=== PATIENT | female | born 1950 | race African-American/Black ===

== ENCOUNTER 2016-07-16 18:44 | Observation (INO) | payer OTHER ==
--- NOTE | 2016-07-16 18:52 | PDOC ---
History of Present Illness - General History Source: Patient Exam Limitations: No Limitations - History of Present Illness Initial Comments: 07/16/16 19:15 Patient is a 66 year old female with significant past medical history of hypertension, IDDM and schizophrenia who presents to the ED via EMS from [facility] for falling asleep at dinner. As per EMS they had difficulty waking the patient up so she was brought in to the ED. Patient in ED has 101 fever orally. Patient is a poor historian. Patient denies any fever, chills, nausea, vomiting or diarrhea. Social history: smoker (1 pack a day ) <Ute Arizmendi - Last Filed: 07/16/16 21:45> <Chantal Bridges - Last Filed: 07/17/16 16:23> - General Chief Complaint: Weakness Stated Complaint: WEAKNESS Time Seen by Provider: 07/16/16 18:52 Past History <Ute Arizmendi - Last Filed: 07/16/16 21:45> - Past Medical History Diabetes: Yes HTN: Yes Hypercholesterolemia: Yes Seizures: Yes - Surgical History Cardiac Surgery: Yes (CARD CATH) - Immunization History Immunization Up to Date: Yes - Psycho/Social/Smoking Cessation Hx Anxiety: No Suicidal Ideation: No Smoking Status: Yes Smoking History: Current every day smoker Number of Cigarettes Smoked Daily: 5 'Breaking Loose' booklet given: 01/28/14 Hx Alcohol Use: No Drug/Substance Use Hx: No <Chantal Bridges - Last Filed: 07/17/16 16:23> - Past Medical History Allergies/Adverse Reactions: Allergies Allergy/AdvReac Type Severity Reaction Status Date / Time No Known Allergies Allergy Verified 07/16/16 19:51 Home Medications: Ambulatory Orders Amlodipine Besylate [Norvasc -] 5 mg PO DAILY 01/28/14 Labetalol HCl [Normodyne -] 400 mg PO Q12H 01/28/14 Levetiracetam [Levetiracetam ER] 500 mg PO BID 01/28/14 Losartan Potassium 50 mg PO DAILY 01/28/14 Acetaminophen [Mapap] 650 mg PO BID 07/16/16 Hydralazine HCl [Apresoline -] 25 mg PO TID 07/16/16 Insulin Lispro [Humalog] 4 unit SQ TID 07/16/16 Mirtazapine [Remeron -] 15 mg PO HS 07/16/16 Pantoprazole Sodium 40 mg PO DAILY 07/16/16 Rivaroxaban [Xarelto -] 20 mg PO DAILY 07/17/16 Review of Systems - Review of Systems Able to Perform ROS?: Yes Comments:: 07/16/16 19:16 CONSTITUTIONAL: Absent: fever, no chills, no fatigue EYES: Absent: visual changes ENT: Absent: ear pain, no sore throat CARDIOVASCULAR: Absent: chest pain, no palpitations RESPIRATORY: Absent: cough, no SOB GI: Absent: abdominal pain, no nausea, no vomiting, no constipation, no diarrhea GENITOURINARY: Absent: dysuria, no frequency, no hematuria MUSCULOSKELETAL: Absent: back pain, no arthralgia, no myalgia SKIN: Absent: rash NEURO: Absent: headache <Ute Arizmendi - Last Filed: 07/16/16 21:45> *Physical Exam - Vital Signs Last Vital Signs Temp Pulse Resp BP Pulse Ox 101 F H 20 126/74 100 07/16/16 18:47 07/16/16 18:47 07/16/16 18:47 07/16/16 18:47 - Physical Exam Comments: 07/16/16 19:16 GENERAL: Well-appearing, well-nourished. No apparent distress. HEENT: Normocephalic, atraumatic. PERRL, EOM intact. CARDIOVASCULAR: Normal S1, S2. Regular rate and rhythm. PULMONARY: Clear to auscultation bilaterally. ABDOMEN: Soft, non-distended, non-tender. EXTREMITIES: Normal ROM in all four extremities. No gross deformities. SKIN: Warm, dry. No rash NEUROLOGICAL: No focal neurological deficits. <Ute Arizmendi - Last Filed: 07/16/16 21:45> Heart Score/ECG Review #1 07/16/16 21:[address] Bridges. Impression: Normal sinus rhythm Left ventricular hypertrophy with repolarization abnormality Vent rate 76 bpm QRS duration 90 ms <Ute Arizmendi - Last Filed: 07/16/16 21:45> ED Treatment Course - LABORATORY CBC & Chemistry Diagram: 07/16/16 19:10 07/16/16 19:10 - RADIOLOGY Radiology Studies Ordered: 07/16/16 21:45 EXAM: CT head without contrast FINDINGS: Surgical skin breana and soft tissue scalp swelling is noted over the left parietal region near the vertex. There is no skull fracture seen. There is no acute intracranial hemorrhage. There is mild hyperostosis frontalis interna. There is moderate diffuse cortical atrophy present. There are regions of chronic infarction noted in the bilateral basal ganglia. There is no obvious acute infarction. No mass lesion is seen. Arterial calcifications are noted. <Ute Arizmendi - Last Filed: 07/16/16 21:45> - LABORATORY CBC & Chemistry Diagram: 07/17/16 06:30 07/17/16 06:25 <Chantal Bridges - Last Filed: 07/17/16 16:23> Medical Decision Making - Medical Decision Making 07/16/16 19:04 66 yo female BIBA from [facility] for weakness -apparently sleeping during dinner -found to have oral temp 101 ROS: patients denies all symptoms PMH HTN,IDDM,Schizophrenia 07/17/16 16:21 CAT scan of the head did not show any acute intracranial pathology There is no leukocytosis on her CBC Date did show urinary tract infection She was given IV Levaquin Tox screen was positive for ecstasy first cardiac enzyme was negative Review chemistry reveals some renal insufficiency/dehydration Glucose initially is only about 70 and she was given some orange juice 66-year-old female who is slightly somnolent found to be on neck strain have your a 101 temp and a UA was admitted for OBS , IV antibiotics <Chantal Bridges - Last Filed: 07/17/16 16:23> *DC/Admit/Observation/Transfer - Attestations Scribe Attestion: 07/16/16 19:16 Documentation prepared by CHRISTINA Garcia, acting as director of medical staff services for Chantal Bridges MD. <Ute Arizmendi - Last Filed: 07/16/16 21:45> - Discharge Dispostion Admit: Yes <Chantal Bridges - Last Filed: 07/17/16 16:23> Diagnosis at time of Disposition: Ecstasy use disorder, mild, abuse Fever Qualifiers: Fever type: other Qualified Code(s): R50.81 - Fever presenting with conditions classified elsewhere Altered mental status Qualifiers: Altered mental status type: somnolence Qualified Code(s): R40.0 - Somnolence UTI (urinary tract infection) Qualifiers: Urinary tract infection type: acute cystitis Hematuria presence: without hematuria Qualified Code(s): N30.00 - Acute cystitis without hematuria - Referrals
[2016-07-16] MEDS ORDERED: ACETAMINOPHEN 325 MG TABLET (FP) PO ONE (19:02)
[2016-07-16] MEDS ORDERED: ACETAMINOPHEN 325 MG TABLET (FP) ONE (19:25)
[2016-07-16 19:29] LABS: MCH 24.9 pg (25.7-33.7); MCHC 32.4 g/dl (32.0-36.0); MEAN CELL VOLUME 77.1 fl (80-96); MEAN PLT VOLUME 8.9 fl (7.5-11.1); PLATELET COUNT 199 K/MM3 (134-434); RDW 18.3 % (11.6-15.6); WHITE BLOOD COUNT 9.7 K/mm3 (4.0-10.0)
[2016-07-16 20:06] LABS: ALBUMIN 3.4 g/dl (3.4-5.0); BILIRUBIN,TOTAL 0.8 mg/dL (0.2-1.0); CALCIUM 8.9 mg/dL (8.5-10.1); CREATININE 1.9 mg/dL (0.55-1.02); TOT PROT 7.6 g/dl (6.4-8.2)
[2016-07-16 20:08] LABS: TROPONIN I 0.04 ng/ml (0.00-0.05)
[2016-07-16 20:30] LABS: PLATELET ESTIMATE ADEQUATE (NORMAL)
[2016-07-16 21:46] LABS: URINE APPEARANCE CLEAR; URINE BILIRUBIN NEGATIVE (NEGATIVE); URINE COLOR YELLOW; URINE GLUCOSE (UA) NEGATIVE (NEGATIVE); URINE KETONE TRACE (NEGATIVE); URINE NITRITE POSITIVE (NEGATIVE); URINE UROBILINOGEN 2.0 E.U/dl E.U./dl (0.2-1.0)
[2016-07-16 21:50] LABS: URINE BLOOD 1+ (NEGATIVE); URINE LEUK ESTERASE 1+ (NEGATIVE); URINE PROTEIN 1+ (NEGATIVE)
[2016-07-16 22:01] LABS: URINE BACTERIA RARE /hpf (NONE SEEN); URINE MUCUS RARE; URINE RBC 14 /hpf (0-3); URINE WBC 48 /hpf (3-5)
[2016-07-16] MEDS ORDERED: LEVOFLOXACIN 500 MG IVPB 100 ML IVPB ONE ×2 (22:06→22:28)
[2016-07-16 22:07] LABS: URINE MARIJUANA THC NEGATIVE ng/ml (CUTOFF=50)
--- NOTE | 2016-07-17 01:30 | PN ---
<Bertram Diop - Last Filed: 07/17/16 01:30> Teaching Attending Note Name of Resident: Kimberlyn Weiss ATTENDING PHYSICIAN STATEMENT I saw and evaluated the patient. I reviewed the resident's note and discussed the case with the resident. I agree with the resident's findings and plan as documented. SUBJECTIVE: OBJECTIVE: ASSESSMENT AND PLAN: <Lashawn Johnson - Last Filed: 07/17/16 02:31> Teaching Attending Note ATTENDING PHYSICIAN STATEMENT I saw and evaluated the patient. I reviewed the resident's note and discussed the case with the resident. I agree with the resident's findings and plan as documented. SUBJECTIVE: Patient is a 66 yo schizophrenic woman with a significant PMHx of HTN, seizures , CAD and IDDM who presents to the ED from [facility] with syncopal episode this evening. Patient is a poor historian. apprentice embalmer report patient was found slumped over at dinner and was difficult to wake up. She notes she had a cough recently. Pt states she feels fine upon evaluation. OBJECTIVE: Last Vital Signs Temp Pulse Resp BP Pulse Ox 101 F H 73 20 130/82 95 07/16/16 18:47 07/16/16 23:07 07/16/16 23:07 07/16/16 23:07 07/16/16 23:07 GENERAL: Awake, alert, oriented, in no acute distress. Speaking full sentences. HEENT: Atraumatic. PERRLA, EOMI. Moist mucosa. No JVD LUNGS: No distress, speaks full sentences, bilateral course expiratory wheezing HEART: Regular rate and rhythm, normal S1 and S2, 2/6 systolic ejection murmur, rubs or gallops, peripheral pulses normal and equal bilaterally. ABDOMEN: Soft, nontender, normoactive bowel sounds. No guarding, no rebound. No masses EXTREMITIES: Normal inspection, Normal range of motion, no edema. No clubbing or cyanosis. NEUROLOGICAL: Cranial nerves II through XII grossly intact. Normal speech, normal gait, no focal sensorimotor deficits SKIN: Warm, Dry, normal turgor, no rashes or lesions noted. ECG NSR @ 76 bpm Left ventricular hypertrophy with repolarization abnormality Abnormal ECG ASSESSMENT AND PLAN: Who presents with syncope and acute on chronic renal failure, positive MDMA and UTI. 1.) Syncope -Echo -Carotid US -Trend tropins/ ECG -Most likely from drug use / UTI 2.) Positive MDMA - IVF 3.) UTI -Levaquin 4.) IDDM -RAISS -Finger sticks -Diabetic diet 5.) Healthcare acquired pneumonia -Urine antigens -Sputum culture -Flu swab -Continue levaquin 6.) Questionable COPD -SOB -Continue with solsumedrol -Out patient PFT -Duonabs -Eventually needs CT for long smoking history 7.) Seizure disorder -Continue with Keppra -Check levels in AM 8.) DEZ -check urine lytes -hydrate -consider renal US -hold ARB DVT ppx Low risk ambulate Of note: Pt on Xarelto. Hold due to renal failure. Unknown reason, need Hx from [facility]. Documentation prepared by Lashawn Johnson, acting as medical transcription for Bertram Diop M.D.
--- NOTE | 2016-07-17 02:05 | HP ---
CHIEF COMPLAINT: Near syncop PCP: Gissell Galvin HISTORY OF PRESENT ILLNESS: Unable to obtain due to patients medical condition and is a poor historian. Information retrieved from ED provider, labs, images, and previous documentation. Patient is a 66 year old female from [facility] with a PMHx of IDDM , HTN, CAD, seizures, and schizophrenia who presents to the ED for a syncopal episode noticed by the [facility] staff. Patient was having dinner and slumped over, as per nursing staff. Patient is unable to provide history and when asked why she was brought here she states " the [facility] didn't think I look right." Patient does state that she has a nonproductive cough for the last couple of days. ER course was notable for: (1) Chest x-ray (2) Levaquin started (3) Blood and urine cultures Recent Travel: Denies PAST MEDICAL HISTORY: IDDM, HTN, CAD, seizures, and schizophrenia PAST SURGICAL HISTORY: Cardiac catheterization Social History: Smoking: Smoking since she was 20 years old. Now smokes 1 pack per three days Alcohol: Denies Drugs: Denies Family History: Denies Allergies: No Known Allergies Allergy (Verified 07/16/16 19:51) HOME MEDICATIONS: Medication Instructions Recorded Amlodipine Besylate [Norvasc -] 5 mg PO DAILY 01/28/14 Labetalol HCl [Normodyne -] 400 mg PO Q12H 01/28/14 Levetiracetam [Levetiracetam ER] 500 mg PO BID 01/28/14 Losartan Potassium 50 mg PO DAILY 01/28/14 Acetaminophen [Mapap] 650 mg PO BID 07/16/16 Hydralazine HCl [Apresoline -] 25 mg PO TID 07/16/16 Insulin Lispro [Humalog] 0 unit SQ TID 07/16/16 Mirtazapine [Remeron -] 15 mg PO HS 07/16/16 Pantoprazole Sodium 40 mg PO DAILY 07/16/16 Rivaroxaban [Xarelto] 1 each PO DAILY 07/16/16 REVIEW OF SYSTEMS CONSTITUTIONAL: Absent: fever, chills, diaphoresis, generalized weakness, malaise, loss of appetite, weight change HEENT: Absent: rhinorrhea, nasal congestion, throat pain, throat swelling, difficulty swallowing, mouth swelling, ear pain, eye pain, visual changes CARDIOVASCULAR: Absent: chest pain, syncope, palpitations, irregular heart rate, lightheadedness , peripheral edema RESPIRATORY: cough Absent: shortness of breath, dyspnea with exertion, orthopnea, wheezing, stridor , hemoptysis GASTROINTESTINAL: Absent: abdominal pain, abdominal distension, nausea, vomiting, diarrhea, constipation, melena, hematochezia GENITOURINARY: Absent: dysuria, frequency, urgency, hesitancy, hematuria, flank pain, genital pain MUSCULOSKELETAL: Absent: myalgia, arthralgia, joint swelling, back pain, neck pain SKIN: Absent: rash, itching, pallor HEMATOLOGIC/IMMUNOLOGIC: Absent: easy bleeding, easy bruising, lymphadenopathy, frequent infections ENDOCRINE: Absent: unexplained weight gain, unexplained weight loss, heat intolerance, cold intolerance NEUROLOGIC: Absent: headache, focal weakness or paresthesias, dizziness, unsteady gait, seizure, mental status changes, bladder or bowel incontinence PSYCHIATRIC: Absent: anxiety, depression, suicidal or homicidal ideation, hallucinations. PHYSICAL EXAMINATION Vital Signs - 24 hr 07/16/16 07/16/16 18:47 23:07 Temperature 101 F H Pulse Rate [ 73 Apical] Respiratory 20 20 Rate Blood Pressure 126/74 Blood Pressure 130/82 [Right Arm] O2 Sat by Pulse 100 95 Oximetry (%) GENERAL: Awake, alert, and fully oriented, in no acute distress. HEAD: Normal with no signs of trauma. EYES: Pupils equal, round and reactive to light, extraocular movements intact, sclera anicteric, conjunctiva clear. No lid lag. EARS, NOSE, THROAT: Ears normal, nares patent, oropharynx clear without exudates. Moist mucous membranes. NECK: Normal range of motion, supple without lymphadenopathy, JVD, or masses. LUNGS: Bilateral expiratory wheezing. No crackles. No accessory muscle use. HEART: Regular rate and rhythm, 2/6 systolic ejection murmur. Normal S1 and S2 without rub or gallop. ABDOMEN: Soft, nontender, not distended, normoactive bowel sounds, no guarding, no rebound, no masses. No hepatomegaly or splenomegaly. MUSCULOSKELETAL: No CVA tenderness. UPPER EXTREMITIES: No peripheral edema. LOWER EXTREMITIES: No peripheral edema. NEUROLOGICAL: Cranial nerves II-XII intact. Normal speech. PSYCHIATRIC: Cooperative. Good eye contact. Appropriate mood and affect. SKIN: Warm, dry, normal turgor, no rashes or lesions noted. Laboratory Results - last 24 hr 07/16/16 07/16/16 07/16/16 19:10 19:10 19:10 WBC 9.7 D RBC 4.35 Hgb 10.9 D Hct 33.6 MCV 77.1 L MCHC 32.4 RDW 18.3 H Plt Count 199 D MPV 8.9 D Neutrophils % 76.0 D Lymphocytes % 16.0 D Monocytes % 8.0 Differential Comment Manual diff done Platelet Estimate Adequate Platelet Comment Few giant plts Morphology Comment Slide scanned Sodium 141 Potassium 3.9 Chloride 107 Carbon Dioxide 24 Anion Gap 10 BUN 25 H Creatinine 1.9 H D Creat Clearance w eGFR 26.61 POC Glucometer Random Glucose 73 L D Lactic Acid 0.774 Calcium 8.9 Total Bilirubin 0.8 D AST 16 ALT 16 Alkaline Phosphatase 86 Creatine Kinase 221 H D CK-MB (CK-2) 1.745 Troponin I 0.04 Total Protein 7.6 Albumin 3.4 Urine Color Urine Appearance Urine pH Ur Specific [place] Urine Protein Urine Glucose (UA) Urine Ketones Urine Blood Urine Nitrite Urine Bilirubin Urine Urobilinogen Ur Leukocyte Esterase Urine RBC Urine WBC Urine Bacteria Urine Mucus Opiates Screen Methadone Screen Barbiturate Screen Phencyclidine Screen Ur Amphetamines Screen MDMA (Ecstasy) Screen Benzodiazepines Screen Cocaine Screen U Marijuana (THC) Screen 07/16/16 07/16/16 07/16/16 21:35 21:35 22:20 WBC RBC Hgb Hct MCV MCHC RDW Plt Count MPV Neutrophils % Lymphocytes % Monocytes % Differential Comment Platelet Estimate Platelet Comment Morphology Comment Sodium Potassium Chloride Carbon Dioxide Anion Gap BUN Creatinine Creat Clearance w eGFR POC Glucometer Random Glucose Lactic Acid 0.727 Calcium Total Bilirubin AST ALT Alkaline Phosphatase Creatine Kinase CK-MB (CK-2) Troponin I Total Protein Albumin Urine Color Yellow Urine Appearance Clear Urine pH 6.0 Ur Specific [place] 1.018 Urine Protein 1+ H Urine Glucose (UA) Negative Urine Ketones Trace H Urine Blood 1+ H Urine Nitrite Positive Urine Bilirubin Negative Urine Urobilinogen 2.0 e.u/dl H Ur Leukocyte Esterase 1+ H Urine RBC 14 Urine WBC 48 Urine Bacteria Rare Urine Mucus Rare Opiates Screen Negative Methadone Screen Negative Barbiturate Screen Negative Phencyclidine Screen Negative Ur Amphetamines Screen Negative MDMA (Ecstasy) Screen Positive Benzodiazepines Screen Negative Cocaine Screen Negative U Marijuana (THC) Screen Negative 07/17/16 01:11 WBC RBC Hgb Hct MCV MCHC RDW Plt Count MPV Neutrophils % Lymphocytes % Monocytes % Differential Comment Platelet Estimate Platelet Comment Morphology Comment Sodium Potassium Chloride Carbon Dioxide Anion Gap BUN Creatinine Creat Clearance w eGFR POC Glucometer [phone] Random Glucose Lactic Acid Calcium Total Bilirubin AST ALT Alkaline Phosphatase Creatine Kinase CK-MB (CK-2) Troponin I Total Protein Albumin Urine Color Urine Appearance Urine pH Ur Specific [place] Urine Protein Urine Glucose (UA) Urine Ketones Urine Blood Urine Nitrite Urine Bilirubin Urine Urobilinogen Ur Leukocyte Esterase Urine RBC Urine WBC Urine Bacteria Urine Mucus Opiates Screen Methadone Screen Barbiturate Screen Phencyclidine Screen Ur Amphetamines Screen MDMA (Ecstasy) Screen Benzodiazepines Screen Cocaine Screen U Marijuana (THC) Screen EKG: NSR @ 76 bpm, Left ventricular hypertrophy with repolarization abnormality Head CT: No acute pathology Chest X-ray: Right lobe infiltrate. Cardiomegaly ASSESSMENT/PLAN: Patient is a 66 year old female with a PMHx of IDDM, HTN, seizures, and schizophrenia who presented with near syncope episode from the [facility]. Patient found to have UTI, DEZ, and pneumonia. Patient admitted to telemetry for further monitoring and management. Near syncopal episode -CT negative for acute pathology -First troponin 0.4. Continue to trend -ECHO ordered -Carotid Doppler ordered Positive MDMA -IV Normal Saline @50 mls/hr -Treat symptomatically and continue to monitor Urinary Tract Infection -U/A positive for nitrite and 1+ Leukocyte esterase -Levaquin 500mg IV given in ED -Continue Levaquin 250mg IV renally dosed -Urine cultures sent Healthcare acquired Pneumonia -Chest x-ray reveals infiltrate -Continue Levaquin 250mg IV daily -Flu swab -Urine antigen -Sputum culture COPD Exacerbation -No prior history but questionable due to history of smoking -Wheezing on examination -Solu-medrol 125mg IV -DuoNeb PRN -Blood cultures sent Acute Kidney Injury -Creatinine 1.9 with baseline of 1.0-1.1 -Light hydration with IV Normal Saline @50 mls/hr -Urine electrolytes -Kidney Ultrasound -Repeat BMP Seizure Disorder -Continue home medication Keppra 500mg BID -Check levels in the morning HTN -Continue home medication Hydralazine 25mg TID -Continue Home medication Labetalol HCl 400mg Q12H -Continue home medication Norvasc 5mg daily IDDM -Insulin sliding scale -BGM Schizophrenia -Continue Remeron 15mg po HS F/E/N -IV Normal Saline @50 mls/hr -Electrolytes wnl -Sodium controlled diet Prophylaxis -SCD's for prophylaxis -Protonix 40mg PO Disposition -Full code -Admitted to telemetry Patient's ambulatory medications show that she is on Xarelto but for unknown reason. [facility] contacted and were unsure why she is on Xarelto. They said that there will be someone available at [phone] to provide more information. Contact information: [facility] Number: [phone] Patients room number is #219 Visit type - Emergency Visit Emergency Visit: Yes ED Registration Date: 07/16/16 Care time: The patient presented to the Emergency Department on the above date and was hospitalized for further evaluation of their emergent condition. - New Patient This patient is new to me today: Yes Date on this admission: 07/16/16 - Critical Care Critical Care patient: No
[2016-07-17] MEDS ORDERED: methylPREDNISolone NA SUCC 125 MG/2 ML VIAL IVPB ONE (02:21)
[2016-07-17] MEDS ORDERED: ALBUTEROL SO4 2.5/IPRATROPIUM 0.5 INH SOL 3 ML VIAL.NEB. NEB ONE ×3 (02:21→15:06)
[2016-07-17] MEDS ORDERED: ALBUTEROL SO4 2.5/IPRATROPIUM 0.5 INH SOL 3 ML VIAL.NEB. NEB PRN (02:24)
[2016-07-17] MEDS ORDERED: methylPREDNISolone NA SUCC 125 MG/2 ML VIAL ONE (03:02)
[2016-07-17] MEDS: SODIUM CHLORIDE 1,000 ML IV SCH ×2 (03:19→17:46)
[2016-07-17] MEDS ORDERED: hydrALAZINE HCL 25 MG TABLET (FP) ONE (06:31)
[2016-07-17] MEDS: hydrALAZINE HCL 25 MG TABLET (FP) PO SCH ×3 (06:41→23:04)
[2016-07-17] MEDS: INSULIN SLIDING SCALE (NOVOLOG) 1 VIAL SQ SCH ×4 (07:06→23:05)
[2016-07-17 07:15] LABS: BASOPHIL 0.1 % (0-2.0); MCH 25.2 pg (25.7-33.7); MCHC 32.4 g/dl (32.0-36.0); MEAN CELL VOLUME 77.6 fl (80-96); MEAN PLT VOLUME 9.2 fl (7.5-11.1); NEUTROPHILS 89.9 % (42.8-82.8); PLATELET COUNT 189 K/MM3 (134-434); RDW 18.1 % (11.6-15.6); WHITE BLOOD COUNT 8.8 K/mm3 (4.0-10.0)
[2016-07-17 08:13] LABS: ALBUMIN 3.2 g/dl (3.4-5.0); BILIRUBIN,TOTAL 1.1 mg/dL (0.2-1.0); CALCIUM 9.6 mg/dL (8.5-10.1); CREATININE 1.6 mg/dL (0.55-1.02); TOT PROT 7.2 g/dl (6.4-8.2)
[2016-07-17] MEDS ORDERED: LEVOFLOXACIN 250 MG IVPB 50 ML IVPB ONE ×2 (10:00→12:26)
[2016-07-17] MEDS ORDERED: PATIENT'S OWN MEDICATION (NON-FORMULARY) (Rivaroxaban [Xarelto] 1 EACH) PO SCH (10:00)
--- NOTE | 2016-07-17 11:06 | EKG ---
Test Reason : Blood Pressure : / mmHG Vent. Rate : 076 BPM Atrial Rate : 076 BPM P-R Int : 160 ms QRS Dur : 090 ms QT Int : 412 ms P-R-T Axes : 060 -20 130 degrees QTc Int : 463 ms NORMAL SINUS RHYTHM LEFT VENTRICULAR HYPERTROPHY WITH REPOLARIZATION ABNORMALITY ABNORMAL ECG WHEN COMPARED WITH ECG OF 28-JAN-2014 18:36, NO SIGNIFICANT CHANGE WAS FOUND Confirmed by SOHA AMOS MD ([id number]) on 07/17/2016 11:05:56 AM Referred By: Confirmed By:SOHA AMOS MD
[2016-07-17] MEDS: levETIRAcetam XR 500 MG TAB PO SCH ×2 (12:37→23:04)
[2016-07-17] MEDS: LABETALOL HCL 200 MG TABLET (FP) PO SCH ×2 (12:38→23:05)
[2016-07-17] MEDS: PANTOPRAZOLE 40 MG TABLET (FP) PO SCH (12:38)
[2016-07-17] MEDS: amLODIPine BESYLATE 5 MG TABLET (FP) PO SCH (12:38)
[2016-07-17 14:37] VITALS: BMI 27.1
[2016-07-17] MEDS: ALBUTEROL SO4 2.5/IPRATROPIUM 0.5 INH SOL 3 ML VIAL.NEB. NEB SCH (15:06)
--- NOTE | 2016-07-17 18:10 | HOSP ---
Physical Examination Vital Signs: Vital Signs Temperature 98.2 F 07/17/16 09:00 Pulse Rate 90 07/17/16 14:30 Respiratory Rate 18 07/17/16 14:30 Blood Pressure 129/69 07/17/16 14:30 O2 Sat by Pulse Oximetry (%) 97 07/17/16 09:20 Labs: CBC, BMP 07/17/16 06:30 07/17/16 06:25 Hospitalist Encounter Assessment: Subjective: Pt seen and examined in ED. She doesn't remember what happened. She was told she feels asleep at dinner. She currently feels fine, she is eating, denies dysuria, CP, sob, dizziness, change in vision Objective: Last Vital Signs Temp Pulse Resp BP Pulse Ox 98.2 F 90 18 129/69 97 07/17/16 09:00 07/17/16 14:30 07/17/16 14:30 07/17/16 14:30 07/17/16 09:20 PE Neuro: alert, awake, cn 2-12intact HEENT: without teeth Pulm: basilar crackles, no sob CV: s1 s2 rrr no mrg Abd: s nt nd +bs Ext: no edema, warm CBCD WBC 8.8 K/mm3 (4.0-10.0) 07/17/16 06:30 RBC 4.37 M/mm3 (3.60-5.2) 07/17/16 06:30 Hgb 11.0 GM/dL (10.7-15.3) 07/17/16 06:30 Hct 33.9 % (32.4-45.2) 07/17/16 06:30 MCV 77.6 fl (80-96) L 07/17/16 06:30 MCHC 32.4 g/dl (32.0-36.0) 07/17/16 06:30 RDW 18.1 % (11.6-15.6) H 07/17/16 06:30 Plt Count 189 K/MM3 (134-434) 07/17/16 06:30 MPV 9.2 fl (7.5-11.1) 07/17/16 06:30 CMP Sodium 139 mmol/L (136-145) 07/17/16 06:25 Potassium 3.9 mmol/L (3.5-5.1) 07/17/16 06:25 Chloride 105 mmol/L (98-107) 07/17/16 06:25 Carbon Dioxide 24 mmol/L (21-32) 07/17/16 06:25 Anion Gap 10 (8-16) 07/17/16 06:25 BUN 24 mg/dL (7-18) H 07/17/16 06:25 Creatinine 1.6 mg/dL (0.55-1.02) H 07/17/16 06:25 Creat Clearance w eGFR 32.45 (>60) 07/17/16 06:25 Calcium 9.6 mg/dL (8.5-10.1) 07/17/16 06:25 Total Bilirubin 1.1 mg/dL (0.2-1.0) H D 07/17/16 06:25 AST 18 U/L (15-37) 07/17/16 06:25 ALT 13 U/L (12-78) 07/17/16 06:25 Alkaline Phosphatase 81 U/L (45-117) 07/17/16 06:25 Total Protein 7.2 g/dl (6.4-8.2) 07/17/16 06:25 Albumin 3.2 g/dl (3.4-5.0) L 07/17/16 06:25 Current Medications Generic Name Dose Route Start Last Admin Trade Name Michaelq PRN Reason Stop Dose Admin Albuterol/Ipratropium 1 amp 07/17/16 18:00 07/17/16 15:06 Duoneb - NEB 1 amp QIDR LEV Administration Amlodipine Besylate 5 mg 07/17/16 10:00 07/17/16 12:38 Norvasc - PO 5 mg DAILY LEV Administration Hydralazine HCl 25 mg 07/17/16 06:00 07/17/16 15:07 Apresoline - PO 25 mg TID LEV Administration Sodium Chloride 1,000 mls @ 50 mls/hr 07/17/16 02:45 07/17/16 17:46 Normal Saline - IV 07/18/16 02:37 50 mls/hr ASDIR LEV Administration Levofloxacin 50 mls @ 50 mls/hr 07/18/16 10:00 Levaquin 250 Mg Premixed Ivpb - IVPB DAILY LEV Insulin Aspart 1 vial 07/17/16 07:00 07/17/16 17:45 Novolog Vial Sliding Scale - SQ 6 units ACHS LEV Administration Protocol Insulin Aspart 4 units 07/18/16 07:00 Novolog Vial SQ TIDAC LEV Labetalol HCl 400 mg 07/17/16 10:00 07/17/16 12:38 Normodyne - PO 400 mg BID LEV Administration Levetiracetam 500 mg 07/17/16 10:00 07/17/16 12:37 Keppra Xr - PO 500 mg BID LEV Administration Mirtazapine 15 mg 07/17/16 22:00 Remeron - PO HS LEV Pantoprazole Sodium 40 mg 07/17/16 10:00 07/17/16 12:38 Protonix - PO 40 mg DAILY LEV Administration Rivaroxaban 20 mg 07/18/16 10:00 Xarelto - PO DAILY [facility] Assessment: 66 year old female with a PMHx of IDDM, HTN, seizures, and schizophrenia admitted with near syncope episode at adult home. Plan: 1. Near syncopal episode - Mental status appears at baseline, possibly infectious etiology - CTH negative for acute pathology - CD no sign of hemodynamically significant stenosis - ECHO without significant change, nml LVSF, size, trace MR, TR, ?impaired LV relaxation 2. +MDMA on UA - Unclear how pt with mdma, possible wrong urine sample? - Will discuss with pt, half life is 7hrs, no repeat necessary 3. UTI - Urine cx pending - Continue levaquin 250m daily - Dose all meds for cr cl 43.7 4. Community acquired PNA - BC pending, no further fevers - L base infiltrate - On levaquin (day 2) 5. DEZ - D/w PCP Dr. Galvin [phone], cr is around baseline - Continue gentle fluids - Kidney US w/o hydro , atrophic left kidney - Monitor BMP 6. Hx of DVT - Continue xaralto 20mg daily 7. COPD Exacerbation - Resolved, no wheezing - Duonebs PRN 8. Seizure Disorde - No seizure in many years, per PCP - Continue home medication Keppra 500mg BID 9. HTN, controlled - Continue Hydralazine 25mg TID - Continue Labetalol HCl 400mg BID - ContinueNorvasc 5mg daily 10. DM II - Novolog 4units TID - ISS, BGM ACHS 11. Schizophrenia -Continue Remeron 15mg po HS 12. Nutrition - Pt still awaiting dentures - Chopped diet - Magic cup/ensure
[2016-07-17] MEDS ORDERED: LEVOFLOXACIN 500 MG IVPB 100 ML IVPB ONE (22:00)
[2016-07-17] MEDS ORDERED: INSULIN (NOVOLOG) ASPART 100 UNITS/ML 10ML VIAL ONE (22:17)
[2016-07-17] MEDS ORDERED: MIRTAZAPINE 15 MG TABLET (FP) ONE (22:27)
[2016-07-17] MEDS ORDERED: levETIRAcetam 500 MG TABLET (FP) PO ONE (22:27)
[2016-07-17] MEDS: MIRTAZAPINE 15 MG TABLET (FP) PO SCH (23:05)
[2016-07-18] MEDS: INSULIN SLIDING SCALE (NOVOLOG) 1 VIAL SQ SCH ×4 (05:59→22:15)
[2016-07-18] MEDS: INSULIN (NOVOLOG) ASPART 100 UNITS/ML 10ML VIAL SQ SCH ×3 (05:59→16:52)
[2016-07-18] MEDS: hydrALAZINE HCL 25 MG TABLET (FP) PO SCH ×3 (06:02→22:15)
[2016-07-18] MEDS: RIVAROXABAN 20 MG TABLET PO SCH (09:12)
[2016-07-18] MEDS: LABETALOL HCL 200 MG TABLET (FP) PO SCH ×2 (09:12→22:15)
[2016-07-18] MEDS: PANTOPRAZOLE 40 MG TABLET (FP) PO SCH (09:13)
[2016-07-18] MEDS: LEVOFLOXACIN 250 MG IVPB 50 ML IVPB SCH (09:13)
[2016-07-18] MEDS: amLODIPine BESYLATE 5 MG TABLET (FP) PO SCH (09:13)
[2016-07-18] MEDS: levETIRAcetam XR 500 MG TAB PO SCH ×2 (09:23→22:16)
[2016-07-18 10:10] LABS: ALBUMIN 2.9 g/dl (3.4-5.0); CALCIUM 8.4 mg/dL (8.5-10.1); CREATININE 1.8 mg/dL (0.55-1.02)
[2016-07-18 10:12] LABS: BILIRUBIN,TOTAL 0.4 mg/dL (0.2-1.0); TOT PROT 6.7 g/dl (6.4-8.2)
[2016-07-18] MEDS: ALBUTEROL SO4 2.5/IPRATROPIUM 0.5 INH SOL 3 ML VIAL.NEB. NEB SCH ×2 (12:18→14:33)
--- NOTE | 2016-07-18 12:22 | PN ---
Physical Exam: SUBJECTIVE: Patient seen and examined. She feels well, she denies sob/coughing/ loss of consciousness. PT states she normally goes to [place], she remembers the ambulance ride OBJECTIVE: Vital Signs Period Temp Pulse Resp BP Sys/Miller Pulse Ox Last 24 Hr 97.7 F-98.1 F 72-90 18-20 129-162/66-90 95 PE Neuro: alert, awake, cn 2-12intact HEENT: without teeth Pulm: diffuse fine wheeze, otherwise clear CV: s1 s2 rrr no mrg Abd: s nt nd +bs Ext: no edema, warm CMP Sodium 142 mmol/L (136-145) 07/18/16 05:40 Potassium 3.8 mmol/L (3.5-5.1) 07/18/16 05:40 Chloride 111 mmol/L (98-107) H 07/18/16 05:40 Carbon Dioxide 20 mmol/L (21-32) L 07/18/16 05:40 Anion Gap 11 (8-16) 07/18/16 05:40 BUN 41 mg/dL (7-18) H D 07/18/16 05:40 Creatinine 1.8 mg/dL (0.55-1.02) H 07/18/16 05:40 Creat Clearance w eGFR 28.33 (>60) 07/18/16 05:40 Calcium 8.4 mg/dL (8.5-10.1) L 07/18/16 05:40 Total Bilirubin 0.4 mg/dL (0.2-1.0) D 07/18/16 05:40 AST 19 U/L (15-37) 07/18/16 05:40 ALT 16 U/L (12-78) D 07/18/16 05:40 Alkaline Phosphatase 72 U/L (45-117) 07/18/16 05:40 Total Protein 6.7 g/dl (6.4-8.2) 07/18/16 05:40 Albumin 2.9 g/dl (3.4-5.0) L 07/18/16 05:40 Active Medications Generic Name Dose Route Start Last Admin Trade Name Freq PRN Reason Stop Dose Admin Albuterol/Ipratropium 1 amp 07/17/16 18:00 07/18/16 12:18 Duoneb - NEB Not Given QIDR LEV Amlodipine Besylate 5 mg 07/17/16 10:00 07/18/16 09:13 Norvasc - PO 5 mg DAILY LEV Administration Hydralazine HCl 25 mg 07/17/16 06:00 07/18/16 06:02 Apresoline - PO 25 mg TID LEV Administration Levofloxacin 50 mls @ 50 mls/hr 07/18/16 10:00 07/18/16 09:13 Levaquin 250 Mg Premixed Ivpb - IVPB 50 mls/hr DAILY LEV Administration Insulin Aspart 1 vial 07/17/16 07:00 07/18/16 11:54 Novolog Vial Sliding Scale - SQ 2 units ACHS LEV Administration Protocol Insulin Aspart 4 units 07/18/16 07:00 07/18/16 11:55 Novolog Vial SQ 4 units TIDAC [facility] Administration Labetalol HCl 400 mg 07/17/16 10:00 07/18/16 09:12 Normodyne - PO 400 mg BID LEV Administration Levetiracetam 500 mg 07/17/16 10:00 07/18/16 09:23 Keppra Xr - PO 500 mg BID LEV Administration Mirtazapine 15 mg 07/17/16 22:00 07/17/16 23:05 Remeron - PO 15 mg HS LEV Administration Pantoprazole Sodium 40 mg 07/17/16 10:00 07/18/16 09:13 Protonix - PO 40 mg DAILY LEV Administration Rivaroxaban 20 mg 07/18/16 10:00 07/18/16 09:12 Xarelto - PO 20 mg DAILY LEV Administration Microbiology 07/16/16 21:35 Urine Culture - Preliminary Urine - Urine - Catheterized Lactose Fermenting Neg Bacilli Lactose Fermenting Neg Bacilli#2 07/16/16 21:40 Blood Culture - Preliminary Blood - Peripheral Venous NO GROWTH OBTAINED AFTER 24 HOURS, INCUBATION TO CONTINUE FOR 4 DAYS. 07/16/16 19:10 Blood Culture - Preliminary Blood - Peripheral Venous NO GROWTH OBTAINED AFTER 24 HOURS, INCUBATION TO CONTINUE FOR 4 DAYS. 07/16/16 21:50 Respiratory Virus Panel - Preliminary Nasopharyngeal Swab Imaging: - CTH negative for acute pathology - CD no sign of hemodynamically significant stenosis - ECHO 07/17: without significant change, nml LVSF, size, trace MR, TR, ? impaired LV relaxation Assessment: 66 year old female with a PMHx of IDDM, HTN, seizures, and schizophrenia admitted with near syncope episode at adult [facility]. Plan: 1. Near syncopal episode - Resolved - Mental status appears at baseline, possibly infectious etiology 2. +MDMA on UA - She doesn't know what MDMA or ecstasy is - Remeron/Keppra not indicated to have positives 3. UTI - Urine cx pre alejo LFNB - Continue levaquin 250m daily (day3) - Dose all meds for cr cl 40 4. Community acquired PNA - BC NGTD - On levaquin (day 3) 5. DEZ - Cr baseline ~1.6 - Continue gentle fluids - Kidney US w/o hydro, atrophic left kidney - Will obtain urine studies 6. Hx of DVT - Continue xaralto 20mg daily 7. COPD Exacerbation - Duonebs lev qid 8. Seizure Disorde - No seizure in many years, per PCP - Continue home medication Keppra 500mg BID 9. HTN, controlled - Continue Hydralazine 25mg TID - Continue Labetalol HCl 400mg BID - Continue Norvasc 5mg daily 10. DM II - Novolog 4units TID - ISS, BGM ACHS 11. Schizophrenia -Continue Remeron 15mg po HS 12. Nutrition - Pt still awaiting dentures - Chopped diet - Magic cup/ensure Dispo: - PCP Dr. Galvin [phone] Visit type - Emergency Visit Emergency Visit: Yes ED Registration Date: 07/17/16 Care time: The patient presented to the Emergency Department on the above date and was hospitalized for further evaluation of their emergent condition. - New Patient This patient is new to me today: Yes Date on this admission: 07/18/16 - Critical Care Critical Care patient: No
[2016-07-18] MEDS: SODIUM CHLORIDE 1,000 ML IV SCH (13:27)
[2016-07-18] MEDS ORDERED: PT OWN MED DRAWER 7, Y5N ONE (21:30)
[2016-07-18] MEDS: MIRTAZAPINE 15 MG TABLET (FP) PO SCH (22:16)
[2016-07-19] MEDS: ALBUTEROL SO4 2.5/IPRATROPIUM 0.5 INH SOL 3 ML VIAL.NEB. NEB SCH ×3 (00:30→11:10)
[2016-07-19] MEDS: INSULIN (NOVOLOG) ASPART 100 UNITS/ML 10ML VIAL SQ SCH ×2 (06:16→11:55)
[2016-07-19] MEDS: hydrALAZINE HCL 25 MG TABLET (FP) PO SCH ×2 (06:17→13:19)
[2016-07-19] MEDS: INSULIN SLIDING SCALE (NOVOLOG) 1 VIAL SQ SCH ×2 (06:17→11:55)
[2016-07-19 09:27] LABS: CALCIUM 7.9 mg/dL (8.5-10.1); CREATININE 1.7 mg/dL (0.55-1.02)
[2016-07-19] MEDS: LEVOFLOXACIN 250 MG IVPB 50 ML IVPB SCH (09:50)
[2016-07-19] MEDS: RIVAROXABAN 20 MG TABLET PO SCH (09:50)
[2016-07-19] MEDS: LABETALOL HCL 200 MG TABLET (FP) PO SCH (09:50)
[2016-07-19] MEDS: amLODIPine BESYLATE 5 MG TABLET (FP) PO SCH (09:51)
[2016-07-19] MEDS: PANTOPRAZOLE 40 MG TABLET (FP) PO SCH (09:51)
[2016-07-19] MEDS: levETIRAcetam XR 500 MG TAB PO SCH (09:52)
[2016-07-19 10:44] VITALS: BP 134/62; TEMP 98
--- NOTE | 2016-07-19 13:07 | DS ---
Physical Exam: SUBJECTIVE: Patient seen and examined. She offers no complaints, she feels about the same. Denies SOB, difficulty swallowing. OBJECTIVE: Vital Signs Period Temp Pulse Resp BP Sys/Miller Pulse Ox Last 24 Hr 97.8 F-98.8 F 64-72 16-20 122-135/62-93 96-97 PE Neuro: alert, awake, cn 2-12intact HEENT: without teeth Pulm: CTAB CV: s1 s2 rrr no mrg Abd: s nt nd +bs Ext: no edema, warm Laboratory Results - last 24 hr 07/18/16 07/18/16 07/18/16 14:00 14:00 14:00 Sodium Potassium Chloride Carbon Dioxide Anion Gap BUN Creatinine POC Glucometer Random Glucose Calcium U Random Total Protein Cancelled 20 H Ur Random Sodium 64 Ur Random Potassium 28.1 Ur Random Chloride 33 Urine Creatinine Cancelled Cancelled 112.0 Protein/Creatinin Ratio Cancelled 0.48275 07/18/16 07/18/16 07/19/16 15:42 22:15 05:38 Sodium 145 Potassium 4.0 Chloride 115 H Carbon Dioxide 20 L Anion Gap 10 BUN 39 H Creatinine 1.7 H POC Glucometer 194 208 Random Glucose 76 D Calcium 7.9 L U Random Total Protein Ur Random Sodium Ur Random Potassium Ur Random Chloride Urine Creatinine Protein/Creatinin Ratio 07/19/16 07/19/16 05:58 11:54 Sodium Potassium Chloride Carbon Dioxide Anion Gap BUN Creatinine POC Glucometer 87 133 Random Glucose Calcium U Random Total Protein Ur Random Sodium Ur Random Potassium Ur Random Chloride Urine Creatinine Protein/Creatinin Ratio HOSPITAL COURSE: Date of Admission:07/17/16 Date of Discharge: 07/19/16 Minutes to complete discharge: 35 Discharge Summary Reason For Visit: AMS UTI FEVER Current Active Problems Altered mental status (Acute) Ecstasy use disorder, mild, abuse (Acute) Fever (Acute) UTI (urinary tract infection) (Acute) Hospital Course: Initial Hospital Course: Briefly, this 66 year old female from [facility] with a PMHx of IDDM, HTN, CAD, seizures, and schizophrenia presented to the ED for a syncopal episode noticed by the halfway staff. Patient was having dinner and slumped over, as per nursing staff. On arrival to the ED per the ED noted, pt was unable to provide a hx as to why she came, however upon questioning the following day pt states she remembers the ambulance ride, however not falling asleep. When she woke up they told her what happened and that she should go to the hospital, although she did not want to, she says she normally goes [facility]. She reported a non productive cough the last few days prior to being seen. Imaging: - CTH negative for acute pathology - CD no sign of hemodynamically significant stenosis - ECHO 07/17: without significant change, nml LVSF, size, trace MR, TR, ? impaired LV relaxation Subsequent Hospital Course/Progress Note/Discharge Summary by a/p: Assessment: 66 year old female with a PMHx of IDDM, HTN, seizures, and schizophrenia admitted with near syncope episode at adult home [facility]. Plan: 1. Near syncopal episode - Resolved - Imaging negative as above, echo w no change - Mental status appears at baseline, likely infectious etiology 2. UTI - urine cx with e coli and klebsiella pna - To complete levaquin 250mg daily x7days - Dose meds cr cl 43 3. Community acquired PNA - BC NGTD - Levaquin as above 4. DEZ, likely on CKD - Cr baseline ~1.6 - FeNA .75, indicating pre renal - Kidney US w/o hydro, atrophic left kidney - Proteinuria, will refer to water leak repairer, d/w pcp may benefit MARY ANN with DM and CKD 5. HTN, controlled - Continue Hydralazine 25mg TID - Continue Labetalol HCl 400mg BID - Continue Norvasc 5mg daily 6. Hx of DVT - Continue xaralto 20mg daily 7. COPD Exacerbation - Resolved 8. Seizure Disorde - No seizure in many years, per PCP - Continue home medication Keppra 500mg BID 9. DM II - Novolog 4units TID 10. +MDMA on UA - She doesn't know what MDMA or ecstasy is - Remeron/Keppra not indicated to have false positives 11. Schizophrenia -Continue Remeron 15mg po HS 12. Nutrition - Pt still awaiting dentures - Chopped diet - Magic cup/ensure Dispo: - Return to [place], complete abx as above - PCP Dr. Galvin [phone] Condition: Stable - Instructions Diet, Activity, Other Instructions: Please return to the ED for any new, persistent, or worsening symptoms. Follow up with your general doctor in 1 week Take home medications as directed Complete antibiotics levaquin 250mg daily starting tomorrow for 3 more days Referrals: Gissell Galvin MD [Primary Care Provider] - Karan Hernandez MD [Staff Physician] - Disposition: HOME - Home Medications Comprehensive Discharge Medication List: Ambulatory Orders Amlodipine Besylate [Norvasc -] 5 mg PO DAILY 01/28/14 Labetalol HCl [Normodyne -] 400 mg PO Q12H 01/28/14 Levetiracetam [Levetiracetam ER] 500 mg PO BID 01/28/14 Losartan Potassium 50 mg PO DAILY 01/28/14 Acetaminophen [Mapap] 650 mg PO BID 07/16/16 Hydralazine HCl [Apresoline -] 25 mg PO TID 07/16/16 Insulin Lispro [Humalog] 4 unit SQ TID 07/16/16 Mirtazapine [Remeron -] 15 mg PO HS 07/16/16 Pantoprazole Sodium 40 mg PO DAILY 07/16/16 Rivaroxaban [Xarelto -] 20 mg PO DAILY 07/17/16 Levofloxacin [Levaquin -] 250 mg PO DAILY #3 tablet 07/19/16 This patient is new to me today: No Emergency Visit: Yes ED Registration Date: 07/17/16 Care time: The patient presented to the Emergency Department on the above date and was hospitalized for further evaluation of their emergent condition. Critical Care patient: No - Discharge Referral Referred to [facility] Med P.C.: No
[2016-07-19] MEDS: SODIUM CHLORIDE 1,000 ML IV SCH (13:19)
[2016-07-19 13:45] VITALS: PULSE 65
== END 2016-07-19 14:39 | disposition home or self-care (01) ==
LOC: JER 18:44 → UNDOADMOB 07-17 02:09 → JERBED 07-17 02:09 → J4W 07-18 00:26
PROVIDERS: ADMIT Internal Medicine; ATTEND Nurse Practitioner Acute Care
DX: N39.0 Urinary tract infection, site not specified (principal); I10 Essential (primary) hypertension; E11.9 Type 2 diabetes mellitus without complications; F20.89 Other schizophrenia; J18.9 Pneumonia, unspecified organism; G40.802 Other epilepsy, not intractable, without status epilepticus; N17.9 Acute kidney failure, unspecified; I25.10 Atherosclerotic heart disease of native coronary artery without angina pectoris; F17.200 Nicotine dependence, unspecified, uncomplicated; J44.1 Chronic obstructive pulmonary disease with (acute) exacerbation; I12.9 Hypertensive chronic kidney disease with stage 1 through stage 4 chronic kidney disease, or unspecified chronic kidney disease; N18.9 Chronic kidney disease, unspecified
CPT/HCPCS: 36415; 70450-TC; 71010-TC; 76775-TC; 80048; 80053; 80307; 81003; 81015; 82436; 82550; 82553; 82570; 83605; 84133; 84156; 84300; 84484; 85025; 87040; 87086; 87186; 87254; 87804; 93005; 93010; 93306-TC; 93880-TC; 94640; 97116-GP; 97161-GP; 99285-25; G0378

== ENCOUNTER 2016-09-17 18:25 | Emergency (ER) | payer OTHER ==
--- NOTE | 2016-09-17 18:39 | PDOC ---
History of Present Illness - General History Source: Patient, Old Records Exam Limitations: No Limitations - History of Present Illness Initial Comments: 09/17/16 18:54 The patient is a 66 year old female with past medical history IDDM and schizophrenia brought BIBA from [facility] for further evaluations of right nares epistaxis for one hour. On examination, the patient was not actively bleeding but did have some dry blood in and around her right nares. The patient notes that she take Xarelto. <Renny Cat - Last Filed: 09/17/16 20:54> <Chantal Bridges - Last Filed: 09/18/16 01:17> - General Chief Complaint: Nasal Bleeding Stated Complaint: NOSE BLEED Time Seen by Provider: 09/17/16 18:37 Past History <Renny Cat - Last Filed: 09/17/16 20:54> - Past Medical History Cardiac Disorders: (cardiac cath) Diabetes: Yes HTN: Yes Hypercholesterolemia: Yes Seizures: Yes - Surgical History Cardiac Surgery: Yes (CARD CATH) - Immunization History Immunization Up to Date: Yes - Psycho/Social/Smoking Cessation Hx Anxiety: No Suicidal Ideation: No Smoking Status: Yes Smoking History: Current every day smoker Number of Cigarettes Smoked Daily: 5 'Breaking Loose' booklet given: 01/28/14 Hx Alcohol Use: No Drug/Substance Use Hx: No <Chantal Bridges - Last Filed: 09/18/16 01:17> - Past Medical History Allergies/Adverse Reactions: Allergies Allergy/AdvReac Type Severity Reaction Status Date / Time No Known Allergies Allergy Verified 09/17/16 18:40 Home Medications: Ambulatory Orders Amlodipine Besylate [Norvasc -] 5 mg PO DAILY 01/28/14 Labetalol HCl [Normodyne -] 400 mg PO Q12H 01/28/14 Levetiracetam [Levetiracetam ER] 500 mg PO BID 01/28/14 Losartan Potassium 50 mg PO DAILY 01/28/14 Acetaminophen [Mapap] 650 mg PO BID 07/16/16 Hydralazine HCl [Apresoline -] 25 mg PO TID 07/16/16 Insulin Lispro [Humalog] 4 unit SQ TID 07/16/16 Mirtazapine [Remeron -] 15 mg PO HS 07/16/16 Pantoprazole Sodium 40 mg PO DAILY 07/16/16 Rivaroxaban [Xarelto -] 20 mg PO DAILY 07/17/16 Review of Systems - Review of Systems Able to Perform ROS?: Yes Comments:: 09/17/16 18:54 CONSTITUTIONAL: Absent: fever, chills, diaphoresis, generalized weakness, malaise, loss of appetite HEENT: Present: Right nares epistaxis Absent: throat pain, throat swelling, difficulty swallowing, mouth swelling, ear pain, eye pain, visual Changes CARDIOVASCULAR: Absent: chest pain, syncope, palpitations, irregular heart rate, lightheadedness , peripheral edema RESPIRATORY: Absent: cough, shortness of breath, dyspnea with exertion, orthopnea, wheezing, stridor, hemoptysis GASTROINTESTINAL: Absent: abdominal pain, abdominal distension, nausea, vomiting, diarrhea, constipation, melena, hematochezia GENITOURINARY: Absent: dysuria, frequency, urgency, hesitancy, hematuria, flank pain, genital pain MUSCULOSKELETAL: Absent: myalgia, arthralgia, joint swelling SKIN: Absent: rash, itching, pallor HEMATOLOGIC/IMMUNOLOGIC: Absent: easy bleeding, easy bruising, lymphadenopathy, frequent infections ENDOCRINE: Absent: unexplained weight gain, unexplained weight loss, heat intolerance, cold intolerance NEUROLOGIC: Absent: headache, focal weakness or paresthesias, dizziness, unsteady gait, seizure, mental status changes, bladder or bowel incontinence PSYCHIATRIC: Absent: anxiety, depression, suicidal or homicidal ideation, hallucinations. <Renny Cat - Last Filed: 09/17/16 20:54> *Physical Exam - Vital Signs Last Vital Signs Temp Pulse Resp BP Pulse Ox 99.2 F 67 18 160/90 99 09/17/16 18:35 09/17/16 18:35 09/17/16 18:35 09/17/16 18:35 09/17/16 18:35 - Physical Exam Comments: 09/17/16 18:54 GENERAL: Well developed, well nourished. Awake and alert. No acute distress. HEENT: (+) Dried blood under right nares. Normocephalic, atraumatic. PERRLA, EOMI. No conjunctival pallor. Sclera are non-icteric. Moist mucous membranes. Oropharynx is clear. NECK: Supple. Full ROM. No JVD. Carotid pulses 2+ and symmetric, without bruits. No thyromegaly. No lymphadenopathy. CARDIOVASCULAR: Regular rate and rhythm. No murmurs, rubs, or gallops. Distal pulses are 2+ and symmetric. PULMONARY: (+) Left lower lung scattered wheezing. No evidence of respiratory distress. Lungs clear to auscultation bilaterally. No rales or rhonchi. ABDOMINAL: Soft. Non-tender. Non-distended. No rebound or guarding. No organomegaly. Normoactive bowel sounds. MUSCULOSKELETAL Normal range of motion at all joints. No bony deformities or tenderness. No CVA tenderness. EXTREMITIES: No cyanosis. No clubbing. No edema. No calf tenderness. SKIN: Warm and dry. Normal capillary refill. No rashes. No jaundice. NEUROLOGICAL: Alert, awake, appropriate. Cranial nerves 2-12 intact. No deficits to light touch and temperature in face, upper extremities and lower extremities. No motor deficits in the in face, upper extremities and lower extremities. Normoreflexic in the upper and lower extremities. Normal speech. Toes are down-going bilaterally. PSYCHIATRIC: Cooperative. Good eye contact. Appropriate mood and affect. <Renny Cat - Last Filed: 09/17/16 20:54> ED Treatment Course - LABORATORY CBC & Chemistry Diagram: 09/17/16 18:50 09/17/16 18:50 - RADIOLOGY Radiograph Interpretation: 09/17/16 20:54 1. CXR IMPRESSION: No official read. No acute findings <Renny Cat - Last Filed: 09/17/16 20:54> - LABORATORY CBC & Chemistry Diagram: 09/17/16 18:50 09/17/16 18:50 <Chantal Bridges - Last Filed: 09/18/16 01:17> Medical Decision Making - Medical Decision Making 09/17/16 20:30 66 yo female YEIMI from [facility] residency for epistaxis. She has dried blood in her right nares. There is no active bleeding at this time -EMS states that she has a h/o nose bleeds -I asked her if she pinched her nose to stop the bleeding and she said she did not Bleeding stopped spontaneously pmh- diabetes,schizophrenia -she is on eliquis labs reviewed, no signidicant anemia -glucose was only in the fifties and she was given dinner 09/18/16 01:17 <Chantal Bridges - Last Filed: 09/18/16 01:17> *DC/Admit/Observation/Transfer - Attestations Scribe Attestion: 09/17/16 18:55 Documentation prepared by Renny Cat, acting as director of medical services for Chantal Bridges MD. <Renny Cat - Last Filed: 09/17/16 20:54> <Chantal Bridges - Last Filed: 09/18/16 01:17> Diagnosis at time of Disposition: Hemorrhage of nose - Discharge Dispostion Disposition: HOME Condition at time of disposition: Stable - Patient Instructions Printed Discharge Instructions: DI for Nosebleed Additional Instructions: Please read your hand out on how to prevent nose bleeds
[2016-09-17 19:00] VITALS: BMI 25.7
[2016-09-17 19:02] LABS: MCH 24.9 pg (25.7-33.7); MCHC 32.1 g/dl (32.0-36.0); MEAN CELL VOLUME 77.7 fl (80-96); MEAN PLT VOLUME 8.8 fl (7.5-11.1); NEUTROPHILS 58.3 % (42.8-82.8); RDW 18.7 % (11.6-15.6); WHITE BLOOD COUNT 5.6 K/mm3 (4.0-10.0)
[2016-09-17 19:22] LABS: PLATELET COMMENT2 NO CLUMPING NOTED; PLATELET COUNT 173 K/MM3 (134-434); PLATELET ESTIMATE DECREASED (NORMAL)
[2016-09-17 19:27] LABS: ALBUMIN 3.7 g/dl (3.4-5.0); BILIRUBIN,TOTAL 0.3 mg/dL (0.2-1.0); CALCIUM 8.9 mg/dL (8.5-10.1); CREATININE 1.6 mg/dL (0.55-1.02); TOT PROT 7.7 g/dl (6.4-8.2)
[2016-09-18 06:27] VITALS: TEMP 97.9
[2016-09-18] MEDS ORDERED: levETIRAcetam 500 MG TABLET (FP) PO ONE ×2 (10:51→10:52)
[2016-09-18 12:38] VITALS: BP 159/88; PULSE 78
== END 2016-09-18 12:44 | disposition home or self-care (01) ==
LOC: JER 18:25
DX: R04.0 Epistaxis (principal); I10 Essential (primary) hypertension; E11.9 Type 2 diabetes mellitus without complications; Z79.4 Long term (current) use of insulin; G40.909 Epilepsy, unspecified, not intractable, without status epilepticus; E78.00 Pure hypercholesterolemia, unspecified; F20.9 Schizophrenia, unspecified; F17.210 Nicotine dependence, cigarettes, uncomplicated; Z79.01 Long term (current) use of anticoagulants
CPT/HCPCS: 36415; 71010-TC; 80053; 85025; 87804; 99284-25

== ENCOUNTER 2016-11-13 14:55 | Emergency (ER) | payer OTHER ==
[2016-11-13 15:36] VITALS: BP 160/96; PULSE 74; TEMP 98.5; BMI 25.7
--- NOTE | 2016-11-13 16:49 | PDOC ---
History of Present Illness - General Stated Complaint: FALL Time Seen by Provider: 11/13/16 16:27 History Source: Patient Exam Limitations: No Limitations - History of Present Illness Initial Comments: 11/13/16 16:44 Patient sent from [facility], for evaluation of left knee pain. States when turning in her room, spun to fast causing her to collide with the dresser. States she fell back into her bed, but did not incur any significant injury. States has some mild tenderness to her knee but is ambulatory denies any other injury, numbness or tingling, no back injury no head injury. Occurred: reports: just prior to arrival Severity: reports: mild Pain Location: reports: lower extremity (left knee) Modifying Factors: improves with: cold therapy Past History - Travel Traveled outside of the country in the last 30 days: No Close contact w/someone who was outside of country & ill: No - Past Medical History Allergies/Adverse Reactions: Allergies Allergy/AdvReac Type Severity Reaction Status Date / Time No Known Allergies Allergy Verified 09/17/16 18:40 Home Medications: Ambulatory Orders Amlodipine Besylate [Norvasc -] 5 mg PO DAILY 01/28/14 Labetalol HCl [Normodyne -] 400 mg PO Q12H 01/28/14 Levetiracetam [Levetiracetam ER] 500 mg PO BID 01/28/14 Losartan Potassium 50 mg PO DAILY 01/28/14 Acetaminophen [Mapap] 650 mg PO BID 07/16/16 Hydralazine HCl [Apresoline -] 25 mg PO TID 07/16/16 Insulin Lispro [Humalog] 4 unit SQ TID 07/16/16 Mirtazapine [Remeron -] 15 mg PO HS 07/16/16 Pantoprazole Sodium 40 mg PO DAILY 07/16/16 Rivaroxaban [Xarelto -] 20 mg PO DAILY 07/17/16 Cardiac Disorders: (cardiac cath) Diabetes: Yes HTN: Yes Hypercholesterolemia: Yes Seizures: Yes - Surgical History Cardiac Surgery: Yes (CARD CATH) - Immunization History Immunization Up to Date: Yes - Psycho/Social/Smoking Cessation Hx Anxiety: No Suicidal Ideation: Yes Smoking Status: Yes Smoking History: Current some day smoker Have you smoked in the past 12 months: Yes Number of Cigarettes Smoked Daily: 3 Information on smoking cessation initiated: Yes 'Breaking Loose' booklet given: 01/28/14 Hx Alcohol Use: No Drug/Substance Use Hx: No Trauma Specific PMHX - Complaint Specific PMHX Back Injury: No Neck Injury: No Review of Systems - Review of Systems Able to Perform ROS?: Yes Is the patient limited Slovenian proficient: Yes HEENTM: No: Symptoms Reported Musculoskeletal: Yes: Symptoms Reported, See HPI, Joint Pain Integumentary: Yes: Symptoms Reported, Bruising Neurological: Yes: Symptoms reported, See HPI All Other Systems: Reviewed and Negative *Physical Exam - Vital Signs Last Vital Signs Temp Pulse Resp BP Pulse Ox 98.5 F 74 20 160/96 98 11/13/16 15:26 11/13/16 15:26 11/13/16 15:26 11/13/16 15:11/13/16 15:26 - Physical Exam General Appearance: Yes: Nourished, Appropriately Dressed, Apparent Distress HEENT: positive: PAWEL, Normal ENT Inspection, TMs Normal, Pharynx Normal Neck: positive: Tender, Supple Respiratory/Chest: positive: Lungs Clear, Normal Breath Sounds Cardiovascular: positive: Regular Rate Gastrointestinal/Abdominal: positive: Tender, Soft Extremity: positive: Normal Capillary Refill, Normal Inspection, Normal Range of Motion (but tender ) Integumentary: positive: Normal Color, Ecchymosis, Bruising (faint to patella- mobile, no crepitus or step-offs, has some deformities with chronic changes to bilateral knees, no medial or lateral tenderness, negative posterior fossa tenderness. Is ambulatory without tenderness with weightbearing.) Neurologic: positive: tip printer II-XII NML intact, Fully Oriented, Alert, Normal Mood/ Affect, Normal Response, Motor Strength 5/5 Progress Note - Progress Note Progress Note: Contusion to patella, no significant injury. Will return to assisted *DC/Admit/Observation/Transfer Diagnosis at time of Disposition: Contusion Qualifiers: Encounter type: initial encounter Contusion area: knee Laterality: left Qualified Code(s): S80.02XA - Contusion of left knee, initial encounter - Discharge Dispostion Disposition: HOME Condition at time of disposition: Stable Admit: No - Patient Instructions Printed Discharge Instructions: DI for Contusion Additional Instructions: Rest, ice to area on and off for 15 minutes 4-6 times a day Avoid heavy lifting or exercise until pain and swelling is resolved or until further directed Keep area highly elevated to reduce swelling Use splints/Juan Ramon wrap as directed Followup with orthopedist in one to 2 days if not improving, if significantly improved may wait one week for followup with orthopedist May use ibuprofen 2-200 mg tablets every 6 hours as needed for pain
== END 2016-11-13 17:10 | disposition home or self-care (01) ==
LOC: JERFT 14:55
DX: S80.02XA Contusion of left knee, initial encounter (principal); W01.190A Fall on same level from slipping, tripping and stumbling with subsequent striking against furniture, initial encounter; Y93.89 Activity, other specified; Y92.122 Bedroom in nursing home as the place of occurrence of the external cause; I10 Essential (primary) hypertension; E11.9 Type 2 diabetes mellitus without complications; Z79.4 Long term (current) use of insulin; E78.00 Pure hypercholesterolemia, unspecified; G40.909 Epilepsy, unspecified, not intractable, without status epilepticus; Z98.61 Coronary angioplasty status
CPT/HCPCS: 99281-25

== ENCOUNTER 2017-10-31 15:12 | Inpatient (IN) | payer OTHER ==
--- NOTE | 2017-10-31 16:12 | PDOC ---
History of Present Illness <Krissy Garcia - Last Filed: 10/31/17 18:45> - General History Source: Patient Exam Limitations: No Limitations - History of Present Illness Initial Comments: 10/31/17 16:24 The patient is a 67 year old female from [facility] with past medical history of hypertension, diabetes and schizophrenia who presents to the emergency room with complaints of shortness of breath for the past hour. She reports associated cough and denies any chest pain or lower extremity swelling. She denies use of at home O2, and denies using any breathing treatments. Denies any associated fever, chills, nausea, vomiting, diarrhea, or urinary symptoms. Overall she is a poor historian. The patient was admitted at [facility] last week for a fall. Allergies: NKDA Social: Cigarette smoker PCP: Reports none <Guillermina Gregg - Last Filed: 10/31/17 20:36> <Ct Ang - Last Filed: 10/31/17 20:54> - General Chief Complaint: Shortness of Breath Stated Complaint: DIFFICULTY BREATHING Time Seen by Provider: 10/31/17 15:52 Past History <Krissy Garcai - Last Filed: 10/31/17 18:45> <Guillermina Gregg - Last Filed: 10/31/17 20:36> - Past Medical History Cardiac Disorders: (cardiac cath) COPD: No Diabetes: Yes HTN: Yes Hypercholesterolemia: Yes Seizures: Yes Lung CA: Yes (SCHIZOPHRENIA) - Surgical History Cardiac Surgery: Yes (CARD CATH) - Immunization History Immunization Up to Date: Yes - Suicide/Smoking/Psychosocial Hx Smoking Status: Yes Smoking History: Current some day smoker Have you smoked in the past 12 months: Yes Number of Cigarettes Smoked Daily: 5 Information on smoking cessation initiated: Yes 'Breaking Loose' booklet given: 01/28/14 Hx Alcohol Use: No Drug/Substance Use Hx: No <Ct Ang - Last Filed: 10/31/17 20:54> - Past Medical History Allergies/Adverse Reactions: Allergies Allergy/AdvReac Type Severity Reaction Status Date / Time No Known Allergies Allergy Verified 10/31/17 15:42 Home Medications: Ambulatory Orders Amlodipine Besylate [Norvasc -] 5 mg PO DAILY 01/28/14 Labetalol HCl [Normodyne -] 400 mg PO Q12H 01/28/14 Levetiracetam [Levetiracetam ER] 500 mg PO BID 01/28/14 Losartan Potassium 50 mg PO DAILY 01/28/14 Acetaminophen [Mapap] 650 mg PO BID 07/16/16 Insulin Lispro [Humalog] 4 unit SQ TID 07/16/16 Mirtazapine [Remeron -] 15 mg PO HS 07/16/16 Pantoprazole Sodium 40 mg PO DAILY 07/16/16 hydrALAZINE HCL [Apresoline -] 25 mg PO TID 07/16/16 Rivaroxaban [Xarelto -] 20 mg PO DAILY 07/17/16 Review of Systems - Review of Systems Able to Perform ROS?: Yes Comments:: 10/31/17 16:24 GENERAL/CONSTITUTIONAL: No fever or chills. No weakness. HEAD, EYES, EARS, NOSE AND THROAT: No change in vision. No ear pain or discharge. No sore throat. CARDIOVASCULAR: (+) Shortness of breath. No chest pain. RESPIRATORY:(+) Cough. No wheezing, or hemoptysis. GASTROINTESTINAL: No nausea, vomiting, diarrhea or constipation. GENITOURINARY: No dysuria, frequency, or change in urination. MUSCULOSKELETAL: No joint or muscle swelling or pain. No neck or back pain. SKIN: No rash NEUROLOGIC: No headache, vertigo, loss of consciousness, or change in strength/ sensation. ENDOCRINE: No increased thirst. No abnormal weight change. HEMATOLOGIC/LYMPHATIC: No anemia, easy bleeding, or history of blood clots. ALLERGIC/IMMUNOLOGIC: No hives or skin allergy. All Other Systems: Reviewed and Negative <Guillermina Gregg - Last Filed: 10/31/17 20:36> *Physical Exam - Vital Signs Last Vital Signs Temp Pulse Resp BP Pulse Ox 97.3 F L 86 28 H 172/84 92 L 10/31/17 15:35 10/31/17 16:00 10/31/17 15:35 10/31/17 15:35 10/31/17 16:00 <Krissy Garcia - Last Filed: 10/31/17 18:45> - Vital Signs Last Vital Signs Temp Pulse Resp BP Pulse Ox 97.3 F L 87 28 H 172/84 88 L 10/31/17 15:35 10/31/17 15:35 10/31/17 15:35 10/31/17 15:35 10/31/17 15:35 - Physical Exam Comments: 10/31/17 16:25 GENERAL: Smells of cigarette smoke. On O2. Awake, alert, and fully oriented, in no acute distress HEAD: No signs of trauma EYES: PERRLA, EOMI, sclera anicteric, conjunctiva clear ENT: Auricles normal inspection, hearing grossly normal, nares patent, oropharynx clear without exudates. Moist mucosa NECK: Normal ROM, supple, no lymphadenopathy, JVD, or masses LUNGS: Rhonchorus breath sounds bilaterally, deminished at the bases. Tachypneic , conversational dyspnea. No wheezes, and no crackles HEART: Regular rate and rhythm, normal S1 and S2, no murmurs, rubs or gallops ABDOMEN: Soft, nontender, normoactive bowel sounds. No guarding, no rebound. No masses EXTREMITIES: Normal range of motion, no edema. No clubbing or cyanosis. No cords, erythema, or tenderness NEUROLOGICAL: Cranial nerves II through XII grossly intact. Normal speech, normal gait SKIN: Warm, Dry, normal turgor, no rashes or lesions noted. <Guillermina Gregg - Last Filed: 10/31/17 20:36> - Vital Signs Last Vital Signs Temp Pulse Resp BP Pulse Ox 97.3 F L 87 28 H 172/84 88 L 10/31/17 15:35 10/31/17 15:35 10/31/17 15:35 10/31/17 15:35 10/31/17 15:35 <Ct Ang - Last Filed: 10/31/17 20:54> ED Treatment Course - LABORATORY CBC & Chemistry Diagram: 10/31/17 16:56 10/31/17 16:56 - ADDITIONAL ORDERS Additional order review: Laboratory Results 10/31/17 10/31/17 10/31/17 18:01 16:56 16:56 PT with INR 22.70 H INR 2.01 H D PTT (Actin FS) 40.9 H D Anticoagulation Therapy No Result Required. Puncture Site No Result Required. ABG pH 7.34 L ABG pCO2 at Pt Temp 45.2 H ABG pO2 at Pt Temp 49.7 L* ABG HCO3 23.8 ABG O2 Sat (Measured) 81.3 L ABG O2 Content 13.9 L ABG Base Excess -1.5 Sammy Test Positive Carboxyhemoglobin 2.3 H Methemoglobin 1.6 H O2 Delivery Device No Result Required. Oxygen Flow Rate No Result Required. Vent Mode No Result Required. Vent Rate No Result Required. Mechanical Rate No Result Required. Pressure Support Vent No Result Required. Sodium 140 Potassium 3.2 L Chloride 109 H Carbon Dioxide 23 Anion Gap 8 BUN 24 H Creatinine 1.5 H Creat Clearance w eGFR 34.85 Random Glucose 162 H Calcium 8.5 Magnesium 1.9 Total Bilirubin 0.4 D AST 23 ALT 17 Alkaline Phosphatase 134 H Creatine Kinase 394 H Troponin I 5.27 H* Total Protein 7.9 Albumin 3.6 10/31/17 16:56 RBC 4.63 MCV 80.4 MCHC 32.8 RDW 17.1 H MPV 9.3 Neutrophils % 76.2 D Lymphocytes % 17.5 D Monocytes % 3.8 Eosinophils % 1.8 Basophils % 0.7 - Medications Given in the ED: ED Medications Discontinued Medications Generic Name Dose Route Start Last Admin Trade Name Freq PRN Reason Stop Dose Admin Albuterol/Ipratropium 1 amp 10/31/17 16:30 10/31/17 17:14 Duoneb - NEB 10/31/17 16:31 1 amp ONCE ONE Administration Aspirin 324 mg 10/31/17 18:19 10/31/17 18:32 Asa - PO 10/31/17 18:20 324 mg ONCE ONE Administration Furosemide 40 mg 10/31/17 18:18 10/31/17 18:32 Lasix Injection - IVPUSH 10/31/17 18:19 40 mg ONCE ONE Administration Methylprednisolone Sodium Succinate 125 mg 10/31/17 16:30 10/31/17 17:14 Solu-Medrol - IVPB 10/31/17 16:31 125 mg ONCE ONE Administration Nitroglycerin 0.4 mg 10/31/17 18:18 10/31/17 18:32 Nitrostat - SL 10/31/17 18:19 0.4 mg ONCE ONE Administration Potassium Chloride 40 meq 10/31/17 18:21 10/31/17 18:32 K-Dur - PO 10/31/17 18:22 40 meq ONCE ONE Administration <Krissy Garcia - Last Filed: 10/31/17 18:45> - LABORATORY CBC & Chemistry Diagram: 10/31/17 16:56 10/31/17 16:56 - RADIOLOGY Radiograph Interpretation: 10/31/17 18:42 Chest x-ray as reviewed by Dr. Mitchell reports right pneumothorax that appears to be localized to the right upper chest with compressive atelectasis of the right mid and lower lung. It measures approximately 6 cm in craniocaudal length. There is also subsegmental atelectasis in the left upper lung base. 10/31/17 20:17 Chest X-ray as reviewed by Dr. Mitchell reports interval insertion of a right pigtail catheter/chest tube with its tip projecting over the right lung base, medially. There is interval worsening consolidation/atelectasis in the right lung base. Previously visualized right upper chest pneumothorax has significantly decreased in size with now only a questionable residual apical pneumothorax present <Guillermina Gregg - Last Filed: 10/31/17 20:36> - LABORATORY CBC & Chemistry Diagram: 10/31/17 16:56 10/31/17 16:56 <Ct Ang - Last Filed: 10/31/17 20:54> Medical Decision Making - Medical Decision Making 10/31/17 18:[address] Robledo of CT surgery at [phone]. Requesting STAT callback. Awaiting callback. <Krissy Garcia - Last Filed: 10/31/17 18:45> - Critical Care Time Total Critical Care Time (minutes): 60 Critical Care Statement: The care of this patient involved high complexity decision making to prevent further life threatening deterioration of the patient 's condition and/or to evaluate & treat vital organ system(s) failure or risk of failure. - Medical Decision Making 10/31/17 18:22 Microblog sent to [facility]. 10/31/17 20:14 Phone call placed to ICU. 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 10/31/17 20:[address] Martinez, case discussed. Phone call placed to biodiesel process control technician cardiology. Awaiting call back . <Guillermina Gregg - Last Filed: 10/31/17 20:36> - Critical Care Time Total Critical Care Time (minutes): 60 Critical Care Statement: The care of this patient involved high complexity decision making to prevent further life threatening deterioration of the patient 's condition and/or to evaluate & treat vital organ system(s) failure or risk of failure. - Medical Decision Making 10/31/17 18:22 a/p: 67yo female with hx of DM, HTN, schizophrenia with acute onset sob x 1 hour -rhonchi on exam -per records no hx of CHF -pt wheezing upon arrival -hypoxic to 83% RA -will obtain labs, ekg, cxr, nebs -will send trop, bnp -no edema in the legs -will monitor and reassess 10/31/17 18:24 trop elevated to 5.27 will give asa pleural effusion on cxr - will give lasix, nitro -will place on bipap for resp distress call placed to cardiology - dr. vargas -microblog sent to [employer] - case discussed with Dr. Santos from [facility] 10/31/17 18:39 case discussed with cardiology who will see the patient in consult 10/31/17 18:48 called by radiology - large ptx on cxr call placed to CT surgery chest tube kit at the bedside 10/31/17 20:[address] surgery - recommends pigtail catheter will place 8F 10/31/17 20:[address] Martinez who accepts pt to icu case discussed with Dr. Hilliard who accepts pt to service pt feeling better with breathing after placing chest tube xray reviewed with radiology Dr. Robledo from CT surgery updated on results will repeat labs pt will be admitted to the ICU <Ct Ang - Last Filed: 10/31/17 20:54> *DC/Admit/Observation/Transfer - Attestations Scribe Attestion: 10/31/17 18:46 Documentation prepared by Krissy Garcia, acting as medical library assistant for Ct Ang DO. <Krissy Garcia - Last Filed: 10/31/17 18:45> - Attestations Scribe Attestion: 10/31/17 16:29 Documentation prepared by Guillermina Gregg, acting as medical library assistant for Ct Ang DO. <Guillermina Gregg - Last Filed: 10/31/17 20:36> - Discharge Dispostion Decision to Admit order: Yes - Attestations Physician Attestion: 10/31/17 18:50 I, Dr. Ct Ang, DO, attest that this document has been prepared under my direction and personally reviewed by me in its entirety. I further attest, that it accurately reflects all work, treatment, procedures and medical decision -making performed by me. <Ct Ang - Last Filed: 10/31/17 20:54> Diagnosis at time of Disposition: Pneumothorax, Hypoxemia, NSTEMI (non-ST elevated myocardial infarction) - Discharge Dispostion Condition at time of disposition: Critical
[2017-10-31] MEDS ORDERED: methylPREDNISolone NA SUCC 125 MG/2 ML VIAL IVPB ONE (16:30)
[2017-10-31] MEDS ORDERED: ALBUTEROL SO4 2.5/IPRATROPIUM 0.5 INH SOL 3 ML VIAL.NEB. NEB ONE ×2 (16:30→17:03)
[2017-10-31] MEDS ORDERED: methylPREDNISolone NA SUCC 125 MG/2 ML VIAL ONE (17:03)
[2017-10-31 17:05] LABS: BASO % 0.7 % (0-2.0); EOS % 1.8 % (0-4.5); HEMATOCRIT 37.3 % (32.4-45.2); HEMOGLOBIN 12.2 GM/dL (10.7-15.3); LYMPH % 17.5 % (8-40); MCH 26.3 pg (25.7-33.7); MCHC 32.8 g/dl (32.0-36.0); MEAN CELL VOLUME 80.4 fl (80-96); MEAN PLT VOLUME 9.3 fl (7.5-11.1); MONO % 3.8 % (3.8-10.2); NEUT % 76.2 % (42.8-82.8); PLATELET COUNT 207 K/MM3 (134-434); RBC 4.63 M/mm3 (3.60-5.2); RDW 17.1 % (11.6-15.6); WHITE BLOOD COUNT 6.3 K/mm3 (4.0-10.0)
[2017-10-31 17:26] LABS: INR 2.01 (0.82-1.09); PROTHROMBIN TIME (PATIENT) 22.7 SEC (9.7-13.0)
[2017-10-31 17:29] LABS: ACTIVATED PTT 40.9 SECONDS (26.9-34.4)
[2017-10-31 17:47] LABS: ALBUMIN 3.6 g/dl (3.4-5.0); ANION GAP 8 (8-16); BILIRUBIN,TOTAL 0.4 mg/dL (0.2-1.0); BLOOD UREA NITROGEN 24 mg/dL (7-18); CALCIUM 8.5 mg/dL (8.5-10.1); CHLORIDE 109 mmol/L (98-107); CO2 23 mmol/L (21-32); CREATININE 1.5 mg/dL (0.55-1.02); GLUCOSE,RANDOM 162 mg/dL (74-106); MAGNESIUM 1.9 mg/dL (1.8-2.4); POTASSIUM 3.2 mmol/L (3.5-5.1); SGOT/AST 23 U/L (15-37); SGPT/ALT 17 U/L (12-78); SODIUM 140 mmol/L (136-145); TOT PROT 7.9 g/dl (6.4-8.2)
[2017-10-31 18:01] LABS: ALK PHOS 134 U/L (45-117)
[2017-10-31] MEDS ORDERED: NITROGLYCERIN SUBLINGUAL 1/150 0.4 MG TAB SL ONE (18:18)
[2017-10-31] MEDS ORDERED: FUROSEMIDE 40 MG/4 ML INJECTABLE VIAL IVPUSH ONE (18:18)
[2017-10-31] MEDS ORDERED: ASPIRIN 81 MG CHEWABLE TABLETS PO ONE (18:19)
[2017-10-31] MEDS ORDERED: NITROGLYCERIN SUBLINGUAL 1/150 0.4 MG TAB ONE (18:20)
[2017-10-31] MEDS ORDERED: FUROSEMIDE 40 MG/4 ML INJECTABLE VIAL ONE (18:20)
[2017-10-31] MEDS ORDERED: POTASSIUM CHLORIDE TABS 20 MEQ TABLET.ER (FP) PO ONE ×2 (18:21→18:23)
[2017-10-31] MEDS ORDERED: ASPIRIN 81 MG CHEWABLE TABLETS ONE (18:23)
[2017-10-31 18:38] LABS: ARTERIAL BLD GAS O2 SATURATION 81.3 % (90-98.9); ARTERIAL BLOOD GAS BASE EXCESS -1.5 meq/l (-2-2); ARTERIAL BLOOD GAS PCO2 45.2 mmHg (35-45); ARTERIAL BLOOD GAS pH 7.34 (7.35-7.45)
[2017-10-31 18:39] LABS: ALLENS TEST POSITIVE; CARBOXYHEMOGLOBIN 2.3 gm% (0.5-2.0)
[2017-10-31 18:40] LABS: ARTERIAL BLOOD GAS PO2 49.7 mmHg (80-100)
[2017-10-31] MEDS ORDERED: LIDOCAINE HCL 1%, 10 MG/ML (20ML VIAL) ONE (19:08)
[2017-10-31] MEDS ORDERED: morphine SULFATE 4 MG/ML VIAL ONE (19:37)
--- NOTE | 2017-10-31 20:11 | PDOC ---
*Physical Exam - Vital Signs Last Vital Signs Temp Pulse Resp BP Pulse Ox 97.3 F L 98 H 28 H 196/98 91 L 10/31/17 15:35 10/31/17 19:00 10/31/17 19:00 10/31/17 19:00 10/31/17 19:00 ED Treatment Course - LABORATORY CBC & Chemistry Diagram: 10/31/17 16:56 10/31/17 16:56 - ADDITIONAL ORDERS Additional order review: Laboratory Results 10/31/17 10/31/17 10/31/17 18:01 16:56 16:56 PT with INR 22.70 H INR 2.01 H D PTT (Actin FS) 40.9 H D Anticoagulation Therapy No Result Required. Puncture Site No Result Required. ABG pH 7.34 L ABG pCO2 at Pt Temp 45.2 H ABG pO2 at Pt Temp 49.7 L* ABG HCO3 23.8 ABG O2 Sat (Measured) 81.3 L ABG O2 Content 13.9 L ABG Base Excess -1.5 Sammy Test Positive Carboxyhemoglobin 2.3 H Methemoglobin 1.6 H O2 Delivery Device No Result Required. Oxygen Flow Rate No Result Required. Vent Mode No Result Required. Vent Rate No Result Required. Mechanical Rate No Result Required. Pressure Support Vent No Result Required. Sodium Potassium Chloride Carbon Dioxide Anion Gap BUN Creatinine Creat Clearance w eGFR Random Glucose Lactic Acid 0.8 Calcium Magnesium Total Bilirubin AST ALT Alkaline Phosphatase Creatine Kinase Troponin I Total Protein Albumin 10/31/17 16:56 PT with INR INR PTT (Actin FS) Anticoagulation Therapy Puncture Site ABG pH ABG pCO2 at Pt Temp ABG pO2 at Pt Temp ABG HCO3 ABG O2 Sat (Measured) ABG O2 Content ABG Base Excess Sammy Test Carboxyhemoglobin Methemoglobin O2 Delivery Device Oxygen Flow Rate Vent Mode Vent Rate Mechanical Rate Pressure Support Vent Sodium 140 Potassium 3.2 L Chloride 109 H Carbon Dioxide 23 Anion Gap 8 BUN 24 H Creatinine 1.5 H Creat Clearance w eGFR 34.85 Random Glucose 162 H Lactic Acid Calcium 8.5 Magnesium 1.9 Total Bilirubin 0.4 D AST 23 ALT 17 Alkaline Phosphatase 134 H Creatine Kinase 394 H Troponin I 5.27 H* Total Protein 7.9 Albumin 3.6 10/31/17 16:56 RBC 4.63 MCV 80.4 MCHC 32.8 RDW 17.1 H MPV 9.3 Neutrophils % 76.2 D Lymphocytes % 17.5 D Monocytes % 3.8 Eosinophils % 1.8 Basophils % 0.7 - Medications Given in the ED: ED Medications Discontinued Medications Generic Name Dose Route Start Last Admin Trade Name Britney PRN Reason Stop Dose Admin Albuterol/Ipratropium 1 amp 10/31/17 16:30 10/31/17 17:14 Duoneb - NEB 10/31/17 16:31 1 amp ONCE ONE Administration Aspirin 324 mg 10/31/17 18:19 10/31/17 18:32 Asa - PO 10/31/17 18:20 324 mg ONCE ONE Administration Furosemide 40 mg 10/31/17 18:18 10/31/17 18:32 Lasix Injection - IVPUSH 10/31/17 18:19 40 mg ONCE ONE Administration Methylprednisolone Sodium Succinate 125 mg 10/31/17 16:30 10/31/17 17:14 Solu-Medrol - IVPB 10/31/17 16:31 125 mg ONCE ONE Administration Nitroglycerin 0.4 mg 10/31/17 18:18 10/31/17 18:32 Nitrostat - SL 10/31/17 18:19 0.4 mg ONCE ONE Administration Potassium Chloride 40 meq 10/31/17 18:21 10/31/17 18:32 K-Dur - PO 10/31/17 18:22 40 meq ONCE ONE Administration Medical Decision Making - Medical Decision Making 10/31/17 20:08 I performed a pigtail chest tube on the patient using sterile technique. Tube connected to pleura-vac. Bleeding was noted when incision was made but controlled with pressure and sutures. Pt tolerated procedure but required extra pain medication after finishing. CXR shows tube in R base. Attending discussed with radiology and IR will correct in morning. *DC/Admit/Observation/Transfer Diagnosis at time of Disposition: Pneumothorax, Hypoxemia, NSTEMI (non-ST elevated myocardial infarction) - Discharge Dispostion Condition at time of disposition: Critical - Referrals - Patient Instructions - Post Discharge Activity Procedures - Chest Tube Right Mid Axillary Line 4th ICS Indication: Pneumothorax Anesthesia: 2% Lidocaine Sterile Draping: Yes Sterile Technique: Yes [place] [employer] [place]: Yes Suction: Yes Curved Clamp: Yes Tube Sutured to Skin: Yes Complications: No Post Procedure CXR: Yes (Tube in R base - IR will fix.)
[2017-10-31 20:48] LABS: BASO % 0.4 % (0-2.0); EOS % 0.1 % (0-4.5); HEMATOCRIT 39.7 % (32.4-45.2); LYMPH % 7.3 % (8-40); MCH 26.6 pg (25.7-33.7); MCHC 32.7 g/dl (32.0-36.0); MEAN CELL VOLUME 81.4 fl (80-96); MEAN PLT VOLUME 9.1 fl (7.5-11.1); MONO % 0.7 % (3.8-10.2); NEUT % 91.5 % (42.8-82.8); PLATELET COUNT 214 K/MM3 (134-434); RBC 4.88 M/mm3 (3.60-5.2); RDW 17.2 % (11.6-15.6); WHITE BLOOD COUNT 6.3 K/mm3 (4.0-10.0)
--- NOTE | 2017-10-31 20:50 | HP ---
CHIEF COMPLAINT: SOB PCP: Dr. Galvin HISTORY OF PRESENT ILLNESS: 67 yr old woman with HTN, IDDM, Schizophrenia, everyday smoker BIBEMS from [facility] (correction resident) for shortness of breath since this morning. Says she was walking from her bed to the bathroom when she started to have trouble breathing, her roommate called for help and 911 was called. Denies chest pain, dizziness, lightheadedness, vomiting, abdominal pain, headache, syncope. She fell on 10/19/2017 on her right side and was seen in [facility]. Patient is a poor historian. additional medical history obtained from chart review. ER course was notable for: (1) chest tube placement (2) (3) Recent Travel: none PAST MEDICAL HISTORY: IDDM, HTN, CAD, seizures, and schizophrenia PAST SURGICAL HISTORY: Cardiac catheterization Social History: Smoking: Smoking since she was 20 years old. Now smokes 1 pack per five days Alcohol: denies Drugs: denies Family History: [place] Allergies No Known Allergies Allergy (Verified 10/31/17 15:42) HOME MEDICATIONS: Home Medications Medication Instructions Recorded Amlodipine Besylate [Norvasc -] 5 mg PO DAILY 01/28/14 Labetalol HCl [Normodyne -] 400 mg PO Q12H 01/28/14 Levetiracetam [Levetiracetam ER] 500 mg PO BID 01/28/14 Losartan Potassium 50 mg PO DAILY 01/28/14 Acetaminophen [Mapap] 650 mg PO BID 07/16/16 Insulin Lispro [Humalog] 4 unit SQ TID 07/16/16 Mirtazapine [Remeron -] 15 mg PO HS 07/16/16 Pantoprazole Sodium 40 mg PO DAILY 07/16/16 hydrALAZINE HCL [Apresoline -] 25 mg PO TID 07/16/16 Rivaroxaban [Xarelto -] 20 mg PO DAILY 07/17/16 REVIEW OF SYSTEMS CONSTITUTIONAL: Absent: fever, chills, diaphoresis, generalized weakness, malaise, loss of appetite, weight change HEENT: Absent: rhinorrhea, nasal congestion, throat pain, throat swelling, difficulty swallowing, mouth swelling, CARDIOVASCULAR: Absent: chest pain, syncope, palpitations, irregular heart rate, lightheadedness , peripheral edema RESPIRATORY: Present: coug - chronic, shortness of breath, Absent: dyspnea with exertion, orthopnea, wheezing, stridor, hemoptysis GASTROINTESTINAL: Absent: abdominal pain, abdominal distension, nausea, vomiting, diarrhea, constipation GENITOURINARY: Absent: dysuria, frequency, urgency, hesitancy, hematuria, MUSCULOSKELETAL: Absent: myalgia, arthralgia, joint swelling, back pain, neck pain SKIN: Absent: rash, itching, pallor PHYSICAL EXAMINATION Vital Signs - 24 hr 10/31/17 10/31/17 10/31/17 15:35 16:00 17:45 Temperature 97.3 F L Pulse Rate 87 86 Pulse Rate [ 86 Apical] Respiratory 28 H 32 H Rate Blood Pressure 172/84 Blood Pressure 176/109 [Right Arm] O2 Sat by Pulse 88 L 92 L 100 Oximetry (%) 10/31/17 10/31/17 10/31/17 18:00 18:30 19:00 Temperature Pulse Rate Pulse Rate [ 95 H 97 H 98 H Apical] Respiratory 32 H 30 H 28 H Rate Blood Pressure Blood Pressure 182/152 224/98 196/98 [Right Arm] O2 Sat by Pulse 93 L 97 91 L Oximetry (%) GENERAL: Awake, alert, and oriented to person, place, date, situation, in no acute distress. HEAD: Normal with no signs of trauma. EYES: Pupils equal, round and reactive to light, extraocular movements intact, sclera anicteric, conjunctiva clear. No lid lag. EARS, NOSE, THROAT: oropharynx clear without exudates. dry mucous membranes. NECK: Normal range of motion, supple without lymphadenopathy, JVD, or masses. LUNGS: anterior auscultation, Breath sounds equal, clear to auscultation bilaterally. decr on right apex. quiet at bases. HEART: Regular rate and rhythm, normal S1 and S2 CHEST: right lateral chest with pigtail in place with CDI dressing set to wall suction ABDOMEN: Soft, nontender, not distended, normoactive bowel sounds, no guarding, no rebound, no masses UPPER EXTREMITIES: 2+ radial pulses, warm, well-perfused. No cyanosis. No clubbing. No peripheral edema. LOWER EXTREMITIES: 2+ dp pulses, warm, well-perfused. No calf tenderness. No peripheral edema. NEUROLOGICAL: Cranial nerves II-XII intact. Normal speech. Laboratory Results - last 24 hr 10/31/17 10/31/17 10/31/17 16:56 16:56 16:56 WBC 6.3 RBC 4.63 Hgb 12.2 Hct 37.3 MCV 80.4 MCH 26.3 MCHC 32.8 RDW 17.1 H Plt Count 207 MPV 9.3 Neutrophils % 76.2 D Lymphocytes % 17.5 D Monocytes % 3.8 Eosinophils % 1.8 Basophils % 0.7 PT with INR INR PTT (Actin FS) Anticoagulation Therapy Puncture Site ABG pH ABG pCO2 at Pt Temp ABG pO2 at Pt Temp ABG HCO3 ABG O2 Sat (Measured) ABG O2 Content ABG Base Excess Sammy Test Carboxyhemoglobin Methemoglobin O2 Delivery Device Oxygen Flow Rate Vent Mode Vent Rate Mechanical Rate Pressure Support Vent Sodium 140 Potassium 3.2 L Chloride 109 H Carbon Dioxide 23 Anion Gap 8 BUN 24 H Creatinine 1.5 H Creat Clearance w eGFR 34.85 Random Glucose 162 H Lactic Acid 0.8 Calcium 8.5 Magnesium 1.9 Total Bilirubin 0.4 D AST 23 ALT 17 Alkaline Phosphatase 134 H Creatine Kinase 394 H Creatine Kinase Index 2.2 CK-MB (CK-2) 8.694 H Troponin I 5.27 H* B-Natriuretic Peptide Total Protein 7.9 Albumin 3.6 10/31/17 10/31/17 10/31/17 16:56 16:56 18:01 WBC RBC Hgb Hct MCV MCH MCHC RDW Plt Count MPV Neutrophils % Lymphocytes % Monocytes % Eosinophils % Basophils % PT with INR 22.70 H INR 2.01 H D PTT (Actin FS) 40.9 H D Anticoagulation Therapy No Result Required. Puncture Site No Result Required. ABG pH 7.34 L ABG pCO2 at Pt Temp 45.2 H ABG pO2 at Pt Temp 49.7 L* ABG HCO3 23.8 ABG O2 Sat (Measured) 81.3 L ABG O2 Content 13.9 L ABG Base Excess -1.5 Sammy Test Positive Carboxyhemoglobin 2.3 H Methemoglobin 1.6 H O2 Delivery Device No Result Required. Oxygen Flow Rate No Result Required. Vent Mode No Result Required. Vent Rate No Result Required. Mechanical Rate No Result Required. Pressure Support Vent No Result Required. Sodium Potassium Chloride Carbon Dioxide Anion Gap BUN Creatinine Creat Clearance w eGFR Random Glucose Lactic Acid Calcium Magnesium Total Bilirubin AST ALT Alkaline Phosphatase Creatine Kinase Creatine Kinase Index CK-MB (CK-2) Troponin I B-Natriuretic Peptide 429.77 H Total Protein Albumin ASSESSMENT/PLAN: 67 yr old woman with pmhx of HTN, current every day smoker presents with spontanous right sided penumothorax likely due to mechanical fall few days ago s /p pigtail insertion admitted to ICU for further managmenet. #Pneumthorax - pigtail inserted set to wall suction, CT surgery consulted by ED, will see pt in the AM - serial cxy - pulm consult - supplemental oxygen to maintain o2>88% - keep her flat, NPO while flat to avoid aspiration -if worsening clinical status, will consider intubation # Elevated troponin likely falsely elevated due to pneumothorax/hypoxia, less likely to be ACS. No ischemic ekg changes, pt denies chest pain -Dr. Meehan consulted, she was given loading dose of ASA in ED -trend troponin, echo to eval heart fxn -if worsening clinical status, consider intubation - as per chart review, in 2017 pt had a hx of DVT's and was being treated with xarelto, but it is unclear why she was continued on it or how long she needs to be on the xarelto #continue home meds losartan, labetalol, norvasc, hydralazine for HTN as tolerated #continue remeron for schizophrenia #IDDM - bgm ACHS, NISS, get A1c in the AM #smoking cessation, pt declined nicotine patch, counseling offered #DVT ppx -can start xarelto or heparin if no further decr in h/h and no indication of active bleeding from chest tube #GOC: pt has three children, two sons and a daughter. son christo is who she told me would like to make decisions for her if she is unable to do so herself, he is in [place]. Her daughter is in [place], the 2nd son is in [place] but appears that she has not seen him in a long time. denies being . Visit type - Emergency Visit Emergency Visit: Yes ED Registration Date: 10/31/17 Care time: The patient presented to the Emergency Department on the above date and was hospitalized for further evaluation of their emergent condition. - New Patient This patient is new to me today: Yes Date on this admission: 10/31/17 - Critical Care Critical Care patient: Yes Total Critical Care Time (in minutes): 38 Critical Care Statement: The care of this patient involved high complexity decision making to prevent further life threatening deterioration of the patient 's condition and/or to evaluate & treat vital organ system(s) failure or risk of failure. Hospitalist Screening - Colonoscopy Questionnaire Colonoscopy Questionnaire: Colonoscopy Questionnaire - Patient: 50 - 75 years old and never had a screening colonoscopy: Unknown History of colon or rectal polyps, or CA: Unknown History of IBD, Crohn's disease or UC: Unknown History of abdominal radiation therapy as a child: Unknown - Relative: 1 with colon or rectal CA, or polyps at age 60 or younger: Unknown Colon or rectal CA diagnosed at age 45 or younger: Unknown Multiple relatives with colon or rectal CA: Unknown - Outcome: Screening Result: Negative Screen
[2017-10-31] MEDS ORDERED: morphine CARPU-JECT 4 MG/1 ML DISP.SYRIN IVPUSH ONE (20:54)
[2017-10-31] MEDS ORDERED: CHLORHEXIDINE GLUCONATE 4% CLEANSER FOR DECOLONIZATION TP SCH (22:00)
--- NOTE | 2017-10-31 22:41 | CONSULT ---
Consult Consult Specialty:: Pulm/CCM Reason for Consultation:: Pneumothorax - History of Present Illness Chief Complaint: Hypoxia/SOB History of Present Illness: 67yow with PMHx HTN, IDDM, Schizophrenia, DVT on Xarelto, smoker who was BIBEMS from [facility] for SOB since morning. She reports a fall in her room on 10/19 where she was taken to [facility] and told she had a fractured Right rib. She was given morphine for pain and transported back to [place]. She was in her usual state of health until this am when she had SOB. In the ED T 97.3, HR 87, RR 28, BP 172/84, O2 sat 88% on room air. labs notable for PaO2 49, Trop 5.4. CXR s/f Rt pneumothorax. Rt pigtail to pleuravac placed. Pleural fluid blood tinged, no air leak. She denied chest pain, dizziness, lightheadedness. O2 weaned to venti-mask. She was transferred to ICU for further management. In ICU rec'd lethargic and slow to respond but oriented x3. Comfortable on venti mask 28% RR 15, HR 71, BP 129/75. Pigtail to pleurevac intact and draining small amt of serosang fluid. No air leak. - History Source History Provided By: Patient, Medical Record - Past Medical History Cardio/Vascular: Yes: HTN Heme/Onc: Yes: Other (DVT) Psych: Yes: Schizophrenia Endocrine: Yes: Diabetes Mellitus - Alcohol/Substance Use Hx Alcohol Use: No - Smoking History Smoking history: Current some day smoker Have you smoked in the past 12 months: Yes Aproximately how many cigarettes per day: 5 Home Medications - Allergies Allergies/Adverse Reactions: Allergies Allergy/AdvReac Type Severity Reaction Status Date / Time No Known Allergies Allergy Verified 10/31/17 15:42 - Home Medications Home Medications: Ambulatory Orders Amlodipine Besylate [Norvasc -] 5 mg PO DAILY 01/28/14 Labetalol HCl [Normodyne -] 400 mg PO Q12H 01/28/14 Levetiracetam [Levetiracetam ER] 500 mg PO BID 01/28/14 Losartan Potassium 50 mg PO DAILY 01/28/14 Acetaminophen [Mapap] 650 mg PO BID 07/16/16 Insulin Lispro [Humalog] 4 unit SQ TID 07/16/16 Mirtazapine [Remeron -] 15 mg PO HS 07/16/16 Pantoprazole Sodium 40 mg PO DAILY 07/16/16 hydrALAZINE HCL [Apresoline -] 25 mg PO TID 07/16/16 Rivaroxaban [Xarelto -] 20 mg PO DAILY 07/17/16 Family Disease History - Family Disease History Family History: Unable to Obtain Review of Systems - Review of Systems Respiratory: reports: SOB Physical Exam Vital Signs: Vital Signs Temperature 97.3 F L 10/31/17 15:35 Pulse Rate 91 H 10/31/17 21:04 Respiratory Rate 20 10/31/17 21:04 Blood Pressure 140/81 10/31/17 21:04 O2 Sat by Pulse Oximetry (%) 93 L 10/31/17 21:04 Intake & Output 10/29/17 10/30/17 10/31/17 11/01/17 23:59 23:59 23:59 23:59 Output Total 180 Balance -180 Weight 67.313 kg Constitutional: Yes: Well Nourished, No Distress, Calm Eyes: Yes: WNL, PERRL HENT: Yes: Atraumatic, Normocephalic Neck: Yes: Trachea Midline Cardiovascular: Yes: Regular Rate and Rhythm, S1, S2 Respiratory: Yes: CTA Bilaterally, Diminished (rt base) Gastrointestinal: Yes: Normal Bowel Sounds, Soft Renal/: Yes: Meyer Present Extremities: Yes: WNL Edema: No Peripheral Pulses WNL: Yes Neurological: Yes: Lethargy Psychiatric: Yes: Oriented, Other (Flat affect) Labs: CBC, BMP 10/31/17 20:28 10/31/17 16:56 CBC,CMP WBC 6.3 K/mm3 (4.0-10.0) 10/31/17 20:28 RBC 4.88 M/mm3 (3.60-5.2) 10/31/17 20:28 Hgb 13.0 GM/dL (10.7-15.3) 10/31/17 20:28 Hct 39.7 % (32.4-45.2) 10/31/17 20:28 MCV 81.4 fl (80-96) 10/31/17 20:28 MCH 26.6 pg (25.7-33.7) 10/31/17 20:28 MCHC 32.7 g/dl (32.0-36.0) 10/31/17 20:28 RDW 17.2 % (11.6-15.6) H 10/31/17 20:28 Plt Count 214 K/MM3 (134-434) 10/31/17 20:28 MPV 9.1 fl (7.5-11.1) 10/31/17 20:28 Neutrophils % 91.5 % (42.8-82.8) H D 10/31/17 20:28 Lymphocytes % 7.3 % (8-40) L D 10/31/17 20:28 Monocytes % 0.7 % (3.8-10.2) L D 10/31/17 20:28 Eosinophils % 0.1 % (0-4.5) D 10/31/17 20:28 Basophils % 0.4 % (0-2.0) 10/31/17 20:28 Sodium 140 mmol/L (136-145) 10/31/17 16:56 Potassium 3.2 mmol/L (3.5-5.1) L 10/31/17 16:56 Chloride 109 mmol/L (98-107) H 10/31/17 16:56 Carbon Dioxide 23 mmol/L (21-32) 10/31/17 16:56 Anion Gap 8 (8-16) 10/31/17 16:56 BUN 24 mg/dL (7-18) H 10/31/17 16:56 Creatinine 1.5 mg/dL (0.55-1.02) H 10/31/17 16:56 Creat Clearance w eGFR 34.85 (>60) 10/31/17 16:56 POC Glucometer 153.23346 UNITS (80-120) 10/31/17 23:38 Random Glucose 162 mg/dL (74-106) H 10/31/17 16:56 Lactic Acid 1.5 mmol/L (0.0-2.0) 10/31/17 20:28 Calcium 8.5 mg/dL (8.5-10.1) 10/31/17 16:56 Magnesium 1.9 mg/dL (1.8-2.4) 10/31/17 16:56 Total Bilirubin 0.4 mg/dL (0.2-1.0) D 10/31/17 16:56 AST 23 U/L (15-37) 10/31/17 16:56 ALT 17 U/L (12-78) 10/31/17 16:56 Alkaline Phosphatase 134 U/L (45-117) H 10/31/17 16:56 Creatine Kinase 454 IU/L (26-192) H 10/31/17 20:28 Creatine Kinase Index 2.8 % (0.0-5.0) 10/31/17 20:28 CK-MB (CK-2) 12.875 ng/mL (0.5-3.6) H 10/31/17 20:28 Troponin I 5.25 ng/ml (0.00-0.05) H* 10/31/17 20:28 B-Natriuretic Peptide 429.77 pg/ml (5-125) H 10/31/17 16:56 Total Protein 7.9 g/dl (6.4-8.2) 10/31/17 16:56 Albumin 3.6 g/dl (3.4-5.0) 10/31/17 16:56 Current Medications Amlodipine Besylate (Norvasc -) 5 mg PO DAILY [facility] Chlorhexidine Gluconate (Hibiclens For Decolonization -) 1 applic TP HS [facility] Last Admin: 10/31/17 23:17 Dose: 1 applic Hydralazine HCl (Apresoline -) 25 mg PO TID LEV Labetalol HCl (Normodyne -) 400 mg PO BID [facility] Last Admin: 10/31/17 23:20 Dose: 400 mg Levetiracetam (Keppra Xr -) 500 mg PO BID [facility] Losartan Potassium (Cozaar -) 50 mg PO DAILY [facility] Mirtazapine (Remeron -) 15 mg PO HS [facility] Mupirocin (Bactroban Ointment (For Decolonization) -) 1 applic NS BID [facility] Stop: 11/05/17 21:59 Pantoprazole Sodium (Protonix -) 40 mg PO DAILY [facility] Imaging - Results Chest X-ray: Report Reviewed Problem List - Problems (1) Hypoxemia Code(s): R09.02 - HYPOXEMIA (2) NSTEMI (non-ST elevated myocardial infarction) Code(s): I21.4 - NON-ST ELEVATION (NSTEMI) MYOCARDIAL INFARCTION (3) Pneumothorax Code(s): J93.9 - PNEUMOTHORAX, UNSPECIFIED (4) Altered mental status Code(s): R41.82 - ALTERED MENTAL STATUS, UNSPECIFIED Qualifiers: Altered mental status type: somnolence Qualified Code(s): R40.0 - Somnolence (5) Contusion Code(s): T14.8 - OTHER INJURY OF UNSPECIFIED BODY REGION * DO NOT USE * Qualifiers: Encounter type: initial encounter Contusion area: knee Laterality: left Qualified Code(s): S80.02XA - Contusion of left knee, initial encounter (6) Fall Code(s): W19.XXXA - UNSPECIFIED FALL, INITIAL ENCOUNTER Qualifiers: Encounter type: initial encounter Qualified Code(s): W19.XXXA - Unspecified fall, initial encounter Assessment/Plan 67yow with Pmhx HTN, DM, Scizophrenia, DVT on Xarelto recent fall and fractured Rt rib who presented to ED with SOB found to have a Pneumothorax. Rt Pigtail was placed with resolution of PTx. Pt transferred to ICU for management. Plan: -O2 support for O2 sat>92% -Wean as terry -pigtail to pleurevac LWS drianage; monitor output for bleeding and for air leak -Incentive spirometer ; pulmonary toilet -daily CXR -NPO for now, advance diet. -Cont antihypertensives -Pain management prn -Hold anticoagulation for now. -SCDs ALEKSANDAR Rao CC time 35mins
[2017-10-31] MEDS: LABETALOL HCL 200 MG TABLET (FP) PO SCH (23:20)
[2017-11-01] MEDS: MUPIROCIN 2% TOPICAL OINTMENT FOR DECOLONIZATION NS SCH ×3 (01:00→22:01)
[2017-11-01 02:41] LABS: ARTERIAL BLD GAS O2 SATURATION 80.2 % (90-98.9); ARTERIAL BLOOD GAS BASE EXCESS -1.5 meq/l (-2-2); ARTERIAL BLOOD GAS PCO2 38.2 mmHg (35-45); ARTERIAL BLOOD GAS pH 7.39 (7.35-7.45)
[2017-11-01 02:43] LABS: ARTERIAL BLOOD GAS PO2 46.4 mmHg (80-100)
--- NOTE | 2017-11-01 02:59 | PN ---
Teaching Attending Note Name of Resident: Blayne Marroquin ATTENDING PHYSICIAN STATEMENT I saw and evaluated the patient. chart, data, imaging reviewed. I reviewed the resident's note and discussed the case with the resident. I agree with the resident's findings and plan as documented. SUBJECTIVE: 67 yr old woman with HTN, IDDM, Schizophrenia, anticoagulation for dvt, smoker BIBEMS from [facility] (longterm resident) for shortness breath since 10/31 morning. Pt fell on 10/19/2017 on her right side and was seen in [facility]. She was not complaining of any chest pain. Had some some hypoxia in ER which improved on oxygen. Found to have right sided pneumothorax, s/p pigtail insertion. OBJECTIVE: Last Vital Signs Temp Pulse Resp BP Pulse Ox 97.6 F 74 17 130/81 97 11/01/17 02:00 11/01/17 02:00 11/01/17 02:00 11/01/17 02:00 10/31/17 22:40 general- mild resp distress, aaox3 nontoxic heent -at, nc, moist oral mucosa cv -s1+ s2+ rrr chest- b/l air entry sounds, right sided pig tail catheter, draining bloody/ serosangionous fluid abdomen- soft, nt, bs+ ext - no pedal edema skin -no rashes first and second CXR reviewed by me, remarkable for right sided pneumonthorax, no midline shift of mediastinal structures, decreased in size after pigtail insertion. No obvious broken ribs seen CXR pending official read ASSESSMENT AND PLAN: #67yo woman with spontanous right sided penumothorax s/p pigtail insertion. Do not suspect tension pneumothorax. Hemodynamically stable and improved oxygenation on supplemental o2. Elevated troponin likely falsely elevated 2/2 pneumothorax, less likely to be ACS. No ischemic ekg changes. -admit to ICU -cardiothoracic evaluation -cardiology evaluation -serial cxr -supplemental oxygen -hold anticoagulants as patient has bloody fluid per chest catheter and risk of bleeding outweighs the benefit -monitor CBC -trend troponin -transthoracic echo -if worsening clinical status, will consider intubation -c/w home meds except for anticoagulation DVT ppx -heparin
[2017-11-01] MEDS: hydrALAZINE HCL 25 MG TABLET (FP) PO SCH ×3 (06:23→22:03)
[2017-11-01 06:25] LABS: BASO % 0.2 % (0-2.0); HEMATOCRIT 37.3 % (32.4-45.2); HEMOGLOBIN 12.1 GM/dL (10.7-15.3); LYMPH % 7.8 % (8-40); MCH 26.4 pg (25.7-33.7); MCHC 32.6 g/dl (32.0-36.0); MEAN CELL VOLUME 81.1 fl (80-96); MEAN PLT VOLUME 9.3 fl (7.5-11.1); MONO % 1.5 % (3.8-10.2); NEUT % 90.5 % (42.8-82.8); PLATELET COUNT 218 K/MM3 (134-434); RDW 17.2 % (11.6-15.6)
[2017-11-01 06:42] LABS: INR 1.48 (0.82-1.09); PROTHROMBIN TIME (PATIENT) 16.7 SEC (9.7-13.0)
[2017-11-01 06:44] LABS: ACTIVATED PTT 35.1 SECONDS (26.9-34.4)
[2017-11-01] MEDS: INSULIN SLIDING SCALE (NOVOLOG) 1 VIAL SQ SCH ×4 (07:02→22:19)
--- NOTE | 2017-11-01 07:05 | PN ---
Physical Exam: SUBJECTIVE: Patient seen and examined at bedside, in ICU. presented with sob to ed was found to have pneumothorax right side 6 cm , chest tube was inserted improve her breathing. and re expand the lung. pt this morning denies any sob, report slight chest pain med sternal worsen when she cough, 5/10 , local non radiated . she reports previous fall with right side ribs pain. denies any fever, chills, N/V/D/C. denies dizziness or light headedness. still npo , she feels hungry and asking for food cxr after the chest tube shows decrease in pneumothorax with slight residual in right upper lung. noted markus sang drainage. OBJECTIVE: Vital Signs Period Temp Pulse Resp BP Sys/Miller Pulse Ox Last 24 Hr 97.3 F-97.8 F 68-100 16-32 106-224/65-152 88-100 GENERAL: The patient is AAOx3 in NAD HEAD: Normal with no signs of trauma. EYES: PERRL, EOMI, sclera anicteric, conjunctiva clear. ENT: Ears normal, nares patent, oropharynx clear without exudates, moist mucous membranes. NECK: Trachea midline, supple. LUNGS: coarse breath sound in right lung base, no wheezes, no crackles, no accessory muscle use. chest tube in place in right side with serous drainage HEART: Regular rate and rhythm, S1, S2 without murmur, rub or gallop. ABDOMEN: Soft, nontender, nondistended, normoactive bowel sounds, no guarding, no rebound, EXTREMITIES: 2+ pulses, warm, well-perfused, no edema. NEUROLOGICAL: Cranial nerves II through XII grossly intact. Normal speech, gait not observed. PSYCH: Normal mood, normal affect. SKIN: Warm, dry, Laboratory Results - last 24 hr 10/31/17 10/31/17 10/31/17 16:56 16:56 16:56 WBC 6.3 RBC 4.63 Hgb 12.2 Hct 37.3 MCV 80.4 MCH 26.3 MCHC 32.8 RDW 17.1 H Plt Count 207 MPV 9.3 Neutrophils % 76.2 D Lymphocytes % 17.5 D Monocytes % 3.8 Eosinophils % 1.8 Basophils % 0.7 PT with INR INR PTT (Actin FS) Anticoagulation Therapy Puncture Site ABG pH ABG pCO2 at Pt Temp ABG pO2 at Pt Temp ABG HCO3 ABG O2 Sat (Measured) ABG O2 Content ABG Base Excess Sammy Test Carboxyhemoglobin Methemoglobin O2 Delivery Device Oxygen Flow Rate Vent Mode Vent Rate Mechanical Rate Pressure Support Vent Sodium 140 Potassium 3.2 L Chloride 109 H Carbon Dioxide 23 Anion Gap 8 BUN 24 H Creatinine 1.5 H Creat Clearance w eGFR 34.85 POC Glucometer Random Glucose 162 H Lactic Acid 0.8 Calcium 8.5 Magnesium 1.9 Total Bilirubin 0.4 D AST 23 ALT 17 Alkaline Phosphatase 134 H Creatine Kinase 394 H Creatine Kinase Index 2.2 CK-MB (CK-2) 8.694 H Troponin I 5.27 H* B-Natriuretic Peptide Total Protein 7.9 Albumin 3.6 10/31/17 10/31/17 10/31/17 16:56 16:56 18:01 WBC RBC Hgb Hct MCV MCH MCHC RDW Plt Count MPV Neutrophils % Lymphocytes % Monocytes % Eosinophils % Basophils % PT with INR 22.70 H INR 2.01 H D PTT (Actin FS) 40.9 H D Anticoagulation Therapy No Result Required. Puncture Site No Result Required. ABG pH 7.34 L ABG pCO2 at Pt Temp 45.2 H ABG pO2 at Pt Temp 49.7 L* ABG HCO3 23.8 ABG O2 Sat (Measured) 81.3 L ABG O2 Content 13.9 L ABG Base Excess -1.5 Sammy Test Positive Carboxyhemoglobin 2.3 H Methemoglobin 1.6 H O2 Delivery Device No Result Required. Oxygen Flow Rate No Result Required. Vent Mode No Result Required. Vent Rate No Result Required. Mechanical Rate No Result Required. Pressure Support Vent No Result Required. Sodium Potassium Chloride Carbon Dioxide Anion Gap BUN Creatinine Creat Clearance w eGFR POC Glucometer Random Glucose Lactic Acid Calcium Magnesium Total Bilirubin AST ALT Alkaline Phosphatase Creatine Kinase Creatine Kinase Index CK-MB (CK-2) Troponin I B-Natriuretic Peptide 429.77 H Total Protein Albumin 10/31/17 10/31/17 10/31/17 20:28 20:28 20:28 WBC 6.3 RBC 4.88 Hgb 13.0 Hct 39.7 MCV 81.4 MCH 26.6 MCHC 32.7 RDW 17.2 H Plt Count 214 MPV 9.1 Neutrophils % 91.5 H D Lymphocytes % 7.3 L D Monocytes % 0.7 L D Eosinophils % 0.1 D Basophils % 0.4 PT with INR INR PTT (Actin FS) Anticoagulation Therapy Puncture Site ABG pH ABG pCO2 at Pt Temp ABG pO2 at Pt Temp ABG HCO3 ABG O2 Sat (Measured) ABG O2 Content ABG Base Excess Sammy Test Carboxyhemoglobin Methemoglobin O2 Delivery Device Oxygen Flow Rate Vent Mode Vent Rate Mechanical Rate Pressure Support Vent Sodium Potassium Chloride Carbon Dioxide Anion Gap BUN Creatinine Creat Clearance w eGFR POC Glucometer Random Glucose Lactic Acid 1.5 Calcium Magnesium Total Bilirubin AST ALT Alkaline Phosphatase Creatine Kinase 454 H Creatine Kinase Index 2.8 CK-MB (CK-2) 12.875 H Troponin I 5.25 H* B-Natriuretic Peptide Total Protein Albumin 10/31/17 11/01/17 11/01/17 23:38 02:00 05:15 WBC 8.0 RBC 4.60 Hgb 12.1 Hct 37.3 MCV 81.1 MCH 26.4 MCHC 32.6 RDW 17.2 H Plt Count 218 MPV 9.3 Neutrophils % 90.5 H Lymphocytes % 7.8 L Monocytes % 1.5 L D Eosinophils % 0.0 D Basophils % 0.2 PT with INR INR PTT (Actin FS) Anticoagulation Therapy No Result Required. Puncture Site No Result Required. ABG pH 7.39 ABG pCO2 at Pt Temp 38.2 ABG pO2 at Pt Temp 46.4 L* ABG HCO3 22.6 ABG O2 Sat (Measured) 80.2 L ABG O2 Content 14.5 L ABG Base Excess -1.5 Sammy Test No Result Required. Carboxyhemoglobin Methemoglobin O2 Delivery Device No Result Required. Oxygen Flow Rate No Result Required. Vent Mode No Result Required. Vent Rate No Result Required. Mechanical Rate No Result Required. Pressure Support Vent No Result Required. Sodium Potassium Chloride Carbon Dioxide Anion Gap BUN Creatinine Creat Clearance w eGFR POC Glucometer [id number] Random Glucose Lactic Acid Calcium Magnesium Total Bilirubin AST ALT Alkaline Phosphatase Creatine Kinase Creatine Kinase Index CK-MB (CK-2) Troponin I B-Natriuretic Peptide Total Protein Albumin 11/01/17 05:15 WBC RBC Hgb Hct MCV MCH MCHC RDW Plt Count MPV Neutrophils % Lymphocytes % Monocytes % Eosinophils % Basophils % PT with INR 16.70 H INR 1.48 H PTT (Actin FS) 35.1 H Anticoagulation Therapy Puncture Site ABG pH ABG pCO2 at Pt Temp ABG pO2 at Pt Temp ABG HCO3 ABG O2 Sat (Measured) ABG O2 Content ABG Base Excess Sammy Test Carboxyhemoglobin Methemoglobin O2 Delivery Device Oxygen Flow Rate Vent Mode Vent Rate Mechanical Rate Pressure Support Vent Sodium Potassium Chloride Carbon Dioxide Anion Gap BUN Creatinine Creat Clearance w eGFR POC Glucometer Random Glucose Lactic Acid Calcium Magnesium Total Bilirubin AST ALT Alkaline Phosphatase Creatine Kinase Creatine Kinase Index CK-MB (CK-2) Troponin I B-Natriuretic Peptide Total Protein Albumin Active Medications Generic Name Dose Route Start Last Admin Trade Name Freq PRN Reason Stop Dose Admin Amlodipine Besylate 5 mg 11/01/17 10:00 Norvasc - PO DAILY [facility] Chlorhexidine Gluconate 1 applic 10/31/17 22:00 10/31/17 23:17 Hibiclens For Decolonization - TP 1 applic HS LEV Administration Hydralazine HCl 25 mg 11/01/17 06:00 11/01/17 06:23 Apresoline - PO Not Given TID [facility] Insulin Aspart 1 vial 11/01/17 07:00 11/01/17 07:02 Novolog Vial Sliding Scale - SQ Not Given ACHS [facility] Protocol Labetalol HCl 400 mg 10/31/17 22:30 10/31/17 23:20 Normodyne - PO 400 mg BID LEV Administration Levetiracetam 500 mg 11/01/17 10:00 Keppra Xr - PO BID [facility] Losartan Potassium 50 mg 11/01/17 10:00 Cozaar - PO DAILY [facility] Mirtazapine 15 mg 11/01/17 22:00 Remeron - PO HS [facility] Mupirocin 1 applic 10/31/17 22:00 11/01/17 01:00 Bactroban Ointment (For Decolonization) - NS 11/05/17 21:59 1 applic BID LEV Administration Pantoprazole Sodium 40 mg 11/01/17 10:00 Protonix - PO DAILY [facility] CBC, BMP 11/01/17 05:15 11/01/17 05:15 ASSESSMENT/PLAN: 67yow with Pmhx HTN, DM, Scizophrenia, DVT on Xarelto recent fall and fractured Rt rib who presented to ED with SOB found to have a Pneumothorax. Rt Pigtail was placed with resolution of PTx. Pt transferred to ICU for management. Pulmonary: # Pneumothorax * pt presented with sob , h/o of fall 2 weeks ago with right rib fx * cxr shows 6 cm right lung pneumothorax * chest tube placed in ED * pt denies any sob as of today, has some discofort in the tube sight . * O2 as needed to keep o2 sat > 90 % * pt is smoker and refusing nictine patch * thorasic surgery consulted : recommend keeo the tube 24 hours and then remove suction for 4 hours and repeat cxr if improved and stable she can be discharged tomorrow * follow cxr * incentive spirometry Cardiology #HTN * monitor BP * restart home meds with goal BP < 130/90 and dc meds if drop below 100/70 #ELevated troponin /NSTEMI * trop on admission 5.6 trend * hold ASA and Xarelto for now due to risk of bleeding in chest tube suction * continue BB * No chest pain was reported , no ischemic EKG changes , ECho with no wall motion abnormalities and normal LVEF * cardiology consulted recommend ASA on usp and statins * cardiac tele monitoring * transfer to tele Endo #DM * HgbA1c 6.9 * ISS * BGM * Diabetic diet H/O Fall with R rib fx * was seen at [facility] last week * pain med as needed * incentive spirometry * Psych #Schizophrenia * continue home meds H/O DVT * hole on xaralto due to risk of bleeding FEN F: NS 100 CC/hr E: monitor N: low Na , diabetic diet proph DVts L hold on xarelto for now . mechanical compression both legs scds GI: protonix 40 mg po daily Dispo * transfer to tele * possible Dc tomorrow * follow cxr total critical care time 45 min Visit type - Emergency Visit Emergency Visit: Yes ED Registration Date: 10/31/17 Care time: The patient presented to the Emergency Department on the above date and was hospitalized for further evaluation of their emergent condition. - New Patient This patient is new to me today: Yes Date on this admission: 11/01/17 - Critical Care Critical Care patient: Yes Total Critical Care Time (in minutes): 45 Critical Care Statement: The care of this patient involved high complexity decision making to prevent further life threatening deterioration of the patient 's condition and/or to evaluate & treat vital organ system(s) failure or risk of failure.
[2017-11-01 07:41] LABS: ALBUMIN 3.4 g/dl (3.4-5.0); ANION GAP 13 (8-16); BLOOD UREA NITROGEN 29 mg/dL (7-18); CALCIUM 9.4 mg/dL (8.5-10.1); CHLORIDE 106 mmol/L (98-107); CO2 25 mmol/L (21-32); CREATININE 1.7 mg/dL (0.55-1.02); GLUCOSE,RANDOM 160 mg/dL (74-106); MAGNESIUM 1.8 mg/dL (1.8-2.4); PHOSPHOROUS 4.3 mg/dL (2.5-4.9); POTASSIUM 4.1 mmol/L (3.5-5.1); SGOT/AST 21 U/L (15-37); SGPT/ALT 16 U/L (12-78); SODIUM 144 mmol/L (136-145)
[2017-11-01 07:42] LABS: ALK PHOS 125 U/L (45-117); BILIRUBIN,TOTAL 0.6 mg/dL (0.2-1.0); TOT PROT 7.4 g/dl (6.4-8.2)
--- NOTE | 2017-11-01 07:51 | PN ---
Physical Exam: SUBJECTIVE: HPI limited due to being a poor historian. Pt was brought in for respiratory distress noted by her roommate at [facility]. Pt was found to have PTX and pigtail was placed and put on suction. OBJECTIVE: Vital Signs Period Temp Pulse Resp BP Sys/Miller Pulse Ox Last 24 Hr 97.3 F-97.8 F 68-100 16-32 106-224/65-152 88-100 GENERAL: NAD, awake, alert, kyphotic and eating at bedside HEENT: NC/AT, EOMI, FIGUERAO LUNGS: Diminished breath sounds in R lung base, pigtail attached with sutures with sangrinous drainage in pleurex device. No leak observed; Canister on -20 suction HEART: RRR, S1, S2 without murmur ABDOMEN: Soft, nontender, nondistended, normoactive bowel sounds, no guarding EXTREMITIES: 2+ DP pulses, warm, no edema. Laboratory Results - last 24 hr 10/31/17 11/01/17 11/01/17 23:38 02:00 05:15 WBC 8.0 RBC 4.60 Hgb 12.1 Hct 37.3 MCV 81.1 MCH 26.4 MCHC 32.6 RDW 17.2 H Plt Count 218 MPV 9.3 Neutrophils % 90.5 H Lymphocytes % 7.8 L Monocytes % 1.5 L D Eosinophils % 0.0 D Basophils % 0.2 PT with INR INR PTT (Actin FS) Anticoagulation Therapy No Result Required. Puncture Site No Result Required. ABG pH 7.39 ABG pCO2 at Pt Temp 38.2 ABG pO2 at Pt Temp 46.4 L* ABG HCO3 22.6 ABG O2 Sat (Measured) 80.2 L ABG O2 Content 14.5 L ABG Base Excess -1.5 Sammy Test No Result Required. Carboxyhemoglobin Methemoglobin O2 Delivery Device No Result Required. Oxygen Flow Rate No Result Required. Vent Mode No Result Required. Vent Rate No Result Required. Mechanical Rate No Result Required. Pressure Support Vent No Result Required. Sodium Potassium Chloride Carbon Dioxide Anion Gap BUN Creatinine Creat Clearance w eGFR POC Glucometer [phone] Random Glucose Lactic Acid Calcium Magnesium Total Bilirubin AST ALT Alkaline Phosphatase Creatine Kinase Creatine Kinase Index CK-MB (CK-2) Troponin I B-Natriuretic Peptide Total Protein Albumin 11/01/17 05:15 WBC RBC Hgb Hct MCV MCH MCHC RDW Plt Count MPV Neutrophils % Lymphocytes % Monocytes % Eosinophils % Basophils % PT with INR 16.70 H INR 1.48 H PTT (Actin FS) 35.1 H Anticoagulation Therapy Puncture Site ABG pH ABG pCO2 at Pt Temp ABG pO2 at Pt Temp ABG HCO3 ABG O2 Sat (Measured) ABG O2 Content ABG Base Excess Sammy Test Carboxyhemoglobin Methemoglobin O2 Delivery Device Oxygen Flow Rate Vent Mode Vent Rate Mechanical Rate Pressure Support Vent Sodium Potassium Chloride Carbon Dioxide Anion Gap BUN Creatinine Creat Clearance w eGFR POC Glucometer Random Glucose Lactic Acid Calcium Magnesium Total Bilirubin AST ALT Alkaline Phosphatase Creatine Kinase Creatine Kinase Index CK-MB (CK-2) Troponin I B-Natriuretic Peptide Total Protein Albumin Active Medications Generic Name Dose Route Start Last Admin Trade Name Freq PRN Reason Stop Dose Admin Amlodipine Besylate 5 mg 11/01/17 10:00 Norvasc - PO DAILY [facility] Chlorhexidine Gluconate 1 applic 10/31/17 22:00 10/31/17 23:17 Hibiclens For Decolonization - TP 1 applic HS LEV Administration Hydralazine HCl 25 mg 11/01/17 06:00 11/01/17 06:23 Apresoline - PO Not Given TID [facility] Insulin Aspart 1 vial 11/01/17 07:00 11/01/17 07:02 Novolog Vial Sliding Scale - SQ Not Given ACHS [facility] Protocol Labetalol HCl 400 mg 10/31/17 22:30 10/31/17 23:20 Normodyne - PO 400 mg BID LEV Administration Levetiracetam 500 mg 11/01/17 10:00 Keppra Xr - PO BID [facility] Losartan Potassium 50 mg 11/01/17 10:00 Cozaar - PO DAILY [facility] Mirtazapine 15 mg 11/01/17 22:00 Remeron - PO HS [facility] Mupirocin 1 applic 10/31/17 22:00 11/01/17 01:00 Bactroban Ointment (For Decolonization) - NS 11/05/17 21:59 1 applic BID LEV Administration Pantoprazole Sodium 40 mg 11/01/17 10:00 Protonix - PO DAILY [facility] ASSESSMENT/PLAN: 1) Pneumothorax --Pigtail inserted and set to -20 wall suction --Bloody drainage noted from pleurex canister --Discontinue Eliquis due to risk of bleeding --Repeat CXR today shows pigtail may be low set --Cardiothoracic surgery consulted: --Pigtail to be set to water seal in AM --CXR in AM for assessment of PTX 2) Elevated Troponin --Now downtrending to 3.9 --Suspect due to demand from decreased O2 from PTX --EKg w/o ischemia changes --Dr. Meehan consulted --Echo without wall motion abnormalities noted; normal EF --Continue Labetalol 400mg BID PO 3) HTN --Continue Cozaar 50mg PO qdaily --Continue Hydralazine 25mg PO TID --Norvasc 5mg PO qdaily 4) DM --A1c 6.9% --ISS --BGM ACHS 5) Schizophrenia --Continue Remeron 15mg PO HS FEN: NS @100cc/hr Electrolyte abnormalities: Nutrition: Diabetic diet PPX: DVT - Xeralto being held due to bleeding seen near pigtail; SCDs PPX - Protonix 40mg PO qdaily Dispo: Transfer to tele Case discussed with Dr. Latha Black, DO - IM PGY-1 Visit type - Emergency Visit Emergency Visit: No - New Patient This patient is new to me today: No - Critical Care Critical Care patient: Yes Total Critical Care Time (in minutes): 40 Critical Care Statement: The care of this patient involved high complexity decision making to prevent further life threatening deterioration of the patient 's condition and/or to evaluate & treat vital organ system(s) failure or risk of failure.
--- NOTE | 2017-11-01 08:26 | PN ---
Teaching Attending Note Name of Resident: Adams Black ATTENDING PHYSICIAN STATEMENT I saw and evaluated the patient. I reviewed the resident's note and discussed the case with the resident. I agree with the resident's findings and plan as documented. SUBJECTIVE: Patient is comfortable with no acute distress, no shortness of breath, no nausea or vomiting. S/p Fall OBJECTIVE: Vital Signs Temperature 97.8 F 11/01/17 06:00 Pulse Rate 71 11/01/17 06:00 Respiratory Rate 20 11/01/17 06:00 Blood Pressure 114/65 11/01/17 06:00 O2 Sat by Pulse Oximetry (%) 97 10/31/17 22:40 GENERAL: Awake, alert, and oriented to person, place, date, situation, in no acute distress. HEAD: Normal with no signs of trauma. EYES: Pupils equal, round and reactive to light, extraocular movements intact, sclera anicteric, conjunctiva clear. EARS, NOSE, THROAT: oropharynx clear without exudates. dry mucous membranes. NECK: Normal range of motion, supple without lymphadenopathy, JVD, or masses. LUNGS: Breath sounds equal, clear to auscultation bilaterally. No wheezes, and no crackles. No accessory muscle use. HEART: Regular rate and rhythm, normal S1 and S2 without murmur, rub or gallop. ABDOMEN: Soft, nontender, not distended, normoactive bowel sounds, no guarding, no rebound, no masses. No hepatomegaly or splenomegaly. MUSCULOSKELETAL: Normal range of motion at all joints. post. chest is kyphotic . No CVA tenderness. EXTREMITIES: 2+ pulses, warm, well-perfused. No cyanosis. No clubbing. No peripheral edema. NEUROLOGICAL: Cranial nerves II-XII intact. Normal speech. gait not observed PSYCHIATRIC: Cooperative. Good eye contact. Appropriate mood and affect. SKIN: Warm, dry, normal turgor, no rashes or lesions noted, normal capillary refill. CBCD WBC 8.0 K/mm3 (4.0-10.0) 11/01/17 05:15 RBC 4.60 M/mm3 (3.60-5.2) 11/01/17 05:15 Hgb 12.1 GM/dL (10.7-15.3) 11/01/17 05:15 Hct 37.3 % (32.4-45.2) 11/01/17 05:15 MCV 81.1 fl (80-96) 11/01/17 05:15 MCHC 32.6 g/dl (32.0-36.0) 11/01/17 05:15 RDW 17.2 % (11.6-15.6) H 11/01/17 05:15 Plt Count 218 K/MM3 (134-434) 11/01/17 05:15 MPV 9.3 fl (7.5-11.1) 11/01/17 05:15 CMP Sodium 144 mmol/L (136-145) 11/01/17 05:15 Potassium 4.1 mmol/L (3.5-5.1) 11/01/17 05:15 Chloride 106 mmol/L (98-107) 11/01/17 05:15 Carbon Dioxide 25 mmol/L (21-32) 11/01/17 05:15 Anion Gap 13 (8-16) 11/01/17 05:15 BUN 29 mg/dL (7-18) H 11/01/17 05:15 Creatinine 1.7 mg/dL (0.55-1.02) H 11/01/17 05:15 Creat Clearance w eGFR 30.16 (>60) 11/01/17 05:15 Random Glucose 160 mg/dL (74-106) H 11/01/17 05:15 Calcium 9.4 mg/dL (8.5-10.1) 11/01/17 05:15 Total Bilirubin 0.6 mg/dL (0.2-1.0) D 11/01/17 05:15 AST 21 U/L (15-37) 11/01/17 05:15 ALT 16 U/L (12-78) 11/01/17 05:15 Alkaline Phosphatase 125 U/L (45-117) H 11/01/17 05:15 Total Protein 7.4 g/dl (6.4-8.2) 11/01/17 05:15 Albumin 3.4 g/dl (3.4-5.0) 11/01/17 05:15 CARDIAC ENZYMES Creatine Kinase 454 IU/L (26-192) H 10/31/17 20:28 Troponin I 5.25 ng/ml (0.00-0.05) H* 05/09/18 20:28 Current Medications Generic Name Dose Route Start Last Admin Trade Name Britney PRN Reason Stop Dose Admin Amlodipine Besylate 5 mg 11/01/17 10:00 Norvasc - PO DAILY [facility] Chlorhexidine Gluconate 1 applic 10/31/17 22:00 10/31/17 23:17 Hibiclens For Decolonization - TP 1 applic HS [facility] Administration Hydralazine HCl 25 mg 11/01/17 06:00 11/01/17 06:23 Apresoline - PO Not Given TID [facility] Insulin Aspart 1 vial 11/01/17 07:00 11/01/17 07:02 Novolog Vial Sliding Scale - SQ Not Given ACHS [facility] Protocol Labetalol HCl 400 mg 10/31/17 22:30 10/31/17 23:20 Normodyne - PO 400 mg BID LEV Administration Levetiracetam 500 mg 11/01/17 10:00 Keppra Xr - PO BID LEV Losartan Potassium 50 mg 11/01/17 10:00 Cozaar - PO DAILY [facility] Mirtazapine 15 mg 11/01/17 22:00 Remeron - PO HS [facility] Mupirocin 1 applic 10/31/17 22:00 11/01/17 01:00 Bactroban Ointment (For Decolonization) - NS 11/05/17 21:59 1 applic BID LEV Administration Pantoprazole Sodium 40 mg 11/01/17 10:00 Protonix - PO DAILY [facility] Home Medications Medication Instructions Recorded Amlodipine Besylate [Norvasc -] 5 mg PO DAILY 01/28/14 Labetalol HCl [Normodyne -] 400 mg PO Q12H 01/28/14 Levetiracetam [Levetiracetam ER] 500 mg PO BID 01/28/14 Losartan Potassium 50 mg PO DAILY 01/28/14 Acetaminophen [Mapap] 650 mg PO BID 07/16/16 Insulin Lispro [Humalog] 4 unit SQ TID 07/16/16 Mirtazapine [Remeron -] 15 mg PO HS 07/16/16 Pantoprazole Sodium 40 mg PO DAILY 07/16/16 hydrALAZINE HCL [Apresoline -] 25 mg PO TID 07/16/16 Rivaroxaban [Xarelto -] 20 mg PO DAILY 07/17/16 ASSESSMENT AND PLAN: Patient is a 67 yr old female with pmhx of HTN, current every day smoker presents with spontanous right sided penumothorax likely due to mechanical fall few days ago s/p pigtail insertion admitted to ICU for further management. #Acute Pneumothorax s/p pigtail insertion in ED., serosangeonous drainage , CT surgery consulted, pulmonary on the case, on supplemental oxygen to maintain o2> 88% , Lung is re-expanded on f/u cxr. continue suction on chest tube for next 24 hours. waterseal for am and possible d/c tomorrow. hold off on Xarelto for now. # Elevated troponin most likely due to demand ischemia, less likely to be ACS. No ischemic ekg changes, pt denies chest pain # Hx of DVT ;as per chart review, in 2017 pt had a DVT and was treated with xarelto,, and is not clear why she was continued on it or how long she needs to be on the xarelto. #HTN continue home meds losartan, labetalol, norvasc, hydralazine #schizophrenia continue remeron #T2DM - bgm ACHS, NISS, get A1c in the AM #smoking cessation, pt declined nicotine patch, counseling offered # ON Keppra, not sure why?? #DVT ppx : as per Cardiothoracic surgeon to hold off on xarelto or heparin since having serosinguiness drainage. pt has three children, two sons and a daughter. son Yaa is who she told me would like to make decisions for her if she is unable to do so herself, he is in [place]. Her daughter is in [place], the 2nd son is in [place] but appears that she has not seen him in a long time. denies being . Patient is in ICU
[2017-11-01 09:11] LABS: URINE APPEARANCE SLCLOUDY; URINE BILIRUBIN NEGATIVE (<2.0 mg/dL); URINE COLOR LTYELLOW; URINE GLUCOSE (UA) NEGATIVE (NEGATIVE); URINE KETONE NEGATIVE (NEGATIVE); URINE LEUK ESTERASE NEGATIVE (NEGATIVE); URINE NITRITE NEGATIVE (NEGATIVE); URINE PROTEIN NEGATIVE (NEGATIVE); URINE UROBILINOGEN NEGATIVE mg/dL (0.2-1.0)
[2017-11-01] MEDS ORDERED: levETIRAcetam XR 500 MG TAB PO SCH (10:00)
[2017-11-01] MEDS ORDERED: PANTOPRAZOLE 40 MG TABLET (FP) PO SCH (10:00)
[2017-11-01] MEDS ORDERED: amLODIPine BESYLATE 5 MG TABLET (FP) PO SCH (10:00)
[2017-11-01] MEDS ORDERED: LOSARTAN POTASSIUM 50 MG TABLET (FP) PO SCH (10:00)
[2017-11-01] MEDS ORDERED: PT OWN MED DRAWER 7, Y5N ONE (10:56)
[2017-11-01] MEDS: LABETALOL HCL 200 MG TABLET (FP) PO SCH ×2 (11:44→22:04)
--- NOTE | 2017-11-01 11:45 | EKG ---
Test Reason : Blood Pressure : / mmHG Vent. Rate : 086 BPM Atrial Rate : 086 BPM P-R Int : 154 ms QRS Dur : 094 ms QT Int : 428 ms P-R-T Axes : 069 -27 118 degrees QTc Int : 512 ms POOR DATA QUALITY, INTERPRETATION MAY BE ADVERSELY AFFECTED NORMAL SINUS RHYTHM LEFT VENTRICULAR HYPERTROPHY WITH REPOLARIZATION ABNORMALITY ABNORMAL ECG WHEN COMPARED WITH ECG OF 16-JUL-2016 19:06, T WAVE INVERSION LESS EVIDENT IN LATERAL LEADS Confirmed by MERCED FIGUEROA MD ([id number]) on 11/01/2017 11:44:55 AM Referred By: Confirmed By:MERCED FIGUEROA MD
--- NOTE | 2017-11-01 11:59 | PN ---
Teaching Attending Note Name of Resident: Matt Ron ATTENDING PHYSICIAN STATEMENT I saw and evaluated the patient. I reviewed the resident's note and discussed the case with the resident. I agree with the resident's findings and plan as documented. SUBJECTIVE: Patient seen and examined in the ICU. Awake and alert. Mild discomfort at the pleural catheter site. Noted sero-sang drainage. CXR: small residual Right PTX Intake & Output 10/29/17 10/30/17 10/31/17 11/01/17 23:59 23:59 23:59 23:59 Intake Total 60 Output Total 180 70 Balance -180 -10 Weight 148 lb 6.4 oz 146 lb 14.4 oz Last Vital Signs Temp Pulse Resp BP Pulse Ox 98.4 F 64 16 108/71 97 11/01/17 10:00 11/01/17 10:00 11/01/17 10:00 11/01/17 10:00 10/31/17 22:40 Active Medications Amlodipine Besylate (Norvasc -) 5 mg PO DAILY [facility] Last Admin: 11/01/17 10:53 Dose: 5 mg Chlorhexidine Gluconate (Hibiclens For Decolonization -) 1 applic TP HS [facility] Last Admin: 10/31/17 23:17 Dose: 1 applic Hydralazine HCl (Apresoline -) 25 mg PO TID [facility] Last Admin: 11/01/17 06:23 Dose: Not Given Insulin Aspart (Novolog Vial Sliding Scale -) 1 vial SQ ACHS [facility] PRN Reason: Protocol Last Admin: 11/01/17 11:47 Dose: 2 units Labetalol HCl (Normodyne -) 400 mg PO BID [facility] Last Admin: 11/01/17 11:44 Dose: Not Given Levetiracetam (Keppra Xr -) 500 mg PO BID [facility] Last Admin: 11/01/17 10:56 Dose: 500 mg Losartan Potassium (Cozaar -) 50 mg PO DAILY [facility] Last Admin: 11/01/17 10:53 Dose: 50 mg Mirtazapine (Remeron -) 15 mg PO HS [facility] Mupirocin (Bactroban Ointment (For Decolonization) -) 1 applic NS BID [facility] Stop: 11/05/17 21:59 Last Admin: 11/01/17 10:54 Dose: 1 applic Pantoprazole Sodium (Protonix -) 40 mg PO DAILY [facility] Last Admin: 11/01/17 10:53 Dose: 40 mg Constitutional: Yes: Well Nourished, No Distress Eyes: Yes: WNL, PERRL HENT: Yes: Atraumatic, Normocephalic Neck: Yes: Trachea Midline Cardiovascular: Yes: Regular Rate and Rhythm, S1, S2 Respiratory: Yes: right pleural catheter, few basilar rhonhci Gastrointestinal: Yes: Normal Bowel Sounds, Soft Renal/: Yes: Meyer Present Extremities: Yes: WNL Edema: No Peripheral Pulses WNL: Yes Neurological: Yes: tremor Psychiatric: Yes: Oriented Labs: Laboratory Results - last 24 hr 10/31/17 10/31/17 10/31/17 16:56 16:56 16:56 WBC 6.3 RBC 4.63 Hgb 12.2 Hct 37.3 MCV 80.4 MCH 26.3 MCHC 32.8 RDW 17.1 H Plt Count 207 MPV 9.3 Neutrophils % 76.2 D Lymphocytes % 17.5 D Monocytes % 3.8 Eosinophils % 1.8 Basophils % 0.7 PT with INR INR PTT (Actin FS) Anticoagulation Therapy Puncture Site ABG pH ABG pCO2 at Pt Temp ABG pO2 at Pt Temp ABG HCO3 ABG O2 Sat (Measured) ABG O2 Content ABG Base Excess Sammy Test Carboxyhemoglobin Methemoglobin O2 Delivery Device Oxygen Flow Rate Vent Mode Vent Rate Mechanical Rate Pressure Support Vent Sodium 140 Potassium 3.2 L Chloride 109 H Carbon Dioxide 23 Anion Gap 8 BUN 24 H Creatinine 1.5 H Creat Clearance w eGFR 34.85 POC Glucometer Random Glucose 162 H Hemoglobin A1c % Lactic Acid 0.8 Calcium 8.5 Phosphorus Magnesium 1.9 Total Bilirubin 0.4 D AST 23 ALT 17 Alkaline Phosphatase 134 H Creatine Kinase 394 H Creatine Kinase Index 2.2 CK-MB (CK-2) 8.694 H Troponin I 5.27 H* B-Natriuretic Peptide Total Protein 7.9 Albumin 3.6 Urine Color Urine Appearance Urine pH Ur Specific [place] Urine Protein Urine Glucose (UA) Urine Ketones Urine Blood Urine Nitrite Urine Bilirubin Urine Urobilinogen Ur Leukocyte Esterase Blood Type Antibody Screen 10/31/17 10/31/17 10/31/17 16:56 16:56 18:01 WBC RBC Hgb Hct MCV MCH MCHC RDW Plt Count MPV Neutrophils % Lymphocytes % Monocytes % Eosinophils % Basophils % PT with INR 22.70 H INR 2.01 H D PTT (Actin FS) 40.9 H D Anticoagulation Therapy No Result Required. Puncture Site No Result Required. ABG pH 7.34 L ABG pCO2 at Pt Temp 45.2 H ABG pO2 at Pt Temp 49.7 L* ABG HCO3 23.8 ABG O2 Sat (Measured) 81.3 L ABG O2 Content 13.9 L ABG Base Excess -1.5 Sammy Test Positive Carboxyhemoglobin 2.3 H Methemoglobin 1.6 H O2 Delivery Device No Result Required. Oxygen Flow Rate No Result Required. Vent Mode No Result Required. Vent Rate No Result Required. Mechanical Rate No Result Required. Pressure Support Vent No Result Required. Sodium Potassium Chloride Carbon Dioxide Anion Gap BUN Creatinine Creat Clearance w eGFR POC Glucometer Random Glucose Hemoglobin A1c % Lactic Acid Calcium Phosphorus Magnesium Total Bilirubin AST ALT Alkaline Phosphatase Creatine Kinase Creatine Kinase Index CK-MB (CK-2) Troponin I B-Natriuretic Peptide 429.77 H Total Protein Albumin Urine Color Urine Appearance Urine pH Ur Specific [place] Urine Protein Urine Glucose (UA) Urine Ketones Urine Blood Urine Nitrite Urine Bilirubin Urine Urobilinogen Ur Leukocyte Esterase Blood Type Antibody Screen 10/31/17 10/31/17 10/31/17 20:28 20:28 20:28 WBC 6.3 RBC 4.88 Hgb 13.0 Hct 39.7 MCV 81.4 MCH 26.6 MCHC 32.7 RDW 17.2 H Plt Count 214 MPV 9.1 Neutrophils % 91.5 H D Lymphocytes % 7.3 L D Monocytes % 0.7 L D Eosinophils % 0.1 D Basophils % 0.4 PT with INR INR PTT (Actin FS) Anticoagulation Therapy Puncture Site ABG pH ABG pCO2 at Pt Temp ABG pO2 at Pt Temp ABG HCO3 ABG O2 Sat (Measured) ABG O2 Content ABG Base Excess Sammy Test Carboxyhemoglobin Methemoglobin O2 Delivery Device Oxygen Flow Rate Vent Mode Vent Rate Mechanical Rate Pressure Support Vent Sodium Potassium Chloride Carbon Dioxide Anion Gap BUN Creatinine Creat Clearance w eGFR POC Glucometer Random Glucose Hemoglobin A1c % Lactic Acid 1.5 Calcium Phosphorus Magnesium Total Bilirubin AST ALT Alkaline Phosphatase Creatine Kinase 454 H Creatine Kinase Index 2.8 CK-MB (CK-2) 12.875 H Troponin I 5.25 H* B-Natriuretic Peptide Total Protein Albumin Urine Color Urine Appearance Urine pH Ur Specific [place] Urine Protein Urine Glucose (UA) Urine Ketones Urine Blood Urine Nitrite Urine Bilirubin Urine Urobilinogen Ur Leukocyte Esterase Blood Type Antibody Screen 10/31/17 11/01/17 11/01/17 23:38 02:00 05:01 WBC RBC Hgb Hct MCV MCH MCHC RDW Plt Count MPV Neutrophils % Lymphocytes % Monocytes % Eosinophils % Basophils % PT with INR INR PTT (Actin FS) Anticoagulation Therapy No Result Required. Puncture Site No Result Required. ABG pH 7.39 ABG pCO2 at Pt Temp 38.2 ABG pO2 at Pt Temp 46.4 L* ABG HCO3 22.6 ABG O2 Sat (Measured) 80.2 L ABG O2 Content 14.5 L ABG Base Excess -1.5 Sammy Test No Result Required. Carboxyhemoglobin Methemoglobin O2 Delivery Device No Result Required. Oxygen Flow Rate No Result Required. Vent Mode No Result Required. Vent Rate No Result Required. Mechanical Rate No Result Required. Pressure Support Vent No Result Required. Sodium Potassium Chloride Carbon Dioxide Anion Gap BUN Creatinine Creat Clearance w eGFR POC Glucometer 153.52124 Random Glucose Hemoglobin A1c % Lactic Acid Calcium Phosphorus Magnesium Total Bilirubin AST ALT Alkaline Phosphatase Creatine Kinase Cancelled Creatine Kinase Index CK-MB (CK-2) Troponin I Cancelled B-Natriuretic Peptide Total Protein Albumin Urine Color Urine Appearance Urine pH Ur Specific [place] Urine Protein Urine Glucose (UA) Urine Ketones Urine Blood Urine Nitrite Urine Bilirubin Urine Urobilinogen Ur Leukocyte Esterase Blood Type Antibody Screen 11/01/17 11/01/17 11/01/17 05:15 05:15 05:15 WBC 8.0 RBC 4.60 Hgb 12.1 Hct 37.3 MCV 81.1 MCH 26.4 MCHC 32.6 RDW 17.2 H Plt Count 218 MPV 9.3 Neutrophils % 90.5 H Lymphocytes % 7.8 L Monocytes % 1.5 L D Eosinophils % 0.0 D Basophils % 0.2 PT with INR 16.70 H INR 1.48 H PTT (Actin FS) 35.1 H Anticoagulation Therapy Puncture Site ABG pH ABG pCO2 at Pt Temp ABG pO2 at Pt Temp ABG HCO3 ABG O2 Sat (Measured) ABG O2 Content ABG Base Excess Sammy Test Carboxyhemoglobin Methemoglobin O2 Delivery Device Oxygen Flow Rate Vent Mode Vent Rate Mechanical Rate Pressure Support Vent Sodium 144 Potassium 4.1 Chloride 106 Carbon Dioxide 25 Anion Gap 13 BUN 29 H Creatinine 1.7 H Creat Clearance w eGFR 30.16 POC Glucometer Random Glucose 160 H Hemoglobin A1c % Lactic Acid Calcium 9.4 Phosphorus 4.3 Magnesium 1.8 Total Bilirubin 0.6 D AST 21 ALT 16 Alkaline Phosphatase 125 H Creatine Kinase 321 H Creatine Kinase Index CK-MB (CK-2) Troponin I 3.91 H* B-Natriuretic Peptide Total Protein 7.4 Albumin 3.4 Urine Color Urine Appearance Urine pH Ur Specific [place] Urine Protein Urine Glucose (UA) Urine Ketones Urine Blood Urine Nitrite Urine Bilirubin Urine Urobilinogen Ur Leukocyte Esterase Blood Type Antibody Screen 11/01/17 11/01/17 11/01/17 05:15 05:15 06:00 WBC RBC Hgb Hct MCV MCH MCHC RDW Plt Count MPV Neutrophils % Lymphocytes % Monocytes % Eosinophils % Basophils % PT with INR INR PTT (Actin FS) Anticoagulation Therapy Puncture Site ABG pH ABG pCO2 at Pt Temp ABG pO2 at Pt Temp ABG HCO3 ABG O2 Sat (Measured) ABG O2 Content ABG Base Excess Sammy Test Carboxyhemoglobin Methemoglobin O2 Delivery Device Oxygen Flow Rate Vent Mode Vent Rate Mechanical Rate Pressure Support Vent Sodium Potassium Chloride Carbon Dioxide Anion Gap BUN Creatinine Creat Clearance w eGFR POC Glucometer Random Glucose Hemoglobin A1c % 6.9 H Lactic Acid Calcium Phosphorus Magnesium Total Bilirubin AST ALT Alkaline Phosphatase Creatine Kinase Creatine Kinase Index CK-MB (CK-2) Troponin I B-Natriuretic Peptide Total Protein Albumin Urine Color L[place]ellow Urine Appearance Slcloudy Urine pH 5.0 Ur Specific [place] 1.010 Urine Protein Negative Urine Glucose (UA) Negative Urine Ketones Negative Urine Blood Negative Urine Nitrite Negative Urine Bilirubin Negative Urine Urobilinogen Negative Ur Leukocyte Esterase Negative Blood Type AB POSITIVE Antibody Screen Negative 11/01/17 11/01/17 06:18 09:40 WBC RBC Hgb Hct MCV MCH MCHC RDW Plt Count MPV Neutrophils % Lymphocytes % Monocytes % Eosinophils % Basophils % PT with INR INR PTT (Actin FS) Anticoagulation Therapy Puncture Site ABG pH ABG pCO2 at Pt Temp ABG pO2 at Pt Temp ABG HCO3 ABG O2 Sat (Measured) ABG O2 Content ABG Base Excess Sammy Test Carboxyhemoglobin Methemoglobin O2 Delivery Device Oxygen Flow Rate Vent Mode Vent Rate Mechanical Rate Pressure Support Vent Sodium Potassium Chloride Carbon Dioxide Anion Gap BUN Creatinine Creat Clearance w eGFR POC Glucometer 183.79445 Random Glucose Hemoglobin A1c % Lactic Acid Calcium Phosphorus Magnesium Total Bilirubin AST ALT Alkaline Phosphatase Creatine Kinase Creatine Kinase Index CK-MB (CK-2) Troponin I B-Natriuretic Peptide Total Protein Albumin Urine Color Urine Appearance Urine pH Ur Specific [place] Urine Protein Urine Glucose (UA) Urine Ketones Urine Blood Urine Nitrite Urine Bilirubin Urine Urobilinogen Ur Leukocyte Esterase Blood Type AB POSITIVE Antibody Screen Problem List - Problems (1) Hypoxemia Code(s): R09.02 - HYPOXEMIA (2) NSTEMI (non-ST elevated myocardial infarction) Code(s): I21.4 - NON-ST ELEVATION (NSTEMI) MYOCARDIAL INFARCTION (3) Pneumothorax Code(s): J93.9 - PNEUMOTHORAX, UNSPECIFIED (4) Altered mental status Code(s): R41.82 - ALTERED MENTAL STATUS, UNSPECIFIED Qualifiers: Altered mental status type: somnolence Qualified Code(s): R40.0 - Somnolence (5) Contusion Code(s): T14.8 - OTHER INJURY OF UNSPECIFIED BODY REGION * DO NOT USE * Qualifiers: Encounter type: initial encounter Contusion area: knee Laterality: left Qualified Code(s): S80.02XA - Contusion of left knee, initial encounter (6) Fall Code(s): W19.XXXA - UNSPECIFIED FALL, INITIAL ENCOUNTER Qualifiers: Encounter type: initial encounter Qualified Code(s): W19.XXXA - Unspecified fall, initial encounter Assessment/Plan Supplemental O2 Monitor CT drainage Keep on suction x 24 hours, clamp tomorrow AM and repeat CXR late afternoon and if no PTX can D/C pigtail Incentive spirometry Pulmonary toilet PO as tolerated Daily CXR while pleural catheter is in place Pain control SCDs Cardiac Telemetry monitoring Dr Brown Critical care time spent in reviewing chart, evaluating patient and formulating plan - 36 minutes.
[2017-11-01] MEDS ORDERED: SODIUM CHLORIDE 1,000 ML IV SCH ×2 (12:00→19:22)
--- NOTE | 2017-11-01 13:00 | CONSULT ---
Consult Consult Specialty:: Thoracic Reason for Consultation:: Primary spontaneous pneumothorax - History of Present Illness Chief Complaint: Shortness of breath History of Present Illness: 67y/o F with PMHx HTN, IDDM, Schizophrenia, DVT on Xarelto, smoker who was BIBEMS from [facility] for SOB since morning. She reports a fall in her room on 10/19 where she was taken to [facility] and told she had a fractured Right rib. She was given morphine for pain and transported back to [place]. She was in her usual state of health until this am when she had SOB. In the ED T 97.3, HR 87, RR 28, BP 172/84, O2 sat 88% on room air. labs notable for PaO2 49, Trop 5.4. CXR s/f Rt pneumothorax. Rt pigtail to pleuravac placed. Pleural fluid blood tinged, no air leak. She denied chest pain, dizziness, lightheadedness. O2 weaned to venti-mask. She was transferred to ICU for further management. In ICU rec'd lethargic and slow to respond but oriented x3. Comfortable on venti mask 28% RR 15, HR 71, BP 129/75. Pigtail to pleurevac intact and draining small amt of serosang fluid. No air leak. - History Source History Provided By: Patient, Medical Record Limitations to Obtaining History: Clinical Condition - Past Medical History Cardio/Vascular: Yes: HTN Psych: Yes: Schizophrenia Endocrine: Yes: Diabetes Mellitus - Alcohol/Substance Use Hx Alcohol Use: No - Smoking History Smoking history: Current some day smoker Aproximately how many cigarettes per day: 5 Home Medications - Allergies Allergies/Adverse Reactions: Allergies Allergy/AdvReac Type Severity Reaction Status Date / Time No Known Allergies Allergy Verified 10/31/17 15:42 - Home Medications Home Medications: Ambulatory Orders Amlodipine Besylate [Norvasc -] 5 mg PO DAILY 01/28/14 Labetalol HCl [Normodyne -] 400 mg PO Q12H 01/28/14 Levetiracetam [Levetiracetam ER] 500 mg PO BID 01/28/14 Losartan Potassium 50 mg PO DAILY 01/28/14 Acetaminophen [Mapap] 650 mg PO BID 07/16/16 Insulin Lispro [Humalog] 4 unit SQ TID 07/16/16 Mirtazapine [Remeron -] 15 mg PO HS 07/16/16 Pantoprazole Sodium 40 mg PO DAILY 07/16/16 hydrALAZINE HCL [Apresoline -] 25 mg PO TID 07/16/16 Rivaroxaban [Xarelto -] 20 mg PO DAILY 07/17/16 Physical Exam Vital Signs: Vital Signs Temperature 98.4 F 11/01/17 10:00 Pulse Rate 76 11/01/17 12:00 Respiratory Rate 25 H 11/01/17 12:00 Blood Pressure 110/64 11/01/17 12:00 O2 Sat by Pulse Oximetry (%) 97 10/31/17 22:40 Eyes: Yes: Conjunctiva Clear HENT: Yes: Normocephalic Neck: Yes: Trachea Midline Cardiovascular: Yes: Regular Rate and Rhythm Respiratory: Yes: CTA Bilaterally Gastrointestinal: Yes: Normal Bowel Sounds, Soft Integumentary: Yes: WNL Neurological: Yes: Alert Psychiatric: Yes: Alert Labs: CBC, BMP 11/01/17 05:15 11/01/17 05:15 Imaging - Results Chest X-ray: Report Reviewed (Small residual Right apical pneumothorax.), Image Reviewed Problem List - Problems (1) Hypoxemia Code(s): R09.02 - HYPOXEMIA (2) Pneumothorax Code(s): J93.9 - PNEUMOTHORAX, UNSPECIFIED (3) Fall Code(s): W19.XXXA - UNSPECIFIED FALL, INITIAL ENCOUNTER Qualifiers: Encounter type: initial encounter Qualified Code(s): W19.XXXA - Unspecified fall, initial encounter Assessment/Plan ^7 y/o F s/p fall and right sided pneumothorax was admitted to hospital for SOB. Chest tube was placed in ED. Lung is reeexpanded on f/u cxr. Continue suction on chest tube for next 24 hours. will waterseal tomorrow and possible d/c tomorrow. Please hold off on Xarelto for now. Thank you for courtesy of this referral.
--- NOTE | 2017-11-01 16:29 | CON.CARD ---
Consult Consult Specialty:: Cardiology Referred by:: Tamica Azul Reason for Consultation:: +troponins - History of Present Illness Chief Complaint: SOB and right sided pain History of Present Illness: 67 year old female with a pmhx of htn, IDDM, schizophrenia, DVT on ac, +tobacco use sent from [facility] for sob last two days. Fell on 10/19/17 on right side. Noted to be hypoxic in ER and found to have right sided pneumothorax s/p pigtail insertion. No chest pain. SOB improved Echo: normal LVEF and mod TR CK 450 Trop 5's EKG: sinus with lvh and lateral changes but no new ischemic changes - History Source History Provided By: Patient, Medical Record - Past Medical History Cardio/Vascular: Yes: HTN Psych: Yes: Schizophrenia Endocrine: Yes: Diabetes Mellitus - Alcohol/Substance Use Hx Alcohol Use: No - Smoking History Smoking history: Current some day smoker Have you smoked in the past 12 months: Yes Aproximately how many cigarettes per day: 5 Home Medications - Allergies Allergies/Adverse Reactions: Allergies Allergy/AdvReac Type Severity Reaction Status Date / Time No Known Allergies Allergy Verified 10/31/17 15:42 - Home Medications Home Medications: Ambulatory Orders Amlodipine Besylate [Norvasc -] 5 mg PO DAILY 01/28/14 Labetalol HCl [Normodyne -] 400 mg PO Q12H 01/28/14 Levetiracetam [Levetiracetam ER] 500 mg PO BID 01/28/14 Losartan Potassium 50 mg PO DAILY 01/28/14 Acetaminophen [Mapap] 650 mg PO BID 07/16/16 Insulin Lispro [Humalog] 4 unit SQ TID 07/16/16 Mirtazapine [Remeron -] 15 mg PO HS 07/16/16 Pantoprazole Sodium 40 mg PO DAILY 07/16/16 hydrALAZINE HCL [Apresoline -] 25 mg PO TID 07/16/16 Rivaroxaban [Xarelto -] 20 mg PO DAILY 07/17/16 Vital Signs: Vital Signs Temperature 98.4 F 11/01/17 10:00 Pulse Rate 72 11/01/17 14:00 Respiratory Rate 20 11/01/17 14:00 Blood Pressure 121/53 11/01/17 14:00 O2 Sat by Pulse Oximetry (%) 95 11/01/17 09:00 Constitutional: Yes: No Distress Neck: Yes: Supple Respiratory: Yes: Other (pigtail in right chest otherwise unremarkable) Gastrointestinal: Yes: Normal Bowel Sounds, Soft Cardiovascular: Yes: Regular Rate and Rhythm JVD: No Carotid Bruit: No PMI: Non-Displaced Heart Sounds: Yes: S1, S2 Murmur: No: Systolic Murmur Edema: No - Other Data Labs, Other Data: CBC, BMP 11/01/17 05:15 11/01/17 05:15 INR, PTT INR 1.48 (0.82-1.09) H 11/01/17 05:15 Troponin, BNP 10/31/17 10/31/17 10/31/17 16:56 16:56 20:28 Troponin I 5.27 H* 5.25 H* B-Natriuretic Peptide 429.77 H 11/01/17 11/01/17 05:01 05:15 Troponin I Cancelled 3.91 H* B-Natriuretic Peptide Troponin, BNP 10/31/17 10/31/17 10/31/17 16:56 16:56 20:28 Troponin I 5.27 H* 5.25 H* B-Natriuretic Peptide 429.77 H 11/01/17 11/01/17 05:01 05:15 Troponin I Cancelled 3.91 H* B-Natriuretic Peptide Imaging - Results Chest X-ray: Report Reviewed EKG: Image Reviewed Problem List - Problems (1) NSTEMI (non-ST elevated myocardial infarction) Code(s): I21.4 - NON-ST ELEVATION (NSTEMI) MYOCARDIAL INFARCTION Assessment/Plan 67 year old female with a pmhx of htn, IDDM, schizophrenia, DVT on ac, +tobacco use sent from [facility] for sob last two days. Fell on 10/19/17 on right side. Noted to be hypoxic in ER and found to have right sided pneumothorax s/p pigtail insertion. No chest pain. SOB improved Echo: normal LVEF and mod TR CK 450 Trop 5's EKG: sinus with lvh and lateral changes but no new ischemic changes 1) NSTEMI -Would treat medical therapy at this time. Patient denies any chest pain and is comfortable at this time. EKG with no new ischemic changes when compared to old ones. Echo with normal LVEF and no new wall motion abnormalities. No events on tele -Continue beta charles Anticoagulation is on hold given chest pigtail and bloody drainage. -Statin -Fdc aspirin 81mg daily when deemed safe
[2017-11-01 19:01] LABS: HEMATOCRIT 35.3 % (32.4-45.2); HEMOGLOBIN 11.6 GM/dL (10.7-15.3); MCH 26.8 pg (25.7-33.7); MEAN PLT VOLUME 10.2 fl (7.5-11.1); PLATELET COUNT 239 K/MM3 (134-434); RBC 4.35 M/mm3 (3.60-5.2); RDW 17.4 % (11.6-15.6); WHITE BLOOD COUNT 13.3 K/mm3 (4.0-10.0)
[2017-11-01] MEDS ORDERED: morphine SULFATE 4 MG/ML VIAL IVPUSH ONE (19:30)
[2017-11-01] MEDS ORDERED: MIRTAZAPINE 15 MG TABLET (FP) PO SCH (22:00)
[2017-11-01] MEDS: CHLORHEXIDINE GLUCONATE 4% CLEANSER FOR DECOLONIZATION TP SCH (22:02)
[2017-11-01] MEDS: MIRTAZAPINE 15 MG TABLET (FP) PO SCH (22:03)
[2017-11-01] MEDS: levETIRAcetam XR 500 MG TAB PO SCH (22:07)
[2017-11-02] MEDS: INSULIN SLIDING SCALE (NOVOLOG) 1 VIAL SQ SCH ×4 (06:25→23:56)
[2017-11-02] MEDS: hydrALAZINE HCL 25 MG TABLET (FP) PO SCH ×3 (06:29→21:54)
[2017-11-02 06:48] LABS: ALBUMIN 2.7 g/dl (3.4-5.0); ANION GAP 9 (8-16); BLOOD UREA NITROGEN 54 mg/dL (7-18); CHLORIDE 112 mmol/L (98-107); CO2 22 mmol/L (21-32); CREATININE 2.2 mg/dL (0.55-1.02); GLUCOSE,RANDOM 100 mg/dL (74-106); MAGNESIUM 1.8 mg/dL (1.8-2.4); PHOSPHOROUS 3.4 mg/dL (2.5-4.9); POTASSIUM 3.9 mmol/L (3.5-5.1); SGOT/AST 13 U/L (15-37); SGPT/ALT 12 U/L (12-78); SODIUM 143 mmol/L (136-145)
[2017-11-02 06:51] LABS: ALK PHOS 96 U/L (45-117); BILIRUBIN,TOTAL 0.4 mg/dL (0.2-1.0); TOT PROT 6.1 g/dl (6.4-8.2)
[2017-11-02 06:54] LABS: BASO % 0.4 % (0-2.0); EOS % 0.5 % (0-4.5); HEMATOCRIT 33.5 % (32.4-45.2); HEMOGLOBIN 10.9 GM/dL (10.7-15.3); MCH 26.2 pg (25.7-33.7); MCHC 32.6 g/dl (32.0-36.0); MEAN CELL VOLUME 80.5 fl (80-96); MEAN PLT VOLUME 9.6 fl (7.5-11.1); NEUT % 69.1 % (42.8-82.8); PLATELET COUNT 214 K/MM3 (134-434); RBC 4.15 M/mm3 (3.60-5.2); RDW 17.4 % (11.6-15.6); WHITE BLOOD COUNT 9.7 K/mm3 (4.0-10.0)
--- NOTE | 2017-11-02 08:29 | PN ---
Teaching Attending Note Name of Resident: Adams Black ATTENDING PHYSICIAN STATEMENT I saw and evaluated the patient. I reviewed the resident's note and discussed the case with the resident. I agree with the resident's findings and plan as documented. SUBJECTIVE: Patient feels uncomfortable, patient is c/o having chest pain at the insertion site. OBJECTIVE: Vital Signs Temperature 98.0 F 11/02/17 06:00 Pulse Rate 72 11/02/17 08:00 Respiratory Rate 24 11/02/17 08:00 Blood Pressure 130/72 11/02/17 08:00 O2 Sat by Pulse Oximetry (%) 95 11/01/17 21:00 CBCD WBC 9.7 K/mm3 (4.0-10.0) 11/02/17 05:56 RBC 4.15 M/mm3 (3.60-5.2) 11/02/17 05:56 Hgb 10.9 GM/dL (10.7-15.3) 11/02/17 05:56 Hct 33.5 % (32.4-45.2) 11/02/17 05:56 MCV 80.5 fl (80-96) 11/02/17 05:56 MCHC 32.6 g/dl (32.0-36.0) 11/02/17 05:56 RDW 17.4 % (11.6-15.6) H 11/02/17 05:56 Plt Count 214 K/MM3 (134-434) 11/02/17 05:56 MPV 9.6 fl (7.5-11.1) 11/02/17 05:56 CMP Sodium 143 mmol/L (136-145) 11/02/17 05:56 Potassium 3.9 mmol/L (3.5-5.1) 11/02/17 05:56 Chloride 112 mmol/L (98-107) H 11/02/17 05:56 Carbon Dioxide 22 mmol/L (21-32) 11/02/17 05:56 Anion Gap 9 (8-16) 11/02/17 05:56 BUN 54 mg/dL (7-18) H D 11/02/17 05:56 Creatinine 2.2 mg/dL (0.55-1.02) H 11/02/17 05:56 Creat Clearance w eGFR 22.40 (>60) 11/02/17 05:56 Random Glucose 100 mg/dL (74-106) 11/02/17 05:56 Calcium 8.0 mg/dL (8.5-10.1) L 11/02/17 05:56 Total Bilirubin 0.4 mg/dL (0.2-1.0) D 11/02/17 05:56 AST 13 U/L (15-37) L 11/02/17 05:56 ALT 12 U/L (12-78) 11/02/17 05:56 Alkaline Phosphatase 96 U/L (45-117) 11/02/17 05:56 Total Protein 6.1 g/dl (6.4-8.2) L 11/02/17 05:56 Albumin 2.7 g/dl (3.4-5.0) L 11/02/17 05:56 CARDIAC ENZYMES Creatine Kinase 321 IU/L (26-192) H 11/01/17 05:15 Troponin I 3.91 ng/ml (0.00-0.05) H* 11/01/17 05:15 Current Medications Generic Name Dose Route Start Last Admin Trade Name Michaelq PRN Reason Stop Dose Admin Amlodipine Besylate 5 mg 11/02/17 10:00 Norvasc - PO DAILY LEV Chlorhexidine Gluconate 1 applic 11/01/17 22:00 11/01/17 22:02 Hibiclens For Decolonization - TP 1 applic HS LEV Administration Hydralazine HCl 25 mg 11/01/17 22:00 11/02/17 06:29 Apresoline - PO 25 mg TID LEV Administration Sodium Chloride 1,000 mls @ 100 mls/hr 11/02/17 07:52 Normal Saline - IV ASDIR LEV Insulin Aspart 1 vial 11/01/17 22:00 11/02/17 06:25 Novolog Vial Sliding Scale - SQ Not Given ACHS LEV Protocol Labetalol HCl 400 mg 11/01/17 22:00 11/01/17 22:04 Normodyne - PO 400 mg BID LEV Administration Levetiracetam 500 mg 11/01/17 22:00 11/01/17 22:07 Keppra Xr - PO 500 mg BID LEV Administration Mirtazapine 15 mg 11/01/17 22:00 11/01/17 22:03 Remeron - PO 15 mg HS LEV Administration Mupirocin 1 applic 11/01/17 22:00 11/01/17 22:01 Bactroban Ointment (For Decolonization) - NS 11/05/17 21:59 1 applic BID LEV Administration Pantoprazole Sodium 40 mg 11/02/17 10:00 Protonix - PO DAILY [facility] Home Medications Medication Instructions Recorded Amlodipine Besylate [Norvasc -] 5 mg PO DAILY 01/28/14 Labetalol HCl [Normodyne -] 400 mg PO Q12H 01/28/14 Levetiracetam [Levetiracetam ER] 500 mg PO BID 01/28/14 Losartan Potassium 50 mg PO DAILY 01/28/14 Acetaminophen [Mapap] 650 mg PO BID 07/16/16 Insulin Lispro [Humalog] 4 unit SQ TID 07/16/16 Mirtazapine [Remeron -] 15 mg PO HS 07/16/16 Pantoprazole Sodium 40 mg PO DAILY 07/16/16 hydrALAZINE HCL [Apresoline -] 25 mg PO TID 07/16/16 Rivaroxaban [Xarelto -] 20 mg PO DAILY 07/17/16 PE: per resident's note ASSESSMENT AND PLAN: Patient is a 67 yr old female with pmhx of HTN, current every day smoker presents with spontanous right sided penumothorax likely due to mechanical fall few days ago s/p pigtail insertion admitted to ICU for further management. #Acute Pneumothorax s/p pigtail insertion in ED., serosangeonous drainage , CT surgery , pulmonary on the case, on supplemental oxygen to maintain o2>88% , waterseal for am if stable will d/c, hold off on Xarelto for now. # Elevated troponin most likely due to demand ischemia, less likely to be ACS. No ischemic ekg changes, pt denies chest pain # Hx of DVT ;as per chart review, in 2017 pt had a DVT and was treated with xarelto,, and is not clear why she was continued on it. #HTN continue home meds losartan, labetalol, norvasc, hydralazine #schizophrenia continue remeron #T2DM - bgm ACHS, NISS, get A1c in the AM #smoking cessation, pt declined nicotine patch, counseling offered # ON Keppra, not sure why?? #DVT ppx : as per Cardiothoracic surgeon to hold off on xarelto or heparin since having serosinguiness drainage. pt has three children, two sons and a daughter. son Yaa is who she told me would like to make decisions for her if she is unable to do so herself, he is in [place]. Her daughter is in [place], the 2nd son is in [place] but appears that she has not seen him in a long time. denies being .
--- NOTE | 2017-11-02 08:53 | PN ---
Physical Exam: SUBJECTIVE: Pt reports no change from previous day. She reports sleeping well without any complaints at the moment. OBJECTIVE: Vital Signs Period Temp Pulse Resp BP Sys/Miller Pulse Ox Last 24 Hr 98.0 F-98.4 F 64-76 16-25 93-137/48-72 95-95 GENERAL: NAD, awake, alert, kyphotic and sitting at bedside HEENT: NC/AT, EOMI, FIGUEROA, moist mucosa LUNGS: CTA with poor inspiratory effort noted, pigtail attached with sutures with serous drainage in pleurex device. No leak observed even with cough; Canister on -20 suction HEART: RRR, S1, S2 without murmur ABDOMEN: Soft, nontender, nondistended, normoactive bowel sounds, no guarding EXTREMITIES: 2+ DP pulses, warm, no edema. Laboratory Results - last 24 hr 11/01/17 11/01/17 11/01/17 05:01 05:15 05:15 WBC RBC Hgb Hct MCV MCH MCHC RDW Plt Count MPV Neutrophils % Lymphocytes % Monocytes % Eosinophils % Basophils % Sodium 144 Potassium 4.1 Chloride 106 Carbon Dioxide 25 Anion Gap 13 BUN 29 H Creatinine 1.7 H Creat Clearance w eGFR 30.16 POC Glucometer Random Glucose 160 H Hemoglobin A1c % 6.9 H Calcium 9.4 Phosphorus 4.3 Magnesium 1.8 Total Bilirubin 0.6 D AST 21 ALT 16 Alkaline Phosphatase 125 H Creatine Kinase Cancelled 321 H Creatine Kinase Index 3.3 CK-MB (CK-2) 10.756 H Troponin I Cancelled 3.91 H* Total Protein 7.4 Albumin 3.4 Urine Color Urine Appearance Urine pH Ur Specific [place] Urine Protein Urine Glucose (UA) Urine Ketones Urine Blood Urine Nitrite Urine Bilirubin Urine Urobilinogen Ur Leukocyte Esterase Blood Type 11/01/17 11/01/17 11/01/17 06:00 09:40 11:25 WBC RBC Hgb Hct MCV MCH MCHC RDW Plt Count MPV Neutrophils % Lymphocytes % Monocytes % Eosinophils % Basophils % Sodium Potassium Chloride Carbon Dioxide Anion Gap BUN Creatinine Creat Clearance w eGFR POC Glucometer [phone] Random Glucose Hemoglobin A1c % Calcium Phosphorus Magnesium Total Bilirubin AST ALT Alkaline Phosphatase Creatine Kinase Creatine Kinase Index CK-MB (CK-2) Troponin I Total Protein Albumin Urine Color Ltyellow Urine Appearance Slcloudy Urine pH 5.0 Ur Specific [place] 1.010 Urine Protein Negative Urine Glucose (UA) Negative Urine Ketones Negative Urine Blood Negative Urine Nitrite Negative Urine Bilirubin Negative Urine Urobilinogen Negative Ur Leukocyte Esterase Negative Blood Type AB POSITIVE 11/01/17 11/01/17 11/02/17 17:19 17:40 05:56 WBC 13.3 H D 9.7 RBC 4.35 4.15 Hgb 11.6 10.9 Hct 35.3 33.5 MCV 81.0 80.5 MCH 26.8 26.2 MCHC 33.0 32.6 RDW 17.4 H 17.4 H Plt Count 239 214 MPV 10.2 9.6 Neutrophils % 69.1 D Lymphocytes % 22.0 D Monocytes % 8.0 D Eosinophils % 0.5 D Basophils % 0.4 Sodium Potassium Chloride Carbon Dioxide Anion Gap BUN Creatinine Creat Clearance w eGFR POC Glucometer [phone] Random Glucose Hemoglobin A1c % Calcium Phosphorus Magnesium Total Bilirubin AST ALT Alkaline Phosphatase Creatine Kinase Creatine Kinase Index CK-MB (CK-2) Troponin I Total Protein Albumin Urine Color Urine Appearance Urine pH Ur Specific [place] Urine Protein Urine Glucose (UA) Urine Ketones Urine Blood Urine Nitrite Urine Bilirubin Urine Urobilinogen Ur Leukocyte Esterase Blood Type 11/02/17 05:56 WBC RBC Hgb Hct MCV MCH MCHC RDW Plt Count MPV Neutrophils % Lymphocytes % Monocytes % Eosinophils % Basophils % Sodium 143 Potassium 3.9 Chloride 112 H Carbon Dioxide 22 Anion Gap 9 BUN 54 H D Creatinine 2.2 H Creat Clearance w eGFR 22.40 POC Glucometer Random Glucose 100 Hemoglobin A1c % Calcium 8.0 L Phosphorus 3.4 Magnesium 1.8 Total Bilirubin 0.4 D AST 13 L ALT 12 Alkaline Phosphatase 96 Creatine Kinase Creatine Kinase Index CK-MB (CK-2) Troponin I Total Protein 6.1 L Albumin 2.7 L Urine Color Urine Appearance Urine pH Ur Specific [place] Urine Protein Urine Glucose (UA) Urine Ketones Urine Blood Urine Nitrite Urine Bilirubin Urine Urobilinogen Ur Leukocyte Esterase Blood Type Active Medications Generic Name Dose Route Start Last Admin Trade Name Freq PRN Reason Stop Dose Admin Amlodipine Besylate 5 mg 11/02/17 10:00 Norvasc - PO DAILY LEV Chlorhexidine Gluconate 1 applic 11/01/17 22:00 11/01/17 22:02 Hibiclens For Decolonization - TP 1 applic HS LEV Administration Hydralazine HCl 25 mg 11/01/17 22:00 11/02/17 06:29 Apresoline - PO 25 mg TID LEV Administration Sodium Chloride 1,000 mls @ 100 mls/hr 11/02/17 07:52 Normal Saline - IV ASDIR [facility] Insulin Aspart 1 vial 11/01/17 22:00 11/02/17 06:25 Novolog Vial Sliding Scale - SQ Not Given ACHS [facility] Protocol Labetalol HCl 400 mg 11/01/17 22:00 11/01/17 22:04 Normodyne - PO 400 mg BID LEV Administration Levetiracetam 500 mg 11/01/17 22:00 11/01/17 22:07 Keppra Xr - PO 500 mg BID LEV Administration Mirtazapine 15 mg 11/01/17 22:00 11/01/17 22:03 Remeron - PO 15 mg HS LEV Administration Mupirocin 1 applic 11/01/17 22:00 11/01/17 22:01 Bactroban Ointment (For Decolonization) - NS 11/05/17 21:59 1 applic BID LEV Administration Pantoprazole Sodium 40 mg 11/02/17 10:00 Protonix - PO DAILY [facility] ASSESSMENT/PLAN: 1) Pneumothorax --Pigtail inserted and set to -20 wall suction --Plan is to put to gravity and assess four hours later with with CXR --IF four hours later no accumulation of PTX can d/c pigtail --Cardiothoracic surgery on board 2) Acute kidney injury --Discontinued losartan today with increase in creatinine from 1.1 to 2.2 --Consult Nephrology --Avoid nephrotoxic agents --Increased IVF to 100cc/hr NS 3) Elevated Troponin --Suspect due to demand from decreased O2 from PTX --EKG w/o ischemia changes --Dr. Meehan consulted --Echo without wall motion abnormalities noted; normal EF --Continue Labetalol 400mg BID PO 4) HTN --Continue Cozaar 50mg PO qdaily --Continue Hydralazine 25mg PO TID --Norvasc 5mg PO qdaily 5) DM --A1c 6.9% --ISS --BGM ACHS 6) Schizophrenia --Continue Remeron 15mg PO HS FEN: NS @100cc/hr Electrolyte abnormalities: None today Nutrition: Diabetic diet PPX: DVT - Xeralto being held due to bleeding seen near pigtail; SCDs PPX - Protonix 40mg PO qdaily Dispo: Monitor tele Case discussed with Dr. Latha Black, DO - IM PGY-1 Visit type - Emergency Visit Emergency Visit: No - New Patient This patient is new to me today: No - Critical Care Critical Care patient: No
[2017-11-02] MEDS ORDERED: LOSARTAN POTASSIUM 50 MG TABLET (FP) PO SCH (10:00)
[2017-11-02] MEDS: SODIUM CHLORIDE 1,000 ML IV SCH (10:36)
[2017-11-02] MEDS ORDERED: PT OWN MED DRAWER 7, Y5N ONE (10:40)
[2017-11-02] MEDS: MUPIROCIN 2% TOPICAL OINTMENT FOR DECOLONIZATION NS SCH ×2 (10:54→21:53)
--- NOTE | 2017-11-02 10:58 | PN ---
Progress Note, Physician Chief Complaint: Right rib pain Sinus on tele with no events History of Present Illness: 67 year old female with a pmhx of htn, IDDM, schizophrenia, DVT on ac, +tobacco use sent from [facility] for sob last two days. Fell on 10/19/17 on right side. Noted to be hypoxic in ER and found to have right sided pneumothorax s/p pigtail insertion. No chest pain. SOB improved Echo: normal LVEF and mod TR CK 450 Trop 5's EKG: sinus with lvh and lateral changes but no new ischemic changes - Current Medication List Current Medications: Active Medications Amlodipine Besylate (Norvasc -) 5 mg PO DAILY [facility] Chlorhexidine Gluconate (Hibiclens For Decolonization -) 1 applic TP HS [facility] Last Admin: 11/01/17 22:02 Dose: 1 applic Hydralazine HCl (Apresoline -) 25 mg PO TID [facility] Last Admin: 11/02/17 06:29 Dose: 25 mg Sodium Chloride (Normal Saline -) 1,000 mls @ 100 mls/hr IV ASDIR [facility] Insulin Aspart (Novolog Vial Sliding Scale -) 1 vial SQ ACHS [facility] PRN Reason: Protocol Last Admin: 11/02/17 06:25 Dose: Not Given Labetalol HCl (Normodyne -) 400 mg PO BID [facility] Last Admin: 11/01/17 22:04 Dose: 400 mg Levetiracetam (Keppra Xr -) 500 mg PO BID [facility] Last Admin: 11/01/17 22:07 Dose: 500 mg Mirtazapine (Remeron -) 15 mg PO [facility] Last Admin: 11/01/17 22:03 Dose: 15 mg Mupirocin (Bactroban Ointment (For Decolonization) -) 1 applic NS BID [facility] Stop: 11/05/17 21:59 Last Admin: 11/01/17 22:01 Dose: 1 applic Pantoprazole Sodium (Protonix -) 40 mg PO DAILY [facility] - Objective Vital Signs: Vital Signs Temperature 98.0 F 11/02/17 06:00 Pulse Rate 72 11/02/17 08:00 Respiratory Rate 24 11/02/17 08:00 Blood Pressure 130/72 11/02/17 08:00 O2 Sat by Pulse Oximetry (%) 95 11/01/17 21:00 Constitutional: Yes: Other (in pain) Neck: Yes: Supple Cardiovascular: Yes: Regular Rate and Rhythm, S1, S2. No: Bruit, JVD, Murmur Respiratory: Yes: Other (Decreased BS due to effort as pain with deep breath) Gastrointestinal: Yes: Normal Bowel Sounds, Soft Edema: No Labs: CBC, BMP 11/02/17 05:56 11/02/17 05:56 INR, PTT INR 1.48 (0.82-1.09) H 11/01/17 05:15 Problem List - Problems (1) NSTEMI (non-ST elevated myocardial infarction) Code(s): I21.4 - NON-ST ELEVATION (NSTEMI) MYOCARDIAL INFARCTION Assessment/Plan 67 year old female with a pmhx of htn, IDDM, schizophrenia, DVT on ac, +tobacco use sent from [facility] for sob last two days. Fell on 10/19/17 on right side. Noted to be hypoxic in ER and found to have right sided pneumothorax s/p pigtail insertion. No chest pain. SOB improved Echo: normal LVEF and mod TR CK 450 Trop 5's EKG: sinus with lvh and lateral changes but no new ischemic changes 1) NSTEMI -Would treat medical therapy at this time. Patient denies any chest pain and is comfortable at this time. EKG with no new ischemic changes when compared to old ones. Echo with normal LVEF and no new wall motion abnormalities. No events on tele -Continue beta charles Anticoagulation is on hold given chest pigtail and bloody drainage. Restart as per CT surgery -Statin -Fdc aspirin 81mg daily when deemed safe No further cardiac work up at this time. Please call back if needed.
[2017-11-02] MEDS: levETIRAcetam XR 500 MG TAB PO SCH ×2 (10:59→21:53)
[2017-11-02] MEDS: LABETALOL HCL 200 MG TABLET (FP) PO SCH ×2 (11:00→21:54)
[2017-11-02] MEDS: PANTOPRAZOLE 40 MG TABLET (FP) PO SCH (11:00)
[2017-11-02] MEDS: amLODIPine BESYLATE 5 MG TABLET (FP) PO SCH (11:00)
[2017-11-02] MEDS ORDERED: morphine SULFATE 4 MG/ML VIAL IVPUSH ONE (11:14)
[2017-11-02] MEDS: ALBUTEROL SO4 0.083% IH SOL 2.5 MG/3 ML VIAL.NEB. NEB SCH ×3 (12:08→20:15)
--- NOTE | 2017-11-02 12:27 | PN ---
Progress Note (short form) - Note Progress Note: Asked by Dr. Robledo to place patient's CxT to waterseal. CXR to be performed at 16:00 hours. Depending upon interpretation...tube may be dc'd.
--- NOTE | 2017-11-02 13:56 | PN ---
Progress Note (short form) - Note Progress Note: Patient seen and examined in the ICU. Awake and alert. Mild discomfort at the pleural catheter site. Had some SOB earlier that now is better after BD TX. No air leak. CXR: No PTX noted = Intake & Output 10/30/17 10/31/17 11/01/17 11/02/17 23:59 23:59 23:59 23:59 Intake Total 1718 996 Output Total 180 120 0 Balance -180 1598 996 Weight 148 lb 6.4 oz 146 lb 14.4 oz Last Vital Signs Temp Pulse Resp BP Pulse Ox 98.0 F 72 24 130/72 95 11/02/17 06:00 11/02/17 08:00 11/02/17 08:00 11/02/17 08:00 11/01/17 21:00 Active Medications Albuterol Sulfate (Ventolin 0.083% Nebulizer Soln -) 1 amp NEB RQID [facility] Last Admin: 11/02/17 12:08 Dose: 1 amp Amlodipine Besylate (Norvasc -) 5 mg PO DAILY [facility] Last Admin: 11/02/17 11:00 Dose: 5 mg Chlorhexidine Gluconate (Hibiclens For Decolonization -) 1 applic TP HS [facility] Last Admin: 11/01/17 22:02 Dose: 1 applic Hydralazine HCl (Apresoline -) 25 mg PO TID [facility] Last Admin: 11/02/17 06:29 Dose: 25 mg Sodium Chloride (Normal Saline -) 1,000 mls @ 100 mls/hr IV ASDIR [facility] Last Admin: 11/02/17 10:36 Dose: 100 mls/hr Insulin Aspart (Novolog Vial Sliding Scale -) 1 vial SQ ACHS [facility] PRN Reason: Protocol Last Admin: 11/02/17 12:39 Dose: 2 units Labetalol HCl (Normodyne -) 400 mg PO BID [facility] Last Admin: 11/02/17 11:00 Dose: 400 mg Levetiracetam (Keppra Xr -) 500 mg PO BID [facility] Last Admin: 11/02/17 10:59 Dose: 500 mg Mirtazapine (Remeron -) 15 mg PO HS [facility] Last Admin: 11/01/17 22:03 Dose: 15 mg Mupirocin (Bactroban Ointment (For Decolonization) -) 1 applic NS BID [facility] Stop: 11/05/17 21:59 Last Admin: 11/01/17 22:01 Dose: 1 applic Pantoprazole Sodium (Protonix -) 40 mg PO DAILY [facility] Last Admin: 11/02/17 11:00 Dose: 40 mg Constitutional: Yes: Well Nourished, No Distress Eyes: Yes: WNL, PERRL HENT: Yes: Atraumatic, Normocephalic Neck: Yes: Trachea Midline Cardiovascular: Yes: Regular Rate and Rhythm, S1, S2 Respiratory: Yes: right pleural catheter, few basilar rhonhci Gastrointestinal: Yes: Normal Bowel Sounds, Soft Renal/: Yes: Meyer Present Extremities: Yes: WNL Edema: No Peripheral Pulses WNL: Yes Neurological: Yes: tremor Psychiatric: Yes: Oriented Labs: Laboratory Results - last 24 hr 11/01/17 11/01/17 11/02/17 17:19 17:40 05:56 WBC 13.3 H D 9.7 RBC 4.35 4.15 Hgb 11.6 10.9 Hct 35.3 33.5 MCV 81.0 80.5 MCH 26.8 26.2 MCHC 33.0 32.6 RDW 17.4 H 17.4 H Plt Count 239 214 MPV 10.2 9.6 Neutrophils % 69.1 D Lymphocytes % 22.0 D Monocytes % 8.0 D Eosinophils % 0.5 D Basophils % 0.4 Sodium Potassium Chloride Carbon Dioxide Anion Gap BUN Creatinine Creat Clearance w eGFR POC Glucometer [phone] Random Glucose Calcium Phosphorus Magnesium Total Bilirubin AST ALT Alkaline Phosphatase Total Protein Albumin 11/02/17 05:56 WBC RBC Hgb Hct MCV MCH MCHC RDW Plt Count MPV Neutrophils % Lymphocytes % Monocytes % Eosinophils % Basophils % Sodium 143 Potassium 3.9 Chloride 112 H Carbon Dioxide 22 Anion Gap 9 BUN 54 H D Creatinine 2.2 H Creat Clearance w eGFR 22.40 POC Glucometer Random Glucose 100 Calcium 8.0 L Phosphorus 3.4 Magnesium 1.8 Total Bilirubin 0.4 D AST 13 L ALT 12 Alkaline Phosphatase 96 Total Protein 6.1 L Albumin 2.7 L Problem List - Problems (1) Hypoxemia Code(s): R09.02 - HYPOXEMIA (2) NSTEMI (non-ST elevated myocardial infarction) Code(s): I21.4 - NON-ST ELEVATION (NSTEMI) MYOCARDIAL INFARCTION (3) Pneumothorax Code(s): J93.9 - PNEUMOTHORAX, UNSPECIFIED (4) Altered mental status Code(s): R41.82 - ALTERED MENTAL STATUS, UNSPECIFIED Qualifiers: Altered mental status type: somnolence Qualified Code(s): R40.0 - Somnolence (5) Contusion Code(s): T14.8 - OTHER INJURY OF UNSPECIFIED BODY REGION * DO NOT USE * Qualifiers: Encounter type: initial encounter Contusion area: knee Laterality: left Qualified Code(s): S80.02XA - Contusion of left knee, initial encounter (6) Fall Code(s): W19.XXXA - UNSPECIFIED FALL, INITIAL ENCOUNTER Qualifiers: Encounter type: initial encounter Qualified Code(s): W19.XXXA - Unspecified fall, initial encounter Assessment/Plan Supplemental O2 Monitor CT drainage Repeat CXR at 4PM and D/C pigtail if no PTX Incentive spirometry Pulmonary toilet PO as tolerated Daily CXR while pleural catheter is in place Pain control SCDs Telemetry monitoring Dr Brown
[2017-11-02] MEDS: CHLORHEXIDINE GLUCONATE 4% CLEANSER FOR DECOLONIZATION TP SCH (21:53)
[2017-11-02] MEDS: MIRTAZAPINE 15 MG TABLET (FP) PO SCH (21:54)
[2017-11-03 06:37] LABS: ANION GAP 6 (8-16); BLOOD UREA NITROGEN 60 mg/dL (7-18); CALCIUM 7.9 mg/dL (8.5-10.1); CHLORIDE 114 mmol/L (98-107); CO2 24 mmol/L (21-32); CREATININE 1.8 mg/dL (0.55-1.02); GLUCOSE,RANDOM 101 mg/dL (74-106); POTASSIUM 4.1 mmol/L (3.5-5.1); SODIUM 144 mmol/L (136-145)
[2017-11-03] MEDS: ALBUTEROL SO4 0.083% IH SOL 2.5 MG/3 ML VIAL.NEB. NEB SCH ×4 (07:01→21:30)
[2017-11-03] MEDS: INSULIN SLIDING SCALE (NOVOLOG) 1 VIAL SQ SCH ×4 (07:17→21:48)
[2017-11-03] MEDS: hydrALAZINE HCL 25 MG TABLET (FP) PO SCH ×3 (07:23→21:40)
[2017-11-03] MEDS: amLODIPine BESYLATE 5 MG TABLET (FP) PO SCH (09:29)
[2017-11-03] MEDS: levETIRAcetam XR 500 MG TAB PO SCH ×2 (09:29→21:41)
[2017-11-03] MEDS: LABETALOL HCL 200 MG TABLET (FP) PO SCH ×2 (09:29→21:40)
[2017-11-03] MEDS: PANTOPRAZOLE 40 MG TABLET (FP) PO SCH (09:30)
[2017-11-03] MEDS: MUPIROCIN 2% TOPICAL OINTMENT FOR DECOLONIZATION NS SCH (09:32)
--- NOTE | 2017-11-03 10:04 | PN ---
Progress Note (short form) - Note Progress Note: Patient seen and examined in the Telemetry unit. Reports that her breathing is stable today, but not her normal. CT was placed back on suction yesterday as Right PTX increased in size on water seal. No CXR this AM. Intake & Output 10/31/17 11/01/17 11/02/17 11/03/17 23:59 23:59 23:59 23:59 Intake Total 1718 2196 1000 Output Total 180 120 0 230 Balance -180 1598 2196 770 Weight 148 lb 6.4 oz 146 lb 14.4 oz 146 lb 155 lb 13.869 oz Last Vital Signs Temp Pulse Resp BP Pulse Ox 98.4 F 60 18 127/73 98 11/03/17 06:00 11/03/17 08:02 11/03/17 08:02 11/03/17 08:02 11/03/17 08:00 Active Medications Albuterol Sulfate (Ventolin 0.083% Nebulizer Soln -) 1 amp NEB RQID [facility] Last Admin: 11/03/17 07:01 Dose: 1 amp Amlodipine Besylate (Norvasc -) 5 mg PO DAILY [facility] Last Admin: 11/03/17 09:29 Dose: 5 mg Chlorhexidine Gluconate (Hibiclens For Decolonization -) 1 applic TP [facility] Last Admin: 11/02/17 21:53 Dose: 1 applic Hydralazine HCl (Apresoline -) 25 mg PO TID [facility] Last Admin: 11/03/17 07:23 Dose: 25 mg Sodium Chloride (Normal Saline -) 1,000 mls @ 100 mls/hr IV ASDIR [facility] Last Admin: 11/02/17 10:36 Dose: 100 mls/hr Insulin Aspart (Novolog Vial Sliding Scale -) 1 vial SQ ACHS [facility] PRN Reason: Protocol Last Admin: 11/03/17 07:17 Dose: Not Given Labetalol HCl (Normodyne -) 400 mg PO BID [facility] Last Admin: 11/03/17 09:29 Dose: 400 mg Levetiracetam (Keppra Xr -) 500 mg PO BID [facility] Last Admin: 11/03/17 09:29 Dose: 500 mg Mirtazapine (Remeron -) 15 mg PO HS [facility] Last Admin: 11/02/17 21:54 Dose: 15 mg Mupirocin (Bactroban Ointment (For Decolonization) -) 1 applic NS BID [facility] Stop: 11/05/17 21:59 Last Admin: 11/03/17 09:32 Dose: Not Given Pantoprazole Sodium (Protonix -) 40 mg PO DAILY [facility] Last Admin: 11/03/17 09:30 Dose: 40 mg Constitutional: Yes: Well Nourished, No Distress Eyes: Yes: WNL, PERRL HENT: Yes: Atraumatic, Normocephalic Neck: Yes: Trachea Midline Cardiovascular: Yes: Regular Rate and Rhythm, S1, S2 Respiratory: Yes: right pleural catheter, few basilar rhonhci Gastrointestinal: Yes: Normal Bowel Sounds, Soft Renal/: Yes: Meyer Present Extremities: Yes: WNL Edema: No Peripheral Pulses WNL: Yes Neurological: Yes: tremor Psychiatric: Yes: Oriented Labs: Laboratory Results - last 24 hr 11/03/17 05:40 Sodium 144 Potassium 4.1 Chloride 114 H Carbon Dioxide 24 Anion Gap 6 L BUN 60 H Creatinine 1.8 H Random Glucose 101 Calcium 7.9 L Problem List - Problems (1) Hypoxemia Code(s): R09.02 - HYPOXEMIA (2) NSTEMI (non-ST elevated myocardial infarction) Code(s): I21.4 - NON-ST ELEVATION (NSTEMI) MYOCARDIAL INFARCTION (3) Pneumothorax Code(s): J93.9 - PNEUMOTHORAX, UNSPECIFIED (4) Altered mental status Code(s): R41.82 - ALTERED MENTAL STATUS, UNSPECIFIED Qualifiers: Altered mental status type: somnolence Qualified Code(s): R40.0 - Somnolence (5) Contusion Code(s): T14.8 - OTHER INJURY OF UNSPECIFIED BODY REGION * DO NOT USE * Qualifiers: Encounter type: initial encounter Contusion area: knee Laterality: left Qualified Code(s): S80.02XA - Contusion of left knee, initial encounter (6) Fall Code(s): W19.XXXA - UNSPECIFIED FALL, INITIAL ENCOUNTER Qualifiers: Encounter type: initial encounter Qualified Code(s): W19.XXXA - Unspecified fall, initial encounter Assessment/Plan Check CXR: if no PTX: another trial of water seal Supplemental O2 Monitor CT drainage Incentive spirometry Pulmonary toilet PO as tolerated Daily CXR while pleural catheter is in place Pain control SCDs Telemetry monitoring Dr Brown
--- NOTE | 2017-11-03 14:37 | CONSULT ---
Consult Consult Specialty:: Nephrology ( Navin/ Anibal) Reason for Consultation:: Worsening renal functions - Past Medical History Cardio/Vascular: Yes: HTN Psych: Yes: Schizophrenia Endocrine: Yes: Diabetes Mellitus - Alcohol/Substance Use Hx Alcohol Use: No - Smoking History Smoking history: Current some day smoker Have you smoked in the past 12 months: Yes Aproximately how many cigarettes per day: 5 Home Medications - Allergies Allergies/Adverse Reactions: Allergies Allergy/AdvReac Type Severity Reaction Status Date / Time No Known Allergies Allergy Verified 10/31/17 15:42 - Home Medications Home Medications: Ambulatory Orders Amlodipine Besylate [Norvasc -] 5 mg PO DAILY 01/28/14 Labetalol HCl [Normodyne -] 400 mg PO Q12H 01/28/14 Levetiracetam [Levetiracetam ER] 500 mg PO BID 01/28/14 Losartan Potassium 50 mg PO DAILY 01/28/14 Acetaminophen [Mapap] 650 mg PO BID 07/16/16 Insulin Lispro [Humalog] 4 unit SQ TID 07/16/16 Mirtazapine [Remeron -] 15 mg PO HS 07/16/16 Pantoprazole Sodium 40 mg PO DAILY 07/16/16 hydrALAZINE HCL [Apresoline -] 25 mg PO TID 07/16/16 Rivaroxaban [Xarelto -] 20 mg PO DAILY 07/17/16 Review of Systems - Review of Systems Cardiovascular: reports: Chest Pain (on deep breathig, mostly on the right side. ) Respiratory: reports: Cough, SOB, SOB on Exertion Gastrointestinal: reports: Bloating Neurological: reports: Confusion, Headache Psychiatric: reports: Other (schizophrenia) Physical Exam Vital Signs: Vital Signs Temperature 98.4 F 11/03/17 06:00 Pulse Rate 72 11/03/17 13:23 Respiratory Rate 18 11/03/17 13:23 Blood Pressure 134/78 11/03/17 13:23 O2 Sat by Pulse Oximetry (%) 98 11/03/17 08:00 Constitutional: Yes: Anxious Eyes: Yes: Conjunctiva Clear HENT: Yes: Normocephalic Neck: Yes: Trachea Midline Cardiovascular: Yes: S1, S2 Respiratory: Yes: Cough, Diminished, Hyperresonant, On Nasal O2, Poor Air Entry , Rhonchi, Other (Chest tube in place on the right side.) Gastrointestinal: Yes: Normal Bowel Sounds Renal/: Yes: Other (patient is incontinent.). No: CVA Tenderness - Left, CVA Tenderness - Right Edema: No Neurological: Yes: Alert Psychiatric: Yes: Alert. No: Agitated Labs: CBC, BMP 11/02/17 05:56 11/03/17 05:40 Problem List - Problems (1) Acute kidney failure Code(s): N17.9 - ACUTE KIDNEY FAILURE, UNSPECIFIED (2) Pneumothorax Code(s): J93.9 - PNEUMOTHORAX, UNSPECIFIED (3) Contusion Code(s): T14.8 - OTHER INJURY OF UNSPECIFIED BODY REGION * DO NOT USE * Qualifiers: Encounter type: initial encounter Contusion area: knee Laterality: left Qualified Code(s): S80.02XA - Contusion of left knee, initial encounter (4) Hypertension Code(s): I10 - ESSENTIAL (PRIMARY) HYPERTENSION Assessment/Plan 67 yr old woman with HTN, IDDM, Schizophrenia, smoker from [facility] ( nursing home resident) for acute shortness of breath. Says she was walking from her bed to the bathroom when she started to have trouble breathing, her roommate called for help and 911 was called. Denies chest pain, dizziness, lightheadedness, vomiting, abdominal pain, headache, syncope. She fell on 10/19/2017 on her right side and was initially seen in [facility]. The patient was noted to have a right sided Pneumothorax, and a chest tube was placed. Renal functions were slowly worsening over the past few days. The Serum Creatinine has risen from 1.5 to 2.2 and now 1.8 mg/dL . The etiology of the DEZ seems to be the unstable Hemodynamic status. The renal functions are tending to improve. Expected to improve to her baseline over time. 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 The rationale behind use of Normodyne for BP control is not clear. Will continue the IV fluids as ordered. Will monitor the renal functions with you. Thank you. Kayla Holden MD
--- NOTE | 2017-11-03 16:34 | PN ---
Progress Note (short form) - Note Progress Note: Patient is comfortable with no acute distress. Vital Signs Temperature 97.8 F 11/03/17 14:41 Pulse Rate 72 11/03/17 16:13 Respiratory Rate 22 11/03/17 16:13 Blood Pressure 147/70 11/03/17 16:13 O2 Sat by Pulse Oximetry (%) 98 11/03/17 08:00 GENERAL: NAD, awake, alert, kyphotic and sitting at bedside HEENT: NC/AT, EOMI, FIGUEROA, moist mucosa LUNGS: CTA with poor inspiratory effort noted, pigtail attached with sutures with serous drainage in pleurex device. No leak observed even with cough; Canister on -20 suction HEART: RRR, S1, S2 without murmur ABDOMEN: Soft, nontender, nondistended, normoactive bowel sounds, no guarding EXTREMITIES: 2+ DP pulses, warm, no edema. CBCD WBC 9.7 K/mm3 (4.0-10.0) 11/02/17 05:56 RBC 4.15 M/mm3 (3.60-5.2) 11/02/17 05:56 Hgb 10.9 GM/dL (10.7-15.3) 11/02/17 05:56 Hct 33.5 % (32.4-45.2) 11/02/17 05:56 MCV 80.5 fl (80-96) 11/02/17 05:56 MCHC 32.6 g/dl (32.0-36.0) 11/02/17 05:56 RDW 17.4 % (11.6-15.6) H 11/02/17 05:56 Plt Count 214 K/MM3 (134-434) 11/02/17 05:56 MPV 9.6 fl (7.5-11.1) 11/02/17 05:56 CMP Sodium 144 mmol/L (136-145) 11/03/17 05:40 Potassium 4.1 mmol/L (3.5-5.1) 11/03/17 05:40 Chloride 114 mmol/L (98-107) H 11/03/17 05:40 Carbon Dioxide 24 mmol/L (21-32) 11/03/17 05:40 Anion Gap 6 (8-16) L 11/03/17 05:40 BUN 60 mg/dL (7-18) H 11/03/17 05:40 Creatinine 1.8 mg/dL (0.55-1.02) H 11/03/17 05:40 Creat Clearance w eGFR 22.40 (>60) 11/02/17 05:56 Random Glucose 101 mg/dL (74-106) 11/03/17 05:40 Calcium 7.9 mg/dL (8.5-10.1) L 11/03/17 05:40 Total Bilirubin 0.4 mg/dL (0.2-1.0) D 11/02/17 05:56 AST 13 U/L (15-37) L 11/02/17 05:56 ALT 12 U/L (12-78) 11/02/17 05:56 Alkaline Phosphatase 96 U/L (45-117) 11/02/17 05:56 Total Protein 6.1 g/dl (6.4-8.2) L 11/02/17 05:56 Albumin 2.7 g/dl (3.4-5.0) L 11/02/17 05:56 CARDIAC ENZYMES Creatine Kinase 321 IU/L (26-192) H 11/01/17 05:15 Troponin I 3.91 ng/ml (0.00-0.05) H* 11/01/17 05:15 Current Medications Generic Name Dose Route Start Last Admin Trade Name Freq PRN Reason Stop Dose Admin Albuterol Sulfate 1 amp 11/02/17 12:00 11/03/17 16:14 Ventolin 0.083% Nebulizer Soln - NEB 1 amp RQID LEV Administration Amlodipine Besylate 5 mg 11/02/17 10:00 11/03/17 09:29 Norvasc - PO 5 mg DAILY LEV Administration Chlorhexidine Gluconate 1 applic 11/01/17 22:00 11/02/17 21:53 Hibiclens For Decolonization - TP 1 applic HS LEV Administration Hydralazine HCl 25 mg 11/01/17 22:00 11/03/17 13:21 Apresoline - PO 25 mg TID LEV Administration Sodium Chloride 1,000 mls @ 100 mls/hr 11/02/17 07:52 11/02/17 10:36 Normal Saline - IV 100 mls/hr ASDIR LEV Administration Insulin Aspart 1 vial 11/01/17 22:00 11/03/17 16:12 Novolog Vial Sliding Scale - SQ Not Given ACHS [facility] Protocol Labetalol HCl 400 mg 11/01/17 22:00 11/03/17 09:29 Normodyne - PO 400 mg BID LEV Administration Levetiracetam 500 mg 11/01/17 22:00 11/03/17 09:29 Keppra Xr - PO 500 mg BID LEV Administration Mirtazapine 15 mg 11/01/17 22:00 11/02/17 21:54 Remeron - PO 15 mg HS LEV Administration Mupirocin 1 applic 11/01/17 22:00 11/03/17 09:32 Bactroban Ointment (For Decolonization) - NS 11/05/17 21:59 Not Given BID LEV Pantoprazole Sodium 40 mg 11/02/17 10:00 11/03/17 09:30 Protonix - PO 40 mg DAILY LEV Administration Home Medications Medication Instructions Recorded Amlodipine Besylate [Norvasc -] 5 mg PO DAILY 01/28/14 Labetalol HCl [Normodyne -] 400 mg PO Q12H 01/28/14 Levetiracetam [Levetiracetam ER] 500 mg PO BID 01/28/14 Losartan Potassium 50 mg PO DAILY 01/28/14 Acetaminophen [Mapap] 650 mg PO BID 07/16/16 Insulin Lispro [Humalog] 4 unit SQ TID 07/16/16 Mirtazapine [Remeron -] 15 mg PO HS 07/16/16 Pantoprazole Sodium 40 mg PO DAILY 07/16/16 hydrALAZINE HCL [Apresoline -] 25 mg PO TID 07/16/16 Rivaroxaban [Xarelto -] 20 mg PO DAILY 07/17/16 ASSESSMENT AND PLAN: Patient is a 67 yr old female with pmhx of HTN, current every day smoker presents with spontanous right sided penumothorax likely due to mechanical fall few days ago s/p pigtail insertion admitted to ICU for further management. #Acute Pneumothorax s/p pigtail insertion in ED., serosangeonous drainage , continue suction on chest tube . waterseal for am if possible . hold off on Xarelto . # Elevated troponin most likely due to demand ischemia, less likely to be ACS. No ischemic ekg changes, pt denies chest pain # Hx of DVT ;as per chart review, in 2017 pt had a DVT and was treated with xarelto,, and is not clear why she was continued on Xarelto. #HTN continue home meds losartan, labetalol, norvasc, hydralazine #schizophrenia continue remeron #T2DM - bgm ACHS, NISS, get A1c in the AM #smoking cessation, pt declined nicotine patch, counseling offered # ON Keppra, not sure why?? #DVT ppx : as per Cardiothoracic surgeon to hold off on xarelto or heparin since having serosinguiness drainage. pt has three children, two sons and a daughter. son Yaa is who she told me would like to make decisions for her if she is unable to do so herself, he is in [place]. Her daughter is in [place], the 2nd son is in [place] but appears that she has not seen him in a long time. denies being . Visit type - Emergency Visit Emergency Visit: Yes ED Registration Date: 10/31/17 Care time: The patient presented to the Emergency Department on the above date and was hospitalized for further evaluation of their emergent condition. - New Patient This patient is new to me today: No - Critical Care Critical Care patient: No - Discharge Referral Referred to [facility] No
[2017-11-03] MEDS: SODIUM CHLORIDE 1,000 ML IV SCH (17:23)
[2017-11-03] MEDS ORDERED: PT OWN MED DRAWER 7, Y5N ONE (21:28)
[2017-11-03] MEDS: MIRTAZAPINE 15 MG TABLET (FP) PO SCH (21:40)
[2017-11-04] MEDS: hydrALAZINE HCL 25 MG TABLET (FP) PO SCH ×3 (06:19→21:48)
[2017-11-04] MEDS: INSULIN SLIDING SCALE (NOVOLOG) 1 VIAL SQ SCH ×4 (06:19→21:49)
[2017-11-04] MEDS: SODIUM CHLORIDE 1,000 ML IV SCH (06:57)
[2017-11-04 07:02] LABS: ALBUMIN 3.1 g/dl (3.4-5.0); BILIRUBIN,TOTAL 0.5 mg/dL (0.2-1.0); BLOOD UREA NITROGEN 53 mg/dL (7-18); CHLORIDE 113 mmol/L (98-107); CREATININE 1.7 mg/dL (0.55-1.02); POTASSIUM 3.9 mmol/L (3.5-5.1); SGOT/AST 12 U/L (15-37); SGPT/ALT 14 U/L (12-78); SODIUM 145 mmol/L (136-145); TOT PROT 6.8 g/dl (6.4-8.2)
[2017-11-04 07:05] LABS: ALK PHOS 107 U/L (45-117); ANION GAP 7 (8-16); CALCIUM 8.3 mg/dL (8.5-10.1); CO2 25 mmol/L (21-32); GLUCOSE,RANDOM 95 mg/dL (74-106); MAGNESIUM 1.8 mg/dL (1.8-2.4)
[2017-11-04 07:09] LABS: URIC ACID 7.7 mg/dL (2.6-7.2)
[2017-11-04] MEDS: PANTOPRAZOLE 40 MG TABLET (FP) PO SCH (09:03)
[2017-11-04] MEDS: amLODIPine BESYLATE 5 MG TABLET (FP) PO SCH (09:04)
[2017-11-04] MEDS: LABETALOL HCL 200 MG TABLET (FP) PO SCH ×2 (09:04→21:48)
[2017-11-04] MEDS: levETIRAcetam XR 500 MG TAB PO SCH ×2 (09:05→21:49)
[2017-11-04] MEDS: ALBUTEROL SO4 0.083% IH SOL 2.5 MG/3 ML VIAL.NEB. NEB SCH ×4 (09:29→19:55)
--- NOTE | 2017-11-04 10:16 | PN ---
<Adams Black - Last Filed: 11/04/17 13:13> Physical Exam: SUBJECTIVE: Pt's HPI limited. Pt remains on low wall suction with pleurex container 266cc drainage noted. Pt has poor effort with incentive spirometer noted at 250. Denies any new complaints today. OBJECTIVE: Vital Signs Period Temp Pulse Resp BP Sys/Miller Pulse Ox Last 24 Hr 97.8 F-98.4 F 68-80 18-22 123-180/59-84 98-99 GENERAL: NAD, awake, alert, kyphotic and eating at bedside HEENT: NC/AT, EOMI, FIGUEROA, moist mucosa LUNGS: Crackles bibasillarly noted with poor inspiratory effort, pigtail catheter intact. No leak remains; Canister on low wall suction HEART: RRR, S1, S2 without murmur ABDOMEN: Soft, nontender, nondistended, normoactive bowel sounds, no guarding EXTREMITIES: 2+ DP pulses, warm, no edema. Laboratory Results - last 24 hr 11/01/17 11/02/17 11/02/17 22:16 05:47 12:37 Sodium Potassium Chloride Carbon Dioxide Anion Gap BUN Creatinine Creat Clearance w eGFR POC Glucometer 133.34536 125.55494 163.56839 Random Glucose Uric Acid Calcium Phosphorus Magnesium Total Bilirubin AST ALT Alkaline Phosphatase Total Protein Albumin 11/02/17 11/02/17 11/04/17 17:36 23:17 05:45 Sodium 145 Potassium 3.9 Chloride 113 H Carbon Dioxide 25 Anion Gap 7 L BUN 53 H Creatinine 1.7 H Creat Clearance w eGFR 30.16 POC Glucometer 129.60016 139.64229 Random Glucose 95 Uric Acid 7.7 H Calcium 8.3 L Phosphorus 4.0 Magnesium 1.8 Total Bilirubin 0.5 D AST 12 L ALT 14 Alkaline Phosphatase 107 Total Protein 6.8 Albumin 3.1 L Active Medications Generic Name Dose Route Start Last Admin Trade Name Freq PRN Reason Stop Dose Admin Albuterol Sulfate 1 amp 11/02/17 12:00 11/04/17 09:29 Ventolin 0.083% Nebulizer Soln - NEB 1 amp RQID LEV Administration Amlodipine Besylate 5 mg 11/02/17 10:00 11/04/17 09:04 Norvasc - PO 5 mg DAILY LEV Administration Hydralazine HCl 25 mg 11/01/17 22:00 11/04/17 06:19 Apresoline - PO 25 mg TID LEV Administration Insulin Aspart 1 vial 11/01/17 22:00 11/04/17 06:19 Novolog Vial Sliding Scale - SQ Not Given ACHS [facility] Protocol Labetalol HCl 400 mg 11/01/17 22:00 11/04/17 09:04 Normodyne - PO 400 mg BID LEV Administration Levetiracetam 500 mg 11/01/17 22:00 11/04/17 09:05 Keppra Xr - PO 500 mg BID LEV Administration Mirtazapine 15 mg 11/01/17 22:00 11/03/17 21:40 Remeron - PO 15 mg HS LEV Administration Pantoprazole Sodium 40 mg 11/02/17 10:00 11/04/17 09:03 Protonix - PO 40 mg DAILY LEV Administration ASSESSMENT/PLAN: 1) Pneumothorax --Pigtail inserted and set to low wall suction --Dr. Brown spoke to CT surgeon who recommends keeping pt on low wall suction and trying water seal tomorrow AM once again --CXR today showing Apical R PTX stable and small in size --Cardiothoracic surgery on board --Encourage IS usage to prevent atelectatic changes 2) Acute kidney injury --Cr decreasing now --HCTZ remains discontinued --Nephrology recommendations appreciated; thank you --Avoid nephrotoxic agents --Discontinue fluids due to crackles noted on exam 3) Elevated Troponin --Suspect due to demand from decreased O2 from PTX --EKG w/o ischemia changes --Dr. Meehan consulted --Echo without wall motion abnormalities noted; normal EF --Continue Labetalol 400mg BID PO 4) HTN --Continue Cozaar 50mg PO qdaily --Continue Hydralazine 25mg PO TID --Norvasc 5mg PO qdaily 5) DM --A1c 6.9% --ISS --BGM ACHS 6) Schizophrenia --Continue Remeron 15mg PO HS FEN: Avoid fluids; crackles noted today Electrolyte abnormalities: None today Nutrition: Diabetic diet continues PPX: DVT - Xeralto being held due to bleeding seen near pigtail; SCDs PPX - Protonix 40mg PO qdaily Dispo: Monitor tele Case discussed with Dr. Latha Black, DO - IM PGY-1 Visit type - Emergency Visit Emergency Visit: No - New Patient This patient is new to me today: No - Critical Care Critical Care patient: No <Nahid Azul - Last Filed: 11/04/17 19:05> Physical Exam: Waterseal in am if stable with possible discharge. Xarelto is off due to serasenganous fluid Vital Signs Temperature 99 F 11/04/17 15:42 Pulse Rate 64 11/04/17 15:42 Respiratory Rate 18 11/04/17 15:42 Blood Pressure 140/76 11/04/17 15:42 O2 Sat by Pulse Oximetry (%) 96 11/04/17 09:00 CBCD WBC 6.2 K/mm3 (4.0-10.0) D 11/04/17 14:36 RBC 4.04 M/mm3 (3.60-5.2) 11/04/17 14:36 Hgb 10.9 GM/dL (10.7-15.3) 11/04/17 14:36 Hct 32.9 % (32.4-45.2) 11/04/17 14:36 MCV 81.5 fl (80-96) 11/04/17 14:36 MCHC 33.0 g/dl (32.0-36.0) 11/04/17 14:36 RDW 17.5 % (11.6-15.6) H 11/04/17 14:36 Plt Count 183 K/MM3 (134-434) 11/04/17 14:36 MPV 8.9 fl (7.5-11.1) 11/04/17 14:36 CMP Sodium 145 mmol/L (136-145) 11/04/17 05:45 Potassium 3.9 mmol/L (3.5-5.1) 11/04/17 05:45 Chloride 113 mmol/L (98-107) H 11/04/17 05:45 Carbon Dioxide 25 mmol/L (21-32) 11/04/17 05:45 Anion Gap 7 (8-16) L 11/04/17 05:45 BUN 53 mg/dL (7-18) H 11/04/17 05:45 Creatinine 1.7 mg/dL (0.55-1.02) H 11/04/17 05:45 Creat Clearance w eGFR 30.16 (>60) 11/04/17 05:45 Random Glucose 95 mg/dL (74-106) 11/04/17 05:45 Calcium 8.3 mg/dL (8.5-10.1) L 11/04/17 05:45 Total Bilirubin 0.5 mg/dL (0.2-1.0) D 11/04/17 05:45 AST 12 U/L (15-37) L 11/04/17 05:45 ALT 14 U/L (12-78) 11/04/17 05:45 Alkaline Phosphatase 107 U/L (45-117) 11/04/17 05:45 Total Protein 6.8 g/dl (6.4-8.2) 11/04/17 05:45 Albumin 3.1 g/dl (3.4-5.0) L 11/04/17 05:45 CARDIAC ENZYMES Creatine Kinase 321 IU/L (26-192) H 11/01/17 05:15 Troponin I 3.91 ng/ml (0.00-0.05) H* 11/01/17 05:15 Current Medications Generic Name Dose Route Start Last Admin Trade Name Freq PRN Reason Stop Dose Admin Albuterol Sulfate 1 amp 11/02/17 12:00 11/04/17 15:43 Ventolin 0.083% Nebulizer Soln - NEB 1 amp RQID LEV Administration Amlodipine Besylate 5 mg 11/02/17 10:00 11/04/17 09:04 Norvasc - PO 5 mg DAILY LEV Administration Hydralazine HCl 25 mg 11/01/17 22:00 11/04/17 13:09 Apresoline - PO 25 mg TID LEV Administration Insulin Aspart 1 vial 11/01/17 22:00 11/04/17 16:01 Novolog Vial Sliding Scale - SQ Not Given ACHS LEV Protocol Labetalol HCl 400 mg 11/01/17 22:00 11/04/17 09:04 Normodyne - PO 400 mg BID LEV Administration Levetiracetam 500 mg 11/01/17 22:00 11/04/17 09:05 Keppra Xr - PO 500 mg BID LEV Administration Mirtazapine 15 mg 11/01/17 22:00 11/03/17 21:40 Remeron - PO 15 mg HS LEV Administration Pantoprazole Sodium 40 mg 11/02/17 10:00 11/04/17 09:03 Protonix - PO 40 mg DAILY LEV Administration Home Medications Medication Instructions Recorded Amlodipine Besylate [Norvasc -] 5 mg PO DAILY 01/28/14 Labetalol HCl [Normodyne -] 400 mg PO Q12H 01/28/14 Levetiracetam [Levetiracetam ER] 500 mg PO BID 01/28/14 Losartan Potassium 50 mg PO DAILY 01/28/14 Acetaminophen [Mapap] 650 mg PO BID 07/16/16 Insulin Lispro [Humalog] 4 unit SQ TID 07/16/16 Mirtazapine [Remeron -] 15 mg PO HS 07/16/16 Pantoprazole Sodium 40 mg PO DAILY 07/16/16 hydrALAZINE HCL [Apresoline -] 25 mg PO TID 07/16/16 Rivaroxaban [Xarelto -] 20 mg PO DAILY 07/17/16
[2017-11-04] MEDS ORDERED: PT OWN MED DRAWER 7, Y5N ONE (10:23)
--- NOTE | 2017-11-04 10:25 | PN ---
Progress Note (short form) - Note Progress Note: Patient seen and examined in the Telemetry unit. Reports that her breathing is stable today. Doing very poorly with the Incentive Spirometer, only 250. Pleural catheter remains on suction. CXR: Pending Intake & Output 11/01/17 11/02/17 11/03/17 11/04/17 23:59 23:59 23:59 23:59 Intake Total 1718 2196 3000 700 Output Total 120 0 255 0 Balance 1598 2196 2745 700 Weight 146 lb 14.4 oz 146 lb 155 lb 13.869 oz Last Vital Signs Temp Pulse Resp BP Pulse Ox 98.4 F 72 18 180/64 99 11/04/17 06:00 11/04/17 08:24 11/04/17 08:24 11/04/17 08:24 11/03/17 21:00 Active Medications Albuterol Sulfate (Ventolin 0.083% Nebulizer Soln -) 1 amp NEB RQID [facility] Last Admin: 11/04/17 09:29 Dose: 1 amp Amlodipine Besylate (Norvasc -) 5 mg PO DAILY [facility] Last Admin: 11/04/17 09:04 Dose: 5 mg Hydralazine HCl (Apresoline -) 25 mg PO TID [facility] Last Admin: 11/04/17 06:19 Dose: 25 mg Insulin Aspart (Novolog Vial Sliding Scale -) 1 vial SQ ACHS [facility] PRN Reason: Protocol Last Admin: 11/04/17 06:19 Dose: Not Given Labetalol HCl (Normodyne -) 400 mg PO BID [facility] Last Admin: 11/04/17 09:04 Dose: 400 mg Levetiracetam (Keppra Xr -) 500 mg PO BID [facility] Last Admin: 11/04/17 09:05 Dose: 500 mg Mirtazapine (Remeron -) 15 mg PO HS [facility] Last Admin: 11/03/17 21:40 Dose: 15 mg Pantoprazole Sodium (Protonix -) 40 mg PO DAILY [facility] Last Admin: 11/04/17 09:03 Dose: 40 mg Constitutional: Yes: Well Nourished, No Distress Eyes: Yes: WNL, PERRL HENT: Yes: Atraumatic, Normocephalic Neck: Yes: Trachea Midline Cardiovascular: Yes: Regular Rate and Rhythm, S1, S2 Respiratory: Yes: right pleural catheter, few basilar rhonhci Gastrointestinal: Yes: Normal Bowel Sounds, Soft Renal/: Yes: Meyer Present Extremities: Yes: WNL Edema: No Peripheral Pulses WNL: Yes Neurological: Yes: tremor Psychiatric: Yes: Oriented Labs: Laboratory Results - last 24 hr 11/01/17 11/02/17 11/02/17 22:16 05:47 12:37 Sodium Potassium Chloride Carbon Dioxide Anion Gap BUN Creatinine Creat Clearance w eGFR POC Glucometer 133.46476 125.64725 163.04917 Random Glucose Uric Acid Calcium Phosphorus Magnesium Total Bilirubin AST ALT Alkaline Phosphatase Total Protein Albumin 11/02/17 11/02/17 11/04/17 17:36 23:17 05:45 Sodium 145 Potassium 3.9 Chloride 113 H Carbon Dioxide 25 Anion Gap 7 L BUN 53 H Creatinine 1.7 H Creat Clearance w eGFR 30.16 POC Glucometer 129.55862 139.92583 Random Glucose 95 Uric Acid 7.7 H Calcium 8.3 L Phosphorus 4.0 Magnesium 1.8 Total Bilirubin 0.5 D AST 12 L ALT 14 Alkaline Phosphatase 107 Total Protein 6.8 Albumin 3.1 L Problem List - Problems (1) Hypoxemia Code(s): R09.02 - HYPOXEMIA (2) NSTEMI (non-ST elevated myocardial infarction) Code(s): I21.4 - NON-ST ELEVATION (NSTEMI) MYOCARDIAL INFARCTION (3) Pneumothorax Code(s): J93.9 - PNEUMOTHORAX, UNSPECIFIED (4) Altered mental status Code(s): R41.82 - ALTERED MENTAL STATUS, UNSPECIFIED Qualifiers: Altered mental status type: somnolence Qualified Code(s): R40.0 - Somnolence (5) Contusion Code(s): T14.8 - OTHER INJURY OF UNSPECIFIED BODY REGION * DO NOT USE * Qualifiers: Encounter type: initial encounter Contusion area: knee Laterality: left Qualified Code(s): S80.02XA - Contusion of left knee, initial encounter (6) Fall Code(s): W19.XXXA - UNSPECIFIED FALL, INITIAL ENCOUNTER Qualifiers: Encounter type: initial encounter Qualified Code(s): W19.XXXA - Unspecified fall, initial encounter Assessment/Plan Check CXR: Discussed with CTS yesterday: They recommend leaving on suction today and is no PTX tomorrow AM -> another trial of water seal Supplemental O2 Monitor CT drainage Incentive spirometry needs to be encouraged Pulmonary toilet PO as tolerated Daily CXR while pleural catheter is in place Pain control SCDs Telemetry monitoring Dr Brown
--- NOTE | 2017-11-04 13:11 | PN ---
Progress Note, Physician Chief Complaint: The patient seen in her room in Telemetry. Still feels weak. The right sided chest tube is draining minimal sero-sanguinous fluids. seems to be in no distress. History of Present Illness: 67 yr old woman with HTN, IDDM, Schizophrenia, smoker from [facility] ( intermediate resident) for acute shortness of breath. Says she was walking from her bed to the bathroom when she started to have trouble breathing, her roommate called for help and 911 was called. Denies chest pain, dizziness, lightheadedness, vomiting, abdominal pain, headache, syncope. She fell on 10/19/2017 on her right side and was initially seen in [facility]. The patient was noted to have a right sided Pneumothorax, and a chest tube was placed. - Current Medication List Current Medications: Active Medications Albuterol Sulfate (Ventolin 0.083% Nebulizer Soln -) 1 amp NEB RQID [facility] Last Admin: 11/04/17 09:29 Dose: 1 amp Amlodipine Besylate (Norvasc -) 5 mg PO DAILY [facility] Last Admin: 11/04/17 09:04 Dose: 5 mg Hydralazine HCl (Apresoline -) 25 mg PO TID [facility] Last Admin: 11/04/17 06:19 Dose: 25 mg Insulin Aspart (Novolog Vial Sliding Scale -) 1 vial SQ ACHS [facility] PRN Reason: Protocol Last Admin: 11/04/17 12:23 Dose: Not Given Labetalol HCl (Normodyne -) 400 mg PO BID [facility] Last Admin: 11/04/17 09:04 Dose: 400 mg Levetiracetam (Keppra Xr -) 500 mg PO BID [facility] Last Admin: 11/04/17 09:05 Dose: 500 mg Mirtazapine (Remeron -) 15 mg PO HS [facility] Last Admin: 11/03/17 21:40 Dose: 15 mg Pantoprazole Sodium (Protonix -) 40 mg PO DAILY [facility] Last Admin: 11/04/17 09:03 Dose: 40 mg - Objective Vital Signs: Vital Signs Temperature 98 F 11/04/17 12:00 Pulse Rate 62 11/04/17 12:00 Respiratory Rate 18 11/04/17 12:00 Blood Pressure 113/60 11/04/17 12:00 O2 Sat by Pulse Oximetry (%) 96 05/13/18 09:00 Constitutional: Yes: Anxious, Mild Distress Eyes: Yes: Conjunctiva Clear HENT: Yes: Normocephalic Neck: Yes: Trachea Midline Cardiovascular: Yes: S1, S2 Respiratory: Yes: CTA Bilaterally, Poor Air Entry Gastrointestinal: Yes: Normal Bowel Sounds. No: Tenderness, Epigastrium Genitourinary: No: CVA Tenderness - Left, CVA Tenderness - Right Extremities: No: Calf Tenderness Neurological: Yes: Alert Labs: CBC, BMP 11/02/17 05:56 11/04/17 05:45 INR, PTT INR 1.48 (0.82-1.09) H 11/01/17 05:15 Problem List - Problems (1) Acute kidney failure Code(s): N17.9 - ACUTE KIDNEY FAILURE, UNSPECIFIED (2) Pneumothorax Code(s): J93.9 - PNEUMOTHORAX, UNSPECIFIED (3) Contusion Code(s): T14.8 - OTHER INJURY OF UNSPECIFIED BODY REGION * DO NOT USE * Qualifiers: Encounter type: initial encounter Contusion area: knee Laterality: left Qualified Code(s): S80.02XA - Contusion of left knee, initial encounter (4) Hypertension Code(s): I10 - ESSENTIAL (PRIMARY) HYPERTENSION Assessment/Plan 67 yr old woman with HTN, IDDM, Schizophrenia, smoker from [facility] for acute shortness of breath. Says she was walking from her bed to the bathroom when she started to have trouble breathing, her roommate called for help and 911 was called. Denies chest pain, dizziness, lightheadedness, vomiting, abdominal pain, headache, syncope. She fell on 10/19/2017 on her right side and was initially seen in [facility]. The Renal functions starting to improve. IV fluids well tolerated. Hemodynamic status improving and expected to settle at or near her baseline. Will monitor the renal functions with you. Thank you. Kayla Holden MD
[2017-11-04 14:48] LABS: EOS % 4.7 % (0-4.5); HEMATOCRIT 32.9 % (32.4-45.2); HEMOGLOBIN 10.9 GM/dL (10.7-15.3); MCH 26.9 pg (25.7-33.7); MEAN CELL VOLUME 81.5 fl (80-96); MEAN PLT VOLUME 8.9 fl (7.5-11.1); MONO % 10.3 % (3.8-10.2); PLATELET COUNT 183 K/MM3 (134-434); RBC 4.04 M/mm3 (3.60-5.2); RDW 17.5 % (11.6-15.6); WHITE BLOOD COUNT 6.2 K/mm3 (4.0-10.0)
[2017-11-04] MEDS: MIRTAZAPINE 15 MG TABLET (FP) PO SCH (21:48)
[2017-11-05] MEDS: hydrALAZINE HCL 25 MG TABLET (FP) PO SCH ×2 (05:07→13:20)
[2017-11-05] MEDS: INSULIN SLIDING SCALE (NOVOLOG) 1 VIAL SQ SCH ×4 (06:22→22:01)
[2017-11-05 06:47] LABS: CHLORIDE 118 mmol/L (98-107); SODIUM 150 mmol/L (136-145)
[2017-11-05 06:53] LABS: ANION GAP 7 (8-16); BLOOD UREA NITROGEN 44 mg/dL (7-18); CALCIUM 8.3 mg/dL (8.5-10.1); CO2 25 mmol/L (21-32); CREATININE 1.5 mg/dL (0.55-1.02); GLUCOSE,RANDOM 89 mg/dL (74-106)
[2017-11-05] MEDS: ALBUTEROL SO4 0.083% IH SOL 2.5 MG/3 ML VIAL.NEB. NEB SCH ×4 (07:40→20:45)
[2017-11-05] MEDS: levETIRAcetam XR 500 MG TAB PO SCH ×2 (10:09→21:56)
[2017-11-05] MEDS: LABETALOL HCL 200 MG TABLET (FP) PO SCH (10:09)
[2017-11-05] MEDS: PANTOPRAZOLE 40 MG TABLET (FP) PO SCH (10:09)
[2017-11-05] MEDS: amLODIPine BESYLATE 5 MG TABLET (FP) PO SCH (10:09)
[2017-11-05] MEDS: ACETAMINOPHEN 325 MG TABLET (FP) PO PRN ×2 (10:52→19:30)
--- NOTE | 2017-11-05 15:34 | PN ---
Progress Note (short form) - Note Progress Note: PULMONARY Somnolent but arousable. States some pain when coughing. Chest tube on water seal, CXR with small apical pneumothorax. Last Vital Signs Temp Pulse Resp BP Pulse Ox 98.5 F 61 22 84/53 100 11/05/17 13:56 11/05/17 13:56 11/05/17 13:56 11/05/17 13:56 11/05/17 08:00 Intake & Output 11/02/17 11/03/17 11/04/17 11/05/17 23:59 23:59 23:59 23:59 Intake Total 2196 3000 1640 320 Output Total 0 255 0 13 Balance 2196 2745 1640 307 Weight 66.224 kg 70.7 kg Gen: somnolent but arousable Heart: RRR Lung: decreased breath sounds at the bases Abd: soft, nontender Ext: no edema Chest tube: minimal drainage, no air leak CBC, BMP 11/04/17 14:36 11/05/17 05:27 Active Medications Acetaminophen (Tylenol -) 650 mg PO Q4H PRN PRN Reason: Fever Or Pain 3-6 Last Admin: 11/05/17 10:52 Dose: 650 mg Albuterol Sulfate (Ventolin 0.083% Nebulizer Soln -) 1 amp NEB RQID [facility] Last Admin: 11/05/17 11:41 Dose: Not Given Amlodipine Besylate (Norvasc -) 5 mg PO DAILY [facility] Last Admin: 11/05/17 10:09 Dose: 5 mg Hydralazine HCl (Apresoline -) 25 mg PO TID [facility] Last Admin: 11/05/17 13:20 Dose: 25 mg Insulin Aspart (Novolog Vial Sliding Scale -) 1 vial SQ ACHS [facility] PRN Reason: Protocol Last Admin: 11/05/17 11:12 Dose: 6 units Labetalol HCl (Normodyne -) 400 mg PO BID [facility] Last Admin: 11/05/17 10:09 Dose: 400 mg Levetiracetam (Keppra Xr -) 500 mg PO BID [facility] Last Admin: 11/05/17 10:09 Dose: 500 mg Mirtazapine (Remeron -) 15 mg PO HS [facility] Last Admin: 11/04/17 21:48 Dose: 15 mg Pantoprazole Sodium (Protonix -) 40 mg PO DAILY [facility] Last Admin: 11/05/17 10:09 Dose: 40 mg A/P Right Spontaneous Pneumothorax s/p pigtail insertion HTN DM Schizophrenia h/o DVT Smoker - continue chest tube to water seal - CXR in AM - holding anticoagulation - BP control - DVT prophylaxis
--- NOTE | 2017-11-05 18:37 | PN ---
Progress Note (short form) - Note Progress Note: Renal follow up for DEZ on CKD Pt seen and examined in Tele awake and alert reports pain at chest tube insertion site no N/V/D, CP, SOB, Abd pain making urine no fever, chills Vital Signs Temperature 98.0 F 11/05/17 17:58 Pulse Rate 64 11/05/17 17:58 Respiratory Rate 20 11/05/17 17:58 Blood Pressure 72/54 11/05/17 17:58 O2 Sat by Pulse Oximetry (%) 100 11/05/17 08:00 Intake & Output 11/02/17 11/03/17 11/04/17 11/05/17 23:59 23:59 23:59 23:59 Intake Total 2196 3000 1640 470 Output Total 0 255 0 13 Balance 2196 2745 1640 457 Weight 66.224 kg 70.7 kg NAD awake and alert Right sided chest tube in place RRR Dec BS right lung soft NT/ND no LE edema CBC, BMP 11/04/17 14:36 11/05/17 05:27 Current Medications Acetaminophen (Tylenol -) 650 mg PO Q4H PRN PRN Reason: Fever Or Pain 3-6 Last Admin: 11/05/17 10:52 Dose: 650 mg Albuterol Sulfate (Ventolin 0.083% Nebulizer Soln -) 1 amp NEB RQID [facility] Last Admin: 11/05/17 16:15 Dose: 1 amp Amlodipine Besylate (Norvasc -) 5 mg PO DAILY [facility] Last Admin: 11/05/17 10:09 Dose: 5 mg Hydralazine HCl (Apresoline -) 25 mg PO TID [facility] Last Admin: 11/05/17 13:20 Dose: 25 mg Insulin Aspart (Novolog Vial Sliding Scale -) 1 vial SQ ACHS [facility] PRN Reason: Protocol Last Admin: 11/05/17 16:44 Dose: 2 units Labetalol HCl (Normodyne -) 400 mg PO BID [facility] Last Admin: 11/05/17 10:09 Dose: 400 mg Levetiracetam (Keppra Xr -) 500 mg PO BID [facility] Last Admin: 11/05/17 10:09 Dose: 500 mg Mirtazapine (Remeron -) 15 mg PO HS [facility] Last Admin: 11/04/17 21:48 Dose: 15 mg Pantoprazole Sodium (Protonix -) 40 mg PO DAILY [facility] Last Admin: 11/05/17 10:09 Dose: 40 mg This is a 67 year old woman with PMhx of Hypertension, Schizophrenia, Former smoker, ? CKD (pervious Cr values 1.6-1.7) who presented with sob and found to have pneumothorax with DEZ. 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
--- NOTE | 2017-11-05 18:47 | PN ---
Physical Exam: SUBJECTIVE: Pt reports feeling "terrible" because she did not sleep last night. She does not know why she could not sleep. Pt remains without pain and does not express difficulty breathing. OBJECTIVE: Vital Signs Period Temp Pulse Resp BP Sys/Miller Pulse Ox Last 24 Hr 97.9 F-99.1 F 59-76 16-23 72-152/50-83 99-100 GENERAL: NAD, awake, alert, kyphotic and eating at bedside HEENT: NC/AT, EOMI, FIGUEROA, moist mucosa LUNGS: Diminished sounds bibasillary noted with poor inspiratory effort, pigtail catheter intact. No leak remains; Canister on low wall suction; poor IS use @ 500 HEART: RRR, S1, S2 without murmur ABDOMEN: Soft, nontender, nondistended, normoactive bowel sounds, no guarding EXTREMITIES: 2+ DP pulses, warm, no edema. Laboratory Results - last 24 hr 11/03/17 11/03/17 11/03/17 11:55 16:11 21:47 Sodium Potassium Chloride Carbon Dioxide Anion Gap BUN Creatinine POC Glucometer 213.60416 150.63592 152.30730 Random Glucose Calcium 11/04/17 11/04/17 11/04/17 06:04 12:22 15:59 Sodium Potassium Chloride Carbon Dioxide Anion Gap BUN Creatinine POC Glucometer 111.47356 148.40020 145.08498 Random Glucose Calcium 11/04/17 11/05/17 21:46 05:27 Sodium 150 H Potassium 4.0 Chloride 118 H Carbon Dioxide 25 Anion Gap 7 L BUN 44 H Creatinine 1.5 H POC Glucometer 139.85526 Random Glucose 89 Calcium 8.3 L Active Medications Generic Name Dose Route Start Last Admin Trade Name Freq PRN Reason Stop Dose Admin Acetaminophen 650 mg 11/05/17 10:29 11/05/17 10:52 Tylenol - PO 650 mg Q4H PRN Administration Fever Or Pain 3-6 Albuterol Sulfate 1 amp 11/02/17 12:00 11/05/17 16:15 Ventolin 0.083% Nebulizer Soln - NEB 1 amp RQID LEV Administration Amlodipine Besylate 5 mg 11/06/17 10:00 Norvasc - PO DAILY LEV Insulin Aspart 1 vial 11/01/17 22:00 11/05/17 16:44 Novolog Vial Sliding Scale - SQ 2 units ACHS LEV Administration Protocol Labetalol HCl 400 mg 11/05/17 22:00 Normodyne - PO BID LEV Levetiracetam 500 mg 11/01/17 22:00 11/05/17 10:09 Keppra Xr - PO 500 mg BID LEV Administration Mirtazapine 15 mg 11/01/17 22:00 11/04/17 21:48 Remeron - PO 15 mg HS LEV Administration Pantoprazole Sodium 40 mg 11/02/17 10:00 11/05/17 10:09 Protonix - PO 40 mg DAILY LEV Administration ASSESSMENT/PLAN: 1) Pneumothorax --Pigtail at wall suction today --CXR Noon while changing to waterseal to assess for reaccumulation of PTX --If no reaccumulation then keep on waterseal and assess with CXR tomorrow AM --Cardiothoracic surgery on board --Encourage IS usage to prevent atelectatic changes 2) Acute kidney injury --Imroving --HCTZ remains discontinued --Nephrology recommendations appreciated; thank you --Avoid nephrotoxic agents 3) Elevated Troponin --Suspect due to demand from decreased O2 from PTX --EKG w/o ischemia changes --Dr. Meehan consulted --Echo without wall motion abnormalities noted; normal EF --Continue Labetalol 400mg BID PO 4) HTN --Continue Cozaar 50mg PO qdaily --Continue Hydralazine 25mg PO TID --Norvasc 5mg PO qdaily 5) DM --A1c 6.9% --ISS --BGM ACHS 6) Schizophrenia --Continue Remeron 15mg PO HS FEN: Avoid fluids Electrolyte abnormalities: None today Nutrition: Diabetic diet continues PPX: DVT - Xeralto being held due to bleeding seen near pigtail; SCDs PPX - Protonix 40mg PO qdaily Dispo: Monitor tele Case discussed with Dr. Latha Black, DO - IM PGY-1 Visit type - Emergency Visit Emergency Visit: No - New Patient This patient is new to me today: No - Critical Care Critical Care patient: No
--- NOTE | 2017-11-05 20:06 | PN ---
Teaching Attending Note Name of Resident: Adams Black ATTENDING PHYSICIAN STATEMENT I saw and evaluated the patient. I reviewed the resident's note and discussed the case with the resident. I agree with the resident's findings and plan as documented. SUBJECTIVE: Patient is comfortable with no acute distress. still on tele with chest tube. OBJECTIVE: Vital Signs Period Temp Pulse Resp BP Sys/Miller Pulse Ox Last 24 Hr 97.9 F-99.1 F 59-76 16-23 72-152/50-83 99-100 CBCD WBC 6.2 K/mm3 (4.0-10.0) D 11/04/17 14:36 RBC 4.04 M/mm3 (3.60-5.2) 11/04/17 14:36 Hgb 10.9 GM/dL (10.7-15.3) 11/04/17 14:36 Hct 32.9 % (32.4-45.2) 11/04/17 14:36 MCV 81.5 fl (80-96) 11/04/17 14:36 MCHC 33.0 g/dl (32.0-36.0) 11/04/17 14:36 RDW 17.5 % (11.6-15.6) H 11/04/17 14:36 Plt Count 183 K/MM3 (134-434) 11/04/17 14:36 MPV 8.9 fl (7.5-11.1) 11/04/17 14:36 CMP Sodium 150 mmol/L (136-145) H 11/05/17 05:27 Potassium 4.0 mmol/L (3.5-5.1) 11/05/17 05:27 Chloride 118 mmol/L (98-107) H 11/05/17 05:27 Carbon Dioxide 25 mmol/L (21-32) 11/05/17 05:27 Anion Gap 7 (8-16) L 11/05/17 05:27 BUN 44 mg/dL (7-18) H 11/05/17 05:27 Creatinine 1.5 mg/dL (0.55-1.02) H 11/05/17 05:27 Creat Clearance w eGFR 30.16 (>60) 11/04/17 05:45 Random Glucose 89 mg/dL (74-106) 11/05/17 05:27 Calcium 8.3 mg/dL (8.5-10.1) L 11/05/17 05:27 Total Bilirubin 0.5 mg/dL (0.2-1.0) D 11/04/17 05:45 AST 12 U/L (15-37) L 11/04/17 05:45 ALT 14 U/L (12-78) 11/04/17 05:45 Alkaline Phosphatase 107 U/L (45-117) 11/04/17 05:45 Total Protein 6.8 g/dl (6.4-8.2) 11/04/17 05:45 Albumin 3.1 g/dl (3.4-5.0) L 11/04/17 05:45 CARDIAC ENZYMES Creatine Kinase 321 IU/L (26-192) H 11/01/17 05:15 Troponin I 3.91 ng/ml (0.00-0.05) H* 11/01/17 05:15 Current Medications Generic Name Dose Route Start Last Admin Trade Name Freq PRN Reason Stop Dose Admin Acetaminophen 650 mg 11/05/17 10:29 11/05/17 19:30 Tylenol - PO 650 mg Q4H PRN Administration Fever Or Pain 3-6 Albuterol Sulfate 1 amp 11/02/17 12:00 11/05/17 16:15 Ventolin 0.083% Nebulizer Soln - NEB 1 amp RQID LEV Administration Amlodipine Besylate 5 mg 11/06/17 10:00 Norvasc - PO DAILY LEV Insulin Aspart 1 vial 11/01/17 22:00 11/05/17 16:44 Novolog Vial Sliding Scale - SQ 2 units ACHS LEV Administration Protocol Labetalol HCl 400 mg 11/05/17 22:00 Normodyne - PO BID LEV Levetiracetam 500 mg 11/01/17 22:00 11/05/17 10:09 Keppra Xr - PO 500 mg BID LEV Administration Mirtazapine 15 mg 11/01/17 22:00 11/04/17 21:48 Remeron - PO 15 mg HS LEV Administration Pantoprazole Sodium 40 mg 11/02/17 10:00 11/05/17 10:09 Protonix - PO 40 mg DAILY LEV Administration Home Medications Medication Instructions Recorded Amlodipine Besylate [Norvasc -] 5 mg PO DAILY 01/28/14 Labetalol HCl [Normodyne -] 400 mg PO Q12H 01/28/14 Levetiracetam [Levetiracetam ER] 500 mg PO BID 01/28/14 Losartan Potassium 50 mg PO DAILY 01/28/14 Acetaminophen [Mapap] 650 mg PO BID 07/16/16 Insulin Lispro [Humalog] 4 unit SQ TID 07/16/16 Mirtazapine [Remeron -] 15 mg PO HS 07/16/16 Pantoprazole Sodium 40 mg PO DAILY 07/16/16 hydrALAZINE HCL [Apresoline -] 25 mg PO TID 07/16/16 Rivaroxaban [Xarelto -] 20 mg PO DAILY 07/17/16 PE: per resident's note ASSESSMENT AND PLAN: Patient is a 67 yr old female with pmhx of HTN, current every day smoker presents with spontanous right sided penumothorax likely due to mechanical fall few days ago s/p pigtail insertion admitted to ICU for further management. #Acute Pneumothorax s/p pigtail insertion in ED., serosangeonous drainage , continue suction on chest tube . waterseal for am if possible , repeat cxr in am. continue to hold off on Xarelto . # Elevated troponin most likely due to demand ischemia, less likely to be ACS. No ischemic ekg changes, pt denies chest pain # Hx of DVT ;as per chart review, in 2017 pt had a DVT and was treated with xarelto,, and is not clear why she was continued on Xarelto. #HTN continue home meds losartan, labetalol, norvasc, hydralazine #schizophrenia continue remeron #T2DM - bgm ACHS, NISS, get A1c in the AM #smoking cessation, pt declined nicotine patch, counseling offered # ON Keppra, not sure why?? #DVT ppx : as per Cardiothoracic surgeon to hold off on xarelto or heparin since having serosinguiness drainage. pt has three children, two sons and a daughter. son Yaa is who she told me would like to make decisions for her if she is unable to do so herself, he is in [place]. Her daughter is in [place], the 2nd son is in [place] but appears that she has not seen him in a long time. denies being .
[2017-11-05] MEDS: MIRTAZAPINE 15 MG TABLET (FP) PO SCH (21:55)
[2017-11-05] MEDS ORDERED: LABETALOL HCL 200 MG TABLET (FP) PO SCH (22:00)
[2017-11-06 06:54] LABS: ANION GAP 7 (8-16); BLOOD UREA NITROGEN 45 mg/dL (7-18); CALCIUM 8.3 mg/dL (8.5-10.1); CHLORIDE 116 mmol/L (98-107); CO2 24 mmol/L (21-32); CREATININE 1.5 mg/dL (0.55-1.02); GLUCOSE,RANDOM 90 mg/dL (74-106); MAGNESIUM 1.9 mg/dL (1.8-2.4); PHOSPHOROUS 3.6 mg/dL (2.5-4.9); POTASSIUM 4.1 mmol/L (3.5-5.1); SODIUM 147 mmol/L (136-145)
[2017-11-06] MEDS: INSULIN SLIDING SCALE (NOVOLOG) 1 VIAL SQ SCH ×4 (07:00→21:06)
--- NOTE | 2017-11-06 07:02 | PN ---
Physical Exam: SUBJECTIVE: Pt without complaints today. Encouraged IS today with inspiratory effort to 750. OBJECTIVE: Vital Signs Period Temp Pulse Resp BP Sys/Miller Pulse Ox Last 24 Hr 97.8 F-98.6 F 59-76 20-23 72-152/50-79 100-100 GENERAL: NAD, awake, alert, kyphotic and eating at bedside HEENT: NC/AT, EOMI, FIGUEROA, moist mucosa LUNGS: Diminished sounds bibasillary noted with poor inspiratory effort, pigtail catheter intact to waterseal HEART: RRR, S1, S2 without murmur ABDOMEN: Soft, nontender, nondistended, normoactive bowel sounds, no guarding EXTREMITIES: 2+ DP pulses, warm, no edema. Laboratory Results - last 24 hr 11/06/17 11/06/17 05:23 06:07 Sodium 147 H Potassium 4.1 Chloride 116 H Carbon Dioxide 24 Anion Gap 7 L BUN 45 H Creatinine 1.5 H POC Glucometer 129.69476 Random Glucose 90 Calcium 8.3 L Phosphorus 3.6 Magnesium 1.9 Active Medications Generic Name Dose Route Start Last Admin Trade Name Freq PRN Reason Stop Dose Admin Acetaminophen 650 mg 11/05/17 10:29 11/05/17 19:30 Tylenol - PO 650 mg Q4H PRN Administration Fever Or Pain 3-6 Albuterol Sulfate 1 amp 11/02/17 12:00 11/05/17 20:45 Ventolin 0.083% Nebulizer Soln - NEB 1 amp RQID LEV Administration Amlodipine Besylate 5 mg 11/06/17 10:00 Norvasc - PO DAILY LEV Insulin Aspart 1 vial 11/01/17 22:00 11/05/17 22:01 Novolog Vial Sliding Scale - SQ 2 units ACHS LEV Administration Protocol Labetalol HCl 400 mg 11/05/17 22:00 11/05/17 21:56 Normodyne - PO 400 mg BID LEV Administration Levetiracetam 500 mg 11/01/17 22:00 11/05/17 21:56 Keppra Xr - PO 500 mg BID LEV Administration Mirtazapine 15 mg 11/01/17 22:00 11/05/17 21:55 Remeron - PO 15 mg HS LEV Administration Pantoprazole Sodium 40 mg 11/02/17 10:00 11/05/17 10:09 Protonix - PO 40 mg DAILY LEV Administration ASSESSMENT/PLAN: 1) Pneumothorax --Pigtail on waterseal today --CXR this AM shows no gross PTX with if needed CT for better correlation --Pt remains stable while on waterseal --If pt shows continued lack of accumulation of PTX possibility of removing pigtail --Cardiothoracic surgery on board --Encourage IS usage to prevent atelectatic changes 2) Acute kidney injury --Imroving --HCTZ remains discontinued --Nephrology recommendations appreciated; thank you --Avoid nephrotoxic agents 3) Elevated Troponin --Suspect due to demand from decreased O2 from PTX --EKG w/o ischemia changes --Dr. Meehan consulted --Echo without wall motion abnormalities noted; normal EF --Continue Labetalol 400mg BID PO 4) HTN --Continue Cozaar 50mg PO qdaily --Continue Hydralazine 25mg PO TID --Norvasc 5mg PO qdaily 5) DM --A1c 6.9% --ISS --BGM ACHS 6) Schizophrenia --Continue Remeron 15mg PO HS FEN: Avoid fluids Electrolyte abnormalities: Hypernatremia improving today; most likely dehydration causing increase in Na Nutrition: Diabetic diet continues PPX: DVT - ? restarting Xeralto; SCDs PPX - Protonix 40mg PO qdaily Dispo: Monitor tele Case discussed with Dr. Latha Black, DO - IM PGY-1 Visit type - Emergency Visit Emergency Visit: No - New Patient This patient is new to me today: No - Critical Care Critical Care patient: No
[2017-11-06] MEDS ORDERED: ALBUTEROL SO4 0.083% IH SOL 2.5 MG/3 ML VIAL.NEB. NEB PRN (07:04)
--- NOTE | 2017-11-06 08:09 | PN ---
Teaching Attending Note Name of Resident: Adams Black ATTENDING PHYSICIAN STATEMENT I saw and evaluated the patient. I reviewed the resident's note and discussed the case with the resident. I agree with the resident's findings and plan as documented. SUBJECTIVE: Patient is comfortable , having her lunch. OBJECTIVE: Vital Signs Temperature 98.2 F 11/06/17 05:52 Pulse Rate 68 11/06/17 05:52 Respiratory Rate 20 11/06/17 05:52 Blood Pressure 146/76 11/06/17 05:52 O2 Sat by Pulse Oximetry (%) 100 11/05/17 20:44 CBCD WBC 6.2 K/mm3 (4.0-10.0) D 11/04/17 14:36 RBC 4.04 M/mm3 (3.60-5.2) 11/04/17 14:36 Hgb 10.9 GM/dL (10.7-15.3) 11/04/17 14:36 Hct 32.9 % (32.4-45.2) 11/04/17 14:36 MCV 81.5 fl (80-96) 11/04/17 14:36 MCHC 33.0 g/dl (32.0-36.0) 11/04/17 14:36 RDW 17.5 % (11.6-15.6) H 11/04/17 14:36 Plt Count 183 K/MM3 (134-434) 11/04/17 14:36 MPV 8.9 fl (7.5-11.1) 11/04/17 14:36 CMP Sodium 147 mmol/L (136-145) H 11/06/17 05:23 Potassium 4.1 mmol/L (3.5-5.1) 11/06/17 05:23 Chloride 116 mmol/L (98-107) H 11/06/17 05:23 Carbon Dioxide 24 mmol/L (21-32) 11/06/17 05:23 Anion Gap 7 (8-16) L 11/06/17 05:23 BUN 45 mg/dL (7-18) H 11/06/17 05:23 Creatinine 1.5 mg/dL (0.55-1.02) H 11/06/17 05:23 Creat Clearance w eGFR 30.16 (>60) 11/04/17 05:45 Random Glucose 90 mg/dL (74-106) 11/06/17 05:23 Calcium 8.3 mg/dL (8.5-10.1) L 11/06/17 05:23 Total Bilirubin 0.5 mg/dL (0.2-1.0) D 11/04/17 05:45 AST 12 U/L (15-37) L 11/04/17 05:45 ALT 14 U/L (12-78) 11/04/17 05:45 Alkaline Phosphatase 107 U/L (45-117) 11/04/17 05:45 Total Protein 6.8 g/dl (6.4-8.2) 11/04/17 05:45 Albumin 3.1 g/dl (3.4-5.0) L 11/04/17 05:45 CARDIAC ENZYMES Creatine Kinase 321 IU/L (26-192) H 11/01/17 05:15 Troponin I 3.91 ng/ml (0.00-0.05) H* 11/01/17 05:15 Home Medications Medication Instructions Recorded Amlodipine Besylate [Norvasc -] 5 mg PO DAILY 01/28/14 Labetalol HCl [Normodyne -] 400 mg PO Q12H 01/28/14 Levetiracetam [Levetiracetam ER] 500 mg PO BID 01/28/14 Losartan Potassium 50 mg PO DAILY 01/28/14 Acetaminophen [Mapap] 650 mg PO BID 07/16/16 Insulin Lispro [Humalog] 4 unit SQ TID 07/16/16 Mirtazapine [Remeron -] 15 mg PO HS 07/16/16 Pantoprazole Sodium 40 mg PO DAILY 07/16/16 hydrALAZINE HCL [Apresoline -] 25 mg PO TID 07/16/16 Rivaroxaban [Xarelto -] 20 mg PO DAILY 07/17/16 Current Medications Generic Name Dose Route Start Last Admin Trade Name Freq PRN Reason Stop Dose Admin Acetaminophen 650 mg 11/05/17 10:29 11/05/17 19:30 Tylenol - PO 650 mg Q4H PRN Administration Fever Or Pain 3-6 Albuterol Sulfate 1 amp 11/06/17 07:04 Ventolin 0.083% Nebulizer Soln - NEB RQID PRN SHORT OF BREATH/WHEEZING Amlodipine Besylate 5 mg 11/06/17 10:00 Norvasc - PO DAILY LEV Insulin Aspart 1 vial 11/01/17 22:00 11/05/17 22:01 Novolog Vial Sliding Scale - SQ 2 units ACHS LEV Administration Protocol Labetalol HCl 400 mg 11/06/17 07:03 Normodyne - PO BID LEV Levetiracetam 500 mg 11/01/17 22:00 11/05/17 21:56 Keppra Xr - PO 500 mg BID LEV Administration Mirtazapine 15 mg 11/01/17 22:00 11/05/17 21:55 Remeron - PO 15 mg HS LEV Administration Pantoprazole Sodium 40 mg 11/02/17 10:00 11/05/17 10:09 Protonix - PO 40 mg DAILY LEV Administration PE:per resident's note ASSESSMENT AND PLAN: Patient is a 67 yr old female with pmhx of HTN, current every day smoker presents with spontanous right sided penumothorax likely due to mechanical fall few days ago s/p pigtail insertion admitted to ICU for further management. #Acute Pneumothorax s/p pigtail insertion in ED with serosangeonous drainage , continue suction on chest tube . waterseal if cxr neg. repeat cxr scheduled. off Xarelto . # Elevated troponin most likely due to demand ischemia, less likely to be ACS. No ischemic ekg changes, pt denies chest pain # Hx of DVT ;as per chart review, in 2017 pt had a DVT and was treated with xarelto,, and is not clear why she was continued on Xarelto. #HTN continue home meds losartan, labetalol, norvasc, hydralazine #schizophrenia continue remeron #T2DM - bgm ACHS, NISS, get A1c in the AM #smoking cessation, pt declined nicotine patch, counseling offered # ON Keppra, not sure why?? #DVT ppx : as per Cardiothoracic surgeon to hold off on xarelto or heparin since having serosangeonous drainage. pt has three children, two sons and a daughter. son Yaa who she woulds like to make decisions for her if she is unable to do so herself, he is in [place]. Her daughter is in [place], the 2nd son is in [place] but appears that she has not seen him in a long time. denies being . will repeat cxr in am
[2017-11-06] MEDS: ACETAMINOPHEN 325 MG TABLET (FP) PO PRN (10:46)
[2017-11-06] MEDS ORDERED: PT OWN MED DRAWER 7, Y5N ONE ×2 (10:46→20:59)
[2017-11-06] MEDS: PANTOPRAZOLE 40 MG TABLET (FP) PO SCH (10:47)
[2017-11-06] MEDS: amLODIPine BESYLATE 5 MG TABLET (FP) PO SCH (10:47)
[2017-11-06] MEDS: levETIRAcetam XR 500 MG TAB PO SCH ×2 (10:48→21:11)
[2017-11-06] MEDS: LABETALOL HCL 200 MG TABLET (FP) PO SCH ×2 (10:48→21:05)
--- NOTE | 2017-11-06 12:39 | PN ---
Progress Note (short form) - Note Progress Note: PULMONARY Eating in chair. Chest tube on water seal overnight, AM CXR unchanged. Last Vital Signs Temp Pulse Resp BP Pulse Ox 98.2 F 68 23 172/87 100 11/06/17 05:52 11/06/17 10:00 11/06/17 10:00 11/06/17 10:00 11/06/17 09:00 Intake & Output 11/03/17 11/04/17 11/05/17 11/06/17 23:59 23:59 23:59 23:59 Intake Total 3000 1640 470 Output Total 255 0 24 Balance 2745 1640 446 Weight 70.7 kg Gen: NAD in chair Heart: RRR Lung: decreased breath sounds at the bases Abd: soft, nontender Ext: no edema Chest tube: minimal drainage, no air leak CBC, BMP 11/04/17 14:36 11/06/17 05:23 Active Medications Acetaminophen (Tylenol -) 650 mg PO Q4H PRN PRN Reason: Fever Or Pain 3-6 Last Admin: 11/06/17 10:46 Dose: 650 mg Albuterol Sulfate (Ventolin 0.083% Nebulizer Soln -) 1 amp NEB Q6H PRN PRN Reason: SHORT OF BREATH/WHEEZING Amlodipine Besylate (Norvasc -) 5 mg PO DAILY [facility] Last Admin: 11/06/17 10:47 Dose: 5 mg Insulin Aspart (Novolog Vial Sliding Scale -) 1 vial SQ ACHS [facility] PRN Reason: Protocol Last Admin: 11/06/17 11:44 Dose: 2 units Labetalol HCl (Normodyne -) 400 mg PO BID [facility] Last Admin: 11/06/17 10:48 Dose: 400 mg Levetiracetam (Keppra Xr -) 500 mg PO BID [facility] Last Admin: 11/06/17 10:48 Dose: 500 mg Mirtazapine (Remeron -) 15 mg PO HS [facility] Last Admin: 11/05/17 21:55 Dose: 15 mg Pantoprazole Sodium (Protonix -) 40 mg PO DAILY [facility] Last Admin: 11/06/17 10:47 Dose: 40 mg A/P Right Spontaneous Pneumothorax s/p pigtail insertion +Troponins likely Demand Ischemia HTN DM Schizophrenia h/o DVT Smoker - clamp chest tube, repeat CXR in 2 hrs - if repeat CXR unchanged, will pull chest tube - holding anticoagulation - BP control - DVT prophylaxis
[2017-11-06 13:52] VITALS: BMI 25.0
--- NOTE | 2017-11-06 15:28 | PN ---
Progress Note (short form) - Note Progress Note: Renal follow up for DEZ on CKD Pt seen and examined in Tele awake and alert no acute complaints making urine chest tube clamped and in place denies any sob tolerating oral diet Vital Signs Temperature 98.4 F 11/06/17 14:00 Pulse Rate 70 11/06/17 14:00 Respiratory Rate 22 11/06/17 14:00 Blood Pressure 188/97 11/06/17 14:00 O2 Sat by Pulse Oximetry (%) 100 11/06/17 09:00 Intake & Output 11/03/17 11/04/17 11/05/17 11/06/17 23:59 23:59 23:59 23:59 Intake Total 3000 1640 470 600 Output Total 255 0 24 Balance 2745 1640 446 600 Weight 70.7 kg NAD awake and alert Right sided chest tube in place RRR Dec BS right lung soft NT/ND no LE edema CBC, BMP 11/04/17 14:36 11/06/17 05:23 Current Medications Acetaminophen (Tylenol -) 650 mg PO Q4H PRN PRN Reason: Fever Or Pain 3-6 Last Admin: 11/06/17 10:46 Dose: 650 mg Albuterol Sulfate (Ventolin 0.083% Nebulizer Soln -) 1 amp NEB Q6H PRN PRN Reason: SHORT OF BREATH/WHEEZING Amlodipine Besylate (Norvasc -) 5 mg PO DAILY [facility] Last Admin: 11/06/17 10:47 Dose: 5 mg Insulin Aspart (Novolog Vial Sliding Scale -) 1 vial SQ ACHS [facility] PRN Reason: Protocol Last Admin: 11/06/17 11:44 Dose: 2 units Labetalol HCl (Normodyne -) 400 mg PO BID [facility] Last Admin: 11/06/17 10:48 Dose: 400 mg Levetiracetam (Keppra Xr -) 500 mg PO BID [facility] Last Admin: 11/06/17 10:48 Dose: 500 mg Mirtazapine (Remeron -) 15 mg PO HS [facility] Last Admin: 11/05/17 21:55 Dose: 15 mg Pantoprazole Sodium (Protonix -) 40 mg PO DAILY [facility] Last Admin: 11/06/17 10:47 Dose: 40 mg This is a 67 year old woman with PMhx of Hypertension, Schizophrenia, Former smoker, ? CKD (pervious Cr values 1.6-1.7) who presented with sob and found to have pneumothorax with DEZ. 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
[2017-11-06] MEDS: MIRTAZAPINE 15 MG TABLET (FP) PO SCH (21:05)
[2017-11-07] MEDS: INSULIN SLIDING SCALE (NOVOLOG) 1 VIAL SQ SCH ×4 (06:09→22:01)
--- NOTE | 2017-11-07 08:27 | PN ---
Addendum entered and electronically signed by Adams Black, RESIDENT 11/07/17 17:43: UPDATE 2: Pt's BP still elevated at 189/85; will give Losartan 25mg PO NOW and will continue tomorrow with home dose Losartan 50mg qDaily Addendum entered and electronically signed by Adams Black, RESIDENT 11/07/17 15:43: UPDATE 1: Pigtail removed; CXR AM; will restart xeralto tomorrow pending stability of PTX Original Note: Physical Exam: SUBJECTIVE: Pt reports sleeping better today. Still denies any shortness of breath, chest pain, leg pain or swelling and any other complaints. OBJECTIVE: Vital Signs Period Temp Pulse Resp BP Sys/Miller Pulse Ox Last 24 Hr 98.0 F-98.4 F 60-74 19-25 164-188/87-97 99-100 GENERAL: NAD, awake, alert, kyphotic and eating at bedside HEENT: NC/AT, EOMI, FIGUEROA, moist mucosa LUNGS: Diminished sounds bibasillary noted (R>L?), pigtail catheter intact and clamped, no leaking/bleeding from site currently HEART: RRR, S1, S2 without murmur ABDOMEN: Soft, nontender, nondistended, normoactive bowel sounds, no guarding EXTREMITIES: 2+ DP pulses, warm, no edema, no calf tenderness. Laboratory Results - last 24 hr 11/06/17 11/06/17 11/06/17 11:42 17:46 20:46 POC Glucometer 151.28695 130.86401 125.95151 Active Medications Generic Name Dose Route Start Last Admin Trade Name Freq PRN Reason Stop Dose Admin Acetaminophen 650 mg 11/05/17 10:29 11/06/17 10:46 Tylenol - PO 650 mg Q4H PRN Administration Fever Or Pain 3-6 Albuterol Sulfate 1 amp 11/06/17 07:04 11/06/17 20:55 Ventolin 0.083% Nebulizer Soln - NEB 1 amp Q6H PRN Administration SHORT OF BREATH/WHEEZING Amlodipine Besylate 5 mg 11/06/17 10:00 11/06/17 10:47 Norvasc - PO 5 mg DAILY [facility] Administration Hydralazine HCl 25 mg 11/07/17 08:00 Apresoline - PO TID [facility] Insulin Aspart 1 vial 11/01/17 22:00 11/07/17 06:09 Novolog Vial Sliding Scale - SQ Not Given ACHS [facility] Protocol Labetalol HCl 400 mg 11/06/17 07:03 11/06/17 21:05 Normodyne - PO 400 mg BID [facility] Administration Levetiracetam 500 mg 11/01/17 22:00 11/06/17 21:11 Keppra Xr - PO 500 mg BID [facility] Administration Mirtazapine 15 mg 11/01/17 22:00 11/06/17 21:05 Remeron - PO 15 mg HS [facility] Administration Pantoprazole Sodium 40 mg 11/02/17 10:00 11/06/17 10:47 Protonix - PO 40 mg DAILY [facility] Administration ASSESSMENT/PLAN: 1) Pneumothorax --Pigtail clamped today --CXR this AM shows no PTX and pleural effusion --Will discuss with pulmonology about removing pigtail --Cardiothoracic surgery on board --Encourage IS usage to prevent atelectatic changes 2) Acute kidney injury --HCTZ to be discontinued until further notice --Nephrology recommendations appreciated; thank you --Avoid nephrotoxic agents 3) Elevated Troponin --Resolved --Suspect due to demand from decreased O2 from PTX --Dr. Meehan consulted prior --Continue Labetalol 400mg BID PO 4) HTN --Continue Cozaar 50mg PO qdaily --Continue Hydralazine 25mg PO TID --Norvasc 5mg PO qdaily --? increasing norvasc to 10mg due to persistantly elevated BP 5) DM --A1c 6.9% --ISS --BGM ACHS 6) Schizophrenia --Continue Remeron 15mg PO HS FEN: Avoid fluids Electrolyte abnormalities: Hypernatremia improving today; most likely dehydration causing increase in Na Nutrition: Diabetic diet continues PPX: DVT - may have to wait after pigtail removal for xarelto restart; SCDs PPX - Protonix 40mg PO qdaily Dispo: Monitor tele Case discussed with Dr. Isidro Black, DO - IM PGY-1 Visit type - Emergency Visit Emergency Visit: No - New Patient This patient is new to me today: No - Critical Care Critical Care patient: No
[2017-11-07] MEDS ORDERED: PT OWN MED DRAWER 7, Y5N ONE ×2 (08:40→21:48)
[2017-11-07] MEDS: hydrALAZINE HCL 25 MG TABLET (FP) PO SCH ×3 (08:54→21:56)
[2017-11-07] MEDS: LABETALOL HCL 200 MG TABLET (FP) PO SCH ×2 (09:08→21:57)
[2017-11-07] MEDS: levETIRAcetam XR 500 MG TAB PO SCH ×2 (09:09→23:28)
[2017-11-07] MEDS: amLODIPine BESYLATE 5 MG TABLET (FP) PO SCH (09:09)
[2017-11-07] MEDS: PANTOPRAZOLE 40 MG TABLET (FP) PO SCH (09:09)
[2017-11-07 09:25] LABS: ANION GAP 7 (8-16); BLOOD UREA NITROGEN 30 mg/dL (7-18); CALCIUM 8.5 mg/dL (8.5-10.1); CHLORIDE 111 mmol/L (98-107); CO2 28 mmol/L (21-32); CREATININE 1.2 mg/dL (0.55-1.02); GLUCOSE,RANDOM 84 mg/dL (74-106); POTASSIUM 4.1 mmol/L (3.5-5.1); SODIUM 146 mmol/L (136-145)
--- NOTE | 2017-11-07 14:19 | PN ---
Progress Note (short form) - Note Progress Note: PULMONARY Denies shortness of breath or chest pain. CXR this AM without pneumothorax, chest tube clamped overnight. Last Vital Signs Temp Pulse Resp BP Pulse Ox 98.4 F 76 20 176/92 99 11/07/17 07:41 11/07/17 13:07 11/07/17 13:07 11/07/17 13:07 11/07/17 07:47 Gen: NAD at rest Heart: RRR Lung: scattered rhonchi Abd: soft, nontender Ext: no edema CBC, BMP 11/04/17 14:36 11/07/17 08:10 Active Medications Acetaminophen (Tylenol -) 650 mg PO Q4H PRN PRN Reason: Fever Or Pain 3-6 Last Admin: 11/06/17 10:46 Dose: 650 mg Albuterol Sulfate (Ventolin 0.083% Nebulizer Soln -) 1 amp NEB Q6H PRN PRN Reason: SHORT OF BREATH/WHEEZING Last Admin: 11/06/17 20:55 Dose: 1 amp Amlodipine Besylate (Norvasc -) 5 mg PO DAILY [facility] Last Admin: 11/07/17 09:09 Dose: 5 mg Hydralazine HCl (Apresoline -) 25 mg PO TID [facility] Last Admin: 11/07/17 13:16 Dose: 25 mg Insulin Aspart (Novolog Vial Sliding Scale -) 1 vial SQ ACHS [facility] PRN Reason: Protocol Last Admin: 11/07/17 12:06 Dose: Not Given Labetalol HCl (Normodyne -) 400 mg PO BID [facility] Last Admin: 11/07/17 09:08 Dose: 400 mg Levetiracetam (Keppra Xr -) 500 mg PO BID [facility] Last Admin: 11/07/17 09:09 Dose: 500 mg Mirtazapine (Remeron -) 15 mg PO HS [facility] Last Admin: 11/06/17 21:05 Dose: 15 mg Pantoprazole Sodium (Protonix -) 40 mg PO DAILY [facility] Last Admin: 11/07/17 09:09 Dose: 40 mg A/P Right Spontaneous Pneumothorax s/p pigtail insertion +Troponins likely Demand Ischemia HTN DM Schizophrenia h/o DVT Smoker - removed pigtail catheter - repeat CXR in AM - consider lasix as pt with effusion and rhonchorous on exam - BP control - DVT prophylaxis
--- NOTE | 2017-11-07 14:58 | PN ---
Teaching Attending Note Name of Resident: Adams Black ATTENDING PHYSICIAN STATEMENT I saw and evaluated the patient. I reviewed the resident's note and discussed the case with the resident. I agree with the resident's findings and plan as documented. SUBJECTIVE: No fever or chills, No SOB. no cough. OBJECTIVE: NAD Cv: RRR, 2/6 SM at apex , mild JVD. Lungs: CTAB, decreased breath sounds at R base . Ext: no edema ASSESSMENT AND PLAN: 67 y/o lady with h/o HTN, DM, Schizofrenia ,and h/o DVT who presented with SOB and was found ot have acute pneumothorax. 1-R pneumothorax: cxray today with resolution. s/p PIg tail removal - follow cxray tomorrow - will consider lasix if resp distress or hypoxia . monitor her hypernatremia and renal function which is improving with oral hydration 2- DEZ on CKD: Cr at base line 3- Hypertensive urgency: off hydralazine and losartan - cont norvasc and labetalol - resume hydralazine - resume losartan 4- NSTEMI: cont ASA and BB . 5- h/o DVT: cont to be on xarelto - will resume xarelto tomorrow if no need to reinsert chest tube. - out pt f/u with PCP to determine need for continued Ac ( details not known ) 6- Dehydaration with hypernatremia : cont oral hydration 7- DM : SSI dispo : possible dc tomorrow
[2017-11-07] MEDS ORDERED: LOSARTAN POTASSIUM 25 MG TABLET PO ONE (17:37)
[2017-11-07] MEDS: MIRTAZAPINE 15 MG TABLET (FP) PO SCH (21:56)
[2017-11-08] MEDS: hydrALAZINE HCL 25 MG TABLET (FP) PO SCH (05:25)
[2017-11-08] MEDS ORDERED: INSULIN (NOVOLOG) ASPART 100 UNITS/ML 10ML VIAL ONE (05:36)
[2017-11-08] MEDS ORDERED: PT OWN MED DRAWER 7, Y5N ONE (05:36)
[2017-11-08] MEDS: INSULIN SLIDING SCALE (NOVOLOG) 1 VIAL SQ SCH (06:03)
[2017-11-08 06:46] LABS: HEMATOCRIT 32.1 % (32.4-45.2); HEMOGLOBIN 10.6 GM/dL (10.7-15.3); MCH 26.7 pg (25.7-33.7); MCHC 33.2 g/dl (32.0-36.0); MEAN CELL VOLUME 80.4 fl (80-96); MEAN PLT VOLUME 9.4 fl (7.5-11.1); PLATELET COUNT 195 K/MM3 (134-434); RBC 3.99 M/mm3 (3.60-5.2); RDW 16.9 % (11.6-15.6); WHITE BLOOD COUNT 5.3 K/mm3 (4.0-10.0)
[2017-11-08 07:16] LABS: ANION GAP 6 (8-16); BLOOD UREA NITROGEN 25 mg/dL (7-18); CALCIUM 8.6 mg/dL (8.5-10.1); CHLORIDE 111 mmol/L (98-107); CO2 27 mmol/L (21-32); CREATININE 1.1 mg/dL (0.55-1.02); GLUCOSE,RANDOM 82 mg/dL (74-106); POTASSIUM 3.9 mmol/L (3.5-5.1); SODIUM 144 mmol/L (136-145)
[2017-11-08] MEDS ORDERED: amLODIPine BESYLATE 10 MG TABLET (FP) PO SCH (10:00)
[2017-11-08] MEDS ORDERED: LOSARTAN POTASSIUM 50 MG TABLET (FP) PO SCH (10:00)
[2017-11-08] MEDS: LABETALOL HCL 200 MG TABLET (FP) PO SCH (10:07)
[2017-11-08] MEDS: PANTOPRAZOLE 40 MG TABLET (FP) PO SCH (10:08)
[2017-11-08] MEDS: levETIRAcetam XR 500 MG TAB PO SCH (10:10)
--- NOTE | 2017-11-08 11:01 | PN ---
Teaching Attending Note Name of Resident: Adams Black ATTENDING PHYSICIAN STATEMENT I saw and evaluated the patient. I reviewed the resident's note and discussed the case with the resident. I agree with the resident's findings and plan as documented. SUBJECTIVE: No fever or chills. no CP or SOB. discomfort at the site of chest tube on R side with inspiration OBJECTIVE: NAD Cv: RRR, 2/6 SM at apex , mild JVD ( improved from yesterday ) Lungs: CTAB, decreased breath sounds at R base . Ext: no edema ASSESSMENT AND PLAN: 67 y/o lady with h/o HTN, DM, Schizofrenia ,and h/o DVT who presented with SOB and was found to have acute pneumothorax. 1- R pneumothorax: resolved on Today's cxray ( repeated due to the chin artifact ) 2- DEZ on CKD: Cr at base line 3- Hypertensive urgency: BP improved with resuming home hydralazine and losartan - cont norvasc ,labetalol, losartan and hyralazine . adjust dosing ( to home dose ) - meds obtained form assisted living, was on lisinopril/HCTZ in addition to all above. risk of renal impairment/hyperkalemia is high in this elderly lady. will dc HCTZ/lisinopril and cont only HCTZ 4- NSTEMI: cont ASA and BB . 5- h/o DVT: -resume xarelto 6- Dehydaration with hypernatremia : cont oral hydration. Na is normal today 7- DM : A1c 6.9. will start metformin at dc ( not on any Dm at home ) dispo : DC to assisted living today. PT wval repeated today .
--- NOTE | 2017-11-08 12:11 | PN ---
Progress Note (short form) - Note Progress Note: PULMONARY Denies shortness of breath or chest pain. CXR this AM without pneumothorax. Ambulating with assistance. Last Vital Signs Temp Pulse Resp BP Pulse Ox 98.4 F 55 L 18 171/86 99 11/08/17 02:05 11/08/17 07:55 11/08/17 07:59 11/08/17 07:55 11/08/17 07:59 Gen: NAD at rest Heart: RRR Lung: decreased breath sounds at the bases Abd: soft, nontender Ext: no edema CBC, BMP 11/08/17 06:05 11/08/17 06:05 Active Medications Acetaminophen (Tylenol -) 650 mg PO Q4H PRN PRN Reason: Fever Or Pain 3-6 Last Admin: 11/06/17 10:46 Dose: 650 mg Albuterol Sulfate (Ventolin 0.083% Nebulizer Soln -) 1 amp NEB Q6H PRN PRN Reason: SHORT OF BREATH/WHEEZING Last Admin: 11/06/17 20:55 Dose: 1 amp Amlodipine Besylate (Norvasc -) 10 mg PO DAILY [facility] Last Admin: 11/08/17 10:07 Dose: 10 mg Hydralazine HCl (Apresoline -) 50 mg PO TID [facility] Labetalol HCl (Normodyne -) 400 mg PO BID [facility] Last Admin: 11/08/17 10:07 Dose: 400 mg Levetiracetam (Keppra Xr -) 500 mg PO BID [facility] Last Admin: 11/08/17 10:10 Dose: 500 mg Losartan Potassium (Cozaar -) 50 mg PO DAILY [facility] Last Admin: 11/08/17 10:08 Dose: 50 mg Mirtazapine (Remeron -) 15 mg PO HS [facility] Last Admin: 11/07/17 21:56 Dose: 15 mg Pantoprazole Sodium (Protonix -) 40 mg PO DAILY [facility] Last Admin: 11/08/17 10:08 Dose: 40 mg Rivaroxaban (Xarelto -) 20 mg PO DAILY@1800 [facility] A/P Right Spontaneous Pneumothorax s/p pigtail insertion/removal +Troponins likely Demand Ischemia HTN DM Schizophrenia h/o DVT Smoker - removed pigtail catheter - repeat CXR in AM - BP control - DVT prophylaxis - d/c planning
--- NOTE | 2017-11-08 12:23 | DS ---
Physical Exam: SUBJECTIVE: Pt reports sleeping well last night and with mild discomfort from pigtail site. Denies shortness of breath. OBJECTIVE: Vital Signs Period Temp Pulse Resp BP Sys/Miller Pulse Ox Last 24 Hr 98.3 F-98.4 F 55-76 18-21 151-189/85-110 99-99 PHYSICAL EXAM GENERAL: NAD, awake, alert, kyphotic and watching TV HEENT: NC/AT, EOMI, FIGUEROA, moist mucosa LUNGS: Good inspiratory effort, slightly diminished basilar breath sounds, incision site with bandage C/D/I HEART: RRR, S1, S2 without murmur ABDOMEN: Soft, nontender, nondistended, normoactive bowel sounds, no guarding EXTREMITIES: 2+ DP pulses, warm, no edema, no calf tenderness. LABS Laboratory Results - last 24 hr 11/05/17 11/05/17 11/05/17 05:44 11:11 16:43 WBC RBC Hgb Hct MCV MCH MCHC RDW Plt Count MPV Sodium Potassium Chloride Carbon Dioxide Anion Gap BUN Creatinine POC Glucometer 118.49232 251.22603 157.88908 Random Glucose Calcium 11/05/17 11/08/17 11/08/17 22:01 06:05 06:05 WBC 5.3 RBC 3.99 Hgb 10.6 L Hct 32.1 L MCV 80.4 MCH 26.7 MCHC 33.2 RDW 16.9 H Plt Count 195 MPV 9.4 Sodium 144 Potassium 3.9 Chloride 111 H Carbon Dioxide 27 Anion Gap 6 L BUN 25 H Creatinine 1.1 H POC Glucometer 184.59871 Random Glucose 82 Calcium 8.6 HOSPITAL COURSE: Date of Admission:10/31/17 Date of Discharge: 11/08/17 Pt was admitted on 10/31/17 due to shortness of breath while walking from her bed to the bathroom. Pt's roommate called for help and her facility called 911. Pt apparently fell on 10/19/17 onto her right side and was seen at [facility]. Here she was found to have R rib fractures and a mild-moderate R-sided PTX. Pigtail was inserted into pt's R side (placement confirmed by CXR) and set to wall suction. CT surgery and pulmonology was consulted and pt was put on nasal cannula and laid flat. In addition, pt's initial presentation was noted for elevated troponin for which received ASA 325mg and Dr. Meehan was consulted. Finally, pt was hyperglycemic initially which an A1c was drawn revealing 6.9%. During pt's hospital course, she experienced bleeding from her pigtail site with some sangrinous secretions from her catheter so her Xarelto was discontinued at this point. She continued to have troponins drawn which trended down and was most likely explained via demand after PTX. Unfortunately, her Cr increased to a max of 2.2 while on NS@100cc/hr, and nephrology was consulted at this point who suggested that this increased was caused by her hemodynamic shifts with her HTN. Pt's Cr decreased back towards baseline and fluids were discontinued. Pt had her antihypertensive mediations placed back on to control her and pt continued to improve. Pt was then trialed on waterseal with some reaccumulation of PTX and first put back to -20 wall suction for another 2 day. Afterwards her leak ceased and we were able to wean her down to gravity and eventually remove her pigtail catheter from her chest without any reaccumulation of PTX. She is being discharged in stable condition back on her home medications with exception of her combination lisinopril/HCTZ. Her HCTZ 50mg PO qDaily has been prescribed separately to [facility] term [facility]. In addition due to her A1c as mentioned earlier, her Metformin ER 500mg qDaily is being prescribed to her as well. She has instructions to follow-up with pulmonology for her PTX status, and her primary for BMP testing 1 week later due to her DEZ as described above. Additional Imagin11/01/17 Echocardiogram: LV size, thickness, and function are normal; RV normal size and function; Mod TR. 10/31/17: (initial CXR) R PTX that appears to be localized in the R upper chest with compressive atelectasis of the R mid and lower lung. Subsegmental atelectasis in the L lung base 10/31/17: (after pigtail placement): Interval insertion of R pigtail catheter/ chest tube with its tip projecting over the R lung base medially. Previously visualized R upper chest PTX has significantly decreased in size with now only questionable residual apical PTX present 11/01/17 (after suction 24h CXR): R PTX with R base atelectasis remains 11/02/17 (prior to water seal placement): R basilar pigtail, no large PTX seen, resolving atelectatic changes 11/02/17 (after water seal trial) CXR: Residual R PTX has increased in size since immediate prior CXR 11/03/17 CXR: A single view of the chest again reveals a R chest tube with fluid and atelectasis at the right base with a right apical pneumothorax 11/07/17 CXR: R pleural effusion; NO PTX seen 11/08/17 (FINAL) CXR: R base fluid and infiltrate with some increased marking at the L base. Minutes to complete discharge: 37 Discharge Summary Reason For Visit: NSTEMI; PNEUMOTHORAX Current Active Problems Acute kidney failure (Acute) Hypertensive urgency (Acute) Hypoxemia (Acute) NSTEMI (non-ST elevated myocardial infarction) (Acute) Pneumothorax (Acute) Hypertension (Chronic) Condition: Stable - Instructions Diet, Activity, Other Instructions: You were seen here for your trouble breathing found to have a dropped lung and some rib fractures from your previous fall. Please continue to use an incentive spirometer for your breathing exercises to prevent pneumonia while you are healing from your rib fractures. You are also in a diabetic range of sugars; however this can be continued with oral medications. MEDICATIONS: Please stop taking your Lisinopril/HCTZ combo pill as this caused your kidneys to be affected --You can continue HCTZ 50mg ONCE daily by mouth as this will help your blood pressure as well --The separate medication has been sent to your pharmacy You will be given Metformin Hcl ER 500mg ONCE daily by mouth to take for your sugars --This medication has been sent to your pharmacy Please avoid ibuprofen as this can impact your kidneys FOLLOW-UP: Please follow-up with Dr. Galvin within 1 week to discuss about blood pressure control and your combo pill --You will also need repeat basic panel for your kidney function in 1 week Please follow-up with Dr. Rajan regarding our PTX and to discuss your lungs further. Referrals: Gissell aGlvin MD [Staff Physician] - Aj Rajan MD, MD [Staff Physician] - Disposition: [facility] - Home Medications Comprehensive Discharge Medication List: Ambulatory Orders Amlodipine Besylate [Norvasc -] 10 mg PO DAILY 01/28/14 Labetalol HCl [Normodyne -] 400 mg PO Q12H 01/28/14 Levetiracetam [Levetiracetam ER] 500 mg PO BID 01/28/14 Losartan Potassium 50 mg PO DAILY 01/28/14 Acetaminophen [Mapap] 650 mg PO BID 07/16/16 Mirtazapine [Remeron -] 15 mg PO HS 07/16/16 Pantoprazole Sodium 40 mg PO DAILY 07/16/16 hydrALAZINE HCL [Apresoline -] 50 mg PO TID 07/16/16 Rivaroxaban [Xarelto -] 20 mg PO DAILY 07/17/16 Hydrochlorothiazide [Hctz -] 50 mg PO DAILY #30 tablet 11/08/17 Metformin HCl [Metformin HCl ER] 500 mg PO DAILY #30 [id number] 11/08/17 Simvastatin 5 mg PO HS 11/08/17 This patient is new to me today: No Emergency Visit: No Critical Care patient: No - Discharge Referral Referred to [facility] No
--- NOTE | 2017-11-08 12:58 | PN ---
Progress Note (short form) - Note Progress Note: Renal follow up for DEZ on CKD Pt seen and examined in Tele awake and alert chest tube removed no sob, + cough making urine, no abd pain, flank pain, fever, chills Vital Signs Temperature 98.4 F 11/08/17 02:05 Pulse Rate 55 L 11/08/17 07:55 Respiratory Rate 18 11/08/17 07:59 Blood Pressure 171/86 11/08/17 07:55 O2 Sat by Pulse Oximetry (%) 99 11/08/17 07:59 Intake & Output 11/05/17 11/06/17 11/07/17 11/08/17 23:59 23:59 23:59 23:59 Intake Total 470 840 260 Output Total 24 Balance 446 840 260 NAD awake and alert RRR CTA soft NT/ND no LE edema CBC, BMP 11/08/17 06:05 11/08/17 06:05 Laboratory Tests 11/08/17 06:05 Calcium 8.6 Current Medications Acetaminophen (Tylenol -) 650 mg PO Q4H PRN PRN Reason: Fever Or Pain 3-6 Last Admin: 11/06/17 10:46 Dose: 650 mg Albuterol Sulfate (Ventolin 0.083% Nebulizer Soln -) 1 amp NEB Q6H PRN PRN Reason: SHORT OF BREATH/WHEEZING Last Admin: 11/06/17 20:55 Dose: 1 amp Amlodipine Besylate (Norvasc -) 10 mg PO DAILY [facility] Last Admin: 11/08/17 10:07 Dose: 10 mg Hydralazine HCl (Apresoline -) 50 mg PO TID [facility] Labetalol HCl (Normodyne -) 400 mg PO BID [facility] Last Admin: 11/08/17 10:07 Dose: 400 mg Levetiracetam (Keppra Xr -) 500 mg PO BID [facility] Last Admin: 11/08/17 10:10 Dose: 500 mg Losartan Potassium (Cozaar -) 50 mg PO DAILY [facility] Last Admin: 11/08/17 10:08 Dose: 50 mg Mirtazapine (Remeron -) 15 mg PO HS [facility] Last Admin: 11/07/17 21:56 Dose: 15 mg Pantoprazole Sodium (Protonix -) 40 mg PO DAILY [facility] Last Admin: 11/08/17 10:08 Dose: 40 mg Rivaroxaban (Xarelto -) 20 mg PO DAILY@1800 LEV This is a 67 year old woman with PMhx of Hypertension, Schizophrenia, Former smoker, ? CKD (pervious Cr values 1.6-1.7) who presented with sob and found to have pneumothorax with DEZ. #DEZ on CKD #Pneumothorax #Hx of hypertension now with low BP #DM Renal function is improved and stable on Losartan 50mg Daily should follow up with PMD for repeat labs in 1-2 weeks of discharge d/c planning as per primary Lukas Barnett DO
[2017-11-08] MEDS ORDERED: hydrALAZINE HCL 50 MG TABLET (FP) PO SCH (14:00)
[2017-11-08 14:19] VITALS: BP 169/93; PULSE 56; TEMP 98.6
[2017-11-08] MEDS ORDERED: RIVAROXABAN 20 MG TABLET PO SCH (18:00)
== END 2017-11-08 16:59 | disposition home or self-care (01) | DRG 143 ==
LOC: JER 15:12 → JERBED 19:02 → JICU 22:34 → J2W 11-01 20:12
PROVIDERS: ADMIT Internal Medicine; ATTEND Internal Medicine
PROC: 0W9930Z Drainage of Right Pleural Cavity with Drainage Device, Percutaneous Approach (ICD-10-PCS; principal; 2017-11-01)
DX: J93.83 Other pneumothorax (principal); R09.02 Hypoxemia; E11.9 Type 2 diabetes mellitus without complications; F17.210 Nicotine dependence, cigarettes, uncomplicated; I21.4 Non-ST elevation (NSTEMI) myocardial infarction; J98.11 Atelectasis; I16.0 Hypertensive urgency; E86.0 Dehydration; S22.41XA Multiple fractures of ribs, right side, initial encounter for closed fracture; E87.0 Hyperosmolality and hypernatremia; N17.9 Acute kidney failure, unspecified; I12.9 Hypertensive chronic kidney disease with stage 1 through stage 4 chronic kidney disease, or unspecified chronic kidney disease; E11.22 Type 2 diabetes mellitus with diabetic chronic kidney disease; N18.9 Chronic kidney disease, unspecified; W19.XXXA Unspecified fall, initial encounter; Y93.9 Activity, unspecified; Y92.89 Other specified places as the place of occurrence of the external cause; Y99.9 Unspecified external cause status; F20.9 Schizophrenia, unspecified
CPT/HCPCS: 36415; 36600; 71045-TC-FY; 80048; 80053; 81003; 82375; 82550; 82553; 82803; 82962; 83036; 83050; 83605; 83735; 83880; 84100; 84484; 84550; 85025; 85027; 85610; 85730; 86850; 86900; 86901; 93005; 93010; 93306-TC; 94010; 94640; 97116-GP; 97161-GP; 99285-25; J7030; J7620

== ENCOUNTER 2017-11-09 09:38 | Observation (INO) | payer OTHER ==
--- NOTE | 2017-11-09 10:14 | PDOC ---
History of Present Illness - General History Source: Patient Exam Limitations: No Limitations - History of Present Illness Initial Comments: 11/09/17 12:15 The patient is a 67 year old female, with a significant past medical history of hypertension, diabetes, DVT on xerolto, schizophrenia, recent admission for pneumothorax(secondary to fall and subsequent rib fractures; discharged yesterday, who presents to the emergency department s/p unwitnessed mechanical fall earlier this morning. The patient reports she was reaching down to get her shoes, fell, hit her head on the closet door, and slid down the door to the floor. She denies any LOC, headache, changes in vision, dizziness, lightheadedness, weakness, numbness, or tingling. She denies any fever, chills, cough, headache, or dizziness. She denies any abdominal pain, nausea, or vomiting. Patient is on Xarelto, but has not taken her medications today. She denies any recent travel. Allergies: NKDA Past Surgical History: None reported Social History: Former smoker. No ETOH or recreational drug use. <Tanner Cornejo - Last Filed: 11/09/17 12:15> <Chava Lock - Last Filed: 11/09/17 17:33> - General Chief Complaint: Injury Stated Complaint: FALL Time Seen by Provider: 11/09/17 09:44 Past History <Tanner Cornejo - Last Filed: 11/09/17 12:15> - Past Medical History Cardiac Disorders: Yes (cardiac cath) COPD: No Diabetes: Yes HTN: Yes Hypercholesterolemia: Yes Psychiatric Problems: Yes (SCHIZOPHRENIA) Seizures: Yes Lung CA: Yes (SCHIZOPHRENIA) - Surgical History Cardiac Surgery: Yes (CARD CATH) - Immunization History Immunization Up to Date: Yes - Suicide/Smoking/Psychosocial Hx Smoking Status: Yes Smoking History: Current every day smoker Have you smoked in the past 12 months: Yes Number of Cigarettes Smoked Daily: 3 Information on smoking cessation initiated: No 'Breaking Loose' booklet given: 01/28/14 Hx Alcohol Use: No Drug/Substance Use Hx: No <Chava Lock - Last Filed: 11/09/17 17:33> - Past Medical History Allergies/Adverse Reactions: Allergies Allergy/AdvReac Type Severity Reaction Status Date / Time No Known Allergies Allergy Verified 11/09/17 09:55 Home Medications: Ambulatory Orders Amlodipine Besylate [Norvasc -] 10 mg PO DAILY 01/28/14 Labetalol HCl [Normodyne -] 400 mg PO Q12H 01/28/14 Levetiracetam [Levetiracetam ER] 500 mg PO BID 01/28/14 Losartan Potassium 50 mg PO DAILY 01/28/14 Acetaminophen [Mapap] 650 mg PO BID 07/16/16 Mirtazapine [Remeron -] 15 mg PO HS 07/16/16 Pantoprazole Sodium 40 mg PO DAILY 07/16/16 hydrALAZINE HCL [Apresoline -] 50 mg PO TID 07/16/16 Rivaroxaban [Xarelto -] 20 mg PO DAILY 07/17/16 Hydrochlorothiazide [Hctz -] 50 mg PO DAILY #30 tablet 11/08/17 Metformin HCl [Metformin HCl ER] 500 mg PO DAILY #30 [id number] 11/08/17 Simvastatin 5 mg PO HS 11/08/17 Albuterol Sulfate Inhaler - [Ventolin Hfa Inhaler -] 2 inh PO BID 11/09/17 Aspirin 81 mg PO DAILY 11/09/17 Trauma Specific PMHX - Complaint Specific PMHX Back Injury: No Neck Injury: No <Chava Lock - Last Filed: 11/09/17 17:33> Review of Systems - Review of Systems Able to Perform ROS?: Yes Comments:: 11/09/17 12:15 Constitutional: +Fall. Pt denies Fever, Chills, weakness HEENT: Denies vision changes, sore throat Respiratory: Denies cough, sob, hemoptysis Cardiac: Denies chest pain, palpitations, lightheadedness, leg swelling Abd/GI: Denies abd pain, nausea, vomiting, blood per rectum, melena, diarrhea : Denies dysuria, frequency, discharge Musculoskeletal: Denies back pain, joint swelling Skin: Denies bruising, erythema, rash Neurological: Denies headache, numbness, focal weakness, tingling, ataxia, weakness Hematologic: +History of blood clot. Denies anemia, easy bruising, easy bleeding <Cornejo,Giomilsy - Last Filed: 11/09/17 12:15> *Physical Exam - Vital Signs Last Vital Signs Temp Pulse Resp BP Pulse Ox 97.8 F 71 22 175/101 91 L 11/09/17 09:55 11/09/17 10:44 11/09/17 09:55 11/09/17 09:55 11/09/17 10:44 - Physical Exam Comments: 11/09/17 12:15 GENERAL: The patient is awake, alert, , Nontoxic - in no acute distress. HEAD: Normocephalic, mild tenderness and swelling in the R forehead EYES: extraocular movements intact, sclera anicteric, conjunctiva clear. ENT: Normal voice, Moist mucous membranes. NECK: Normal range of motion, supple LUNGS: No acute respiratory distress, rales at the bases b/l. HEART: Regular rate and rhythm, normal S1 and S2 without murmur, rub or gallop. ABDOMEN: Soft, nontender, No guarding, no rebound. . No CVA tenderness Back: No midline tenderness to the cervical, thoracic or lumbar spine Musculoskelatal: FROM of b/l shoulders, elbows, wrist. FROM of hips, knees, ankles - No signs of ecchymosis, erythema, or crepitus noted on palpation extremities, chest wall, clavicals, ribs, back. NEUROLOGICAL: No facial assymetry, Normal speech, moving all 4 extremities spontaneously and symmetrically PSYCH: Normal mood, normal affect. SKIN: Warm, Dry, normal turgor, wound in the R chest wall c/d/i (removed/ replaced dressing) <Tanner Cornejo - Last Filed: 11/09/17 12:15> - Vital Signs Last Vital Signs Temp Pulse Resp BP Pulse Ox 97.8 F 82 22 175/101 93 L 11/09/17 09:55 11/09/17 09:55 11/09/17 09:55 11/09/17 09:55 11/09/17 09:55 <Chava Lock - Last Filed: 11/09/17 17:33> Heart Score/ECG Review - ECG Impressions Comment:: 11/09/17 13:05 Twelve-lead EKG was performed and reviewed by me. There is normal sinus rhythm with a normal rate. rate of 78 twi in lateral leads <Chava Lock - Last Filed: 11/09/17 17:33> ED Treatment Course - LABORATORY CBC & Chemistry Diagram: 11/09/17 10:21 11/09/17 10:18 - ADDITIONAL ORDERS Additional order review: Laboratory Results 11/09/17 11/09/17 10:21 10:18 PT with INR 11.70 INR 1.04 Sodium 144 Potassium 3.5 Chloride 111 H Carbon Dioxide 26 Anion Gap 7 L BUN 28 H Creatinine 1.4 H Creat Clearance w eGFR 37.74 Random Glucose 82 Calcium 9.2 Total Bilirubin 1.0 D AST 28 ALT 18 Alkaline Phosphatase 127 H Total Protein 7.1 Albumin 3.1 L 11/09/17 10:21 RBC 4.44 MCV 80.0 MCHC 32.2 RDW 16.6 H MPV 9.4 Neutrophils % 80.9 D Lymphocytes % 12.6 D Monocytes % 5.6 Eosinophils % 0.5 D Basophils % 0.4 <Tanner Cornejo - Last Filed: 11/09/17 12:15> - LABORATORY CBC & Chemistry Diagram: 11/09/17 10:21 11/09/17 10:18 - RADIOLOGY Radiology Studies Ordered: Category Date Time Status HEAD CT WITHOUT CONTRAST [CT] Stat CT Scan 11/09/17 10:01 Ordered <Chava Lock - Last Filed: 11/09/17 17:33> Medical Decision Making - Medical Decision Making 11/09/17 10:14 67y F hx of htn, dvt on ac, recent fall with R rib fractures c/b ptx s/p pigtail cathter s/p removal and dic from hospital yesterday - the patient was at home this morning was reaching for something loss of balance fell forward hitting her head against a closet door and then falling on the floor. She denies any LOC, neck pain, back pain, chest pain, palpitations, acute shortness breath she does endorse mild pain when she is coughing or breathing really deeply on her right side. Denies any fever, chills. The patient denies any headache, blurry vision, vision changes, numbness, tingling, weakness. On exam the patient is well-appearing, in no distress, no focal bony tenderness or limitations of her range of motion the extremities. She has mild tenderness in the right forehead. Her wound site status posts pigtail removal on the right chest is clean dry and intact with a Xeroform and guaze that were replaced The patient's vital signs notable for mild hypoxia 93%, she does have rales bilaterally at the bases suspect this is atelectasis, this was present on x-ray discharged yesterday. Patient was not discharged on incentive spirometer will give the patient one here and encouraged her to use it. We'll obtain a CT of the head to rule out bleed. Will reassess 11/09/17 16:[address] head negative pt unable ambulate, suspect she may need PT due to 2 weeks of hospitalization 11/09/17 17:[address] fraser [facility]. dudley service stable for med surge Case discussed in detail with admitting physician including history, physical exam and ancillary studies. Admitting physician has assumed care for the patient, will follow all pending diagnostics and will complete the evaluation and treatment. <Chava Lock - Last Filed: 11/09/17 17:33> *DC/Admit/Observation/Transfer - Attestations Scribe Attestion: 11/09/17 12:15 Documentation prepared by Tanner Cornejo, acting as center medical and lab director for Chava Lock MD. <Tanner Cornejo - Last Filed: 11/09/17 12:15> - Discharge Dispostion Decision to Admit order: Yes <Chava Lock - Last Filed: 11/09/17 17:33> Diagnosis at time of Disposition: Anticoagulated, Unable to ambulate Head injury Qualifiers: Encounter type: initial encounter Qualified Code(s): S09.90XA - Unspecified injury of head, initial encounter - Discharge Dispostion Condition at time of disposition: Stable - Referrals Referrals: Jose Cruz Jerez [Primary Care Provider] -
[2017-11-09 10:44] LABS: BASO % 0.4 % (0-2.0); EOS % 0.5 % (0-4.5); HEMATOCRIT 35.6 % (32.4-45.2); HEMOGLOBIN 11.4 GM/dL (10.7-15.3); LYMPH % 12.6 % (8-40); MCH 25.7 pg (25.7-33.7); MCHC 32.2 g/dl (32.0-36.0); MEAN PLT VOLUME 9.4 fl (7.5-11.1); MONO % 5.6 % (3.8-10.2); NEUT % 80.9 % (42.8-82.8); PLATELET COUNT 213 K/MM3 (134-434); RBC 4.44 M/mm3 (3.60-5.2); RDW 16.6 % (11.6-15.6); WHITE BLOOD COUNT 7.4 K/mm3 (4.0-10.0)
[2017-11-09 11:03] LABS: INR 1.04 (0.82-1.09); PROTHROMBIN TIME (PATIENT) 11.7 SEC (9.7-13.0)
[2017-11-09 11:10] LABS: ALBUMIN 3.1 g/dl (3.4-5.0); ANION GAP 7 (8-16); BLOOD UREA NITROGEN 28 mg/dL (7-18); CALCIUM 9.2 mg/dL (8.5-10.1); CHLORIDE 111 mmol/L (98-107); CO2 26 mmol/L (21-32); CREATININE 1.4 mg/dL (0.55-1.02); GLUCOSE,RANDOM 82 mg/dL (74-106); POTASSIUM 3.5 mmol/L (3.5-5.1); SGOT/AST 28 U/L (15-37); SGPT/ALT 18 U/L (12-78); SODIUM 144 mmol/L (136-145); TOT PROT 7.1 g/dl (6.4-8.2)
[2017-11-09 11:11] LABS: ALK PHOS 127 U/L (45-117)
[2017-11-09] MEDS ORDERED: ACETAMINOPHEN 325 MG TABLET (FP) PO PRN (18:09)
--- NOTE | 2017-11-09 18:21 | PN ---
Teaching Attending Note Name of Resident: Day Godfrey ATTENDING PHYSICIAN STATEMENT I saw and evaluated the patient. I reviewed the resident's note and discussed the case with the resident. I agree with the resident's findings and plan as documented. SUBJECTIVE:67 y/o lady with h/o HTN, DM, Schizophrenia ,and h/o DVT who was discharged yesterday after 8 day hospital course that she presented with mechanical fall with PTX complicated with NSTEMI which was medically managed. Pt presents today after falling. Pt ws walking to the closet went to pick something off the floor and fell. states she landed on her buttocks and does not think she hit her head however does have a large ecchymosis on her R sided of forehead. denies CP, SOB< fever, chills, N/V/C/D, tonic/clonic movement, bladder/bowel incontinence, LOC, blurred vision, LAWSON, tinnitus OBJECTIVE: Last Vital Signs Temp Pulse Resp BP Pulse Ox 97.7 F 74 22 172/100 99 11/09/17 14:19 11/09/17 14:19 11/09/17 14:19 11/09/17 14:19 11/09/17 14:30 General NAD HEENT PERRL, + cataracts, ecchymosis to R sided forehead CV S1 S2 RRR no murmur/rub/gallop Lungs CTA B/L poor inspiratory effort Abdomen soft NT/ND Extremities no pedal edema Neuro CN grossly intact, strength reduced but equal in all 4 extremities ASSESSMENT AND PLAN: 67 y/o lady with h/o HTN, DM, Schizophrenia ,DVT, NSTEMI presented to the hospital after mechanical fall 1. Mechanical fall- medicine observation. initial head CT negative. no EKG changes. will repeat head CT in 12 Hours. hold asa/xarelto during this time. PT eval. will need REJI placement 2. HTN- uncontrolled. did not take her morning medications. will re-start now. will want to slowly lower the BP 3. DEZ- likely dehydration vs medication. hold hctz/metformin/losartan. give low dose IVF. avoid nephrotoxic agents 4. DM- hold oral medication. start iss, diabetic diet 5. Schizophrenia- cont remeron 6. DVT- hold xarelto until repeat CT 7. NSTEMI- hold asa until repeat CT 8. DVT ppx- SCD. would hold heparin sq until repeat CT 9. will need REJI placement. pt would prefer to go home and does not want rehab. open to speaking with her kids in the morning to see if they think she should go.
[2017-11-09] MEDS ORDERED: SODIUM CHLORIDE 1,000 ML IV SCH (18:30)
--- NOTE | 2017-11-09 18:34 | HP ---
CHIEF COMPLAINT: R sided pain s/p fall PCP: Dr. Galvin HISTORY OF PRESENT ILLNESS: A 67 yo F with PMHx of HTN, IDDM, Schizophrenia, everyday smoker BIBEMS from [facility] ([facility] resident), DVT on xarelto with recent discharge yesterday for pneumothorax and NSTEMI presenting after a fall with R sided chest pain this am. The pain is located on the R side of her chest where she recently had a pigtail for pneumothorax. The pain is worse when she takes a deep breath and has not changed since she left the hospital yesterday. Patient ambulates with a cane. She woke up this am, and with the help of a cane walked to the closet to change before breakfast at 7am. She noticed the bottom of her cane was removed, so bent forward to pick it up, when she fell, landing on her buttocks. The fall was unwitnessed, and she does not remember hitting her head, but noticed a bump on the right side of her face. No bleeding from the bump, no bleeding from her nose or mouth, or any other orifice. Pt denies dizziness, chest pain or palpitations prior to the fall. She denies fecal or urinary incontinence. Pt denied any seizures or syncope. Her aide came in about 7.30am, found her on the floor and called an ambulance. Pt denies taking any of her medications today, including ASA and xarelto. Pt was noted in the ED to have been sating initially in around 92-93% on room air, which improved with NC to 99%(does not use home O2) but eventually resolved . ER course was notable for: (1) CT head- no acute pathology (2) EKG-NSR, Vent rate 78bpm, QT/QTc-402/458 (3) CBC- H&H- 11.4/35.6, BUN/Cr- 28/1.4 (4) BP-175/101 (5)CXR- bilateral improvements Recent Travel: PAST MEDICAL HISTORY: HTN IDDM Schizophrenia everyday smoker D DVT on xarelto pneumothorax s/p R rib# s/p fall NSTEMI PAST SURGICAL HISTORY: Social History: Smoking:Everyday smoker 2cigs/day Alcohol:Denies Drugs: Family History: Allergies No Known Allergies Allergy (Verified 05/18/18 09:55) HOME MEDICATIONS: Home Medications Medication Instructions Recorded Amlodipine Besylate [Norvasc -] 10 mg PO DAILY 01/28/14 Labetalol HCl [Normodyne -] 400 mg PO Q12H 01/28/14 Levetiracetam [Levetiracetam ER] 500 mg PO BID 01/28/14 Losartan Potassium 50 mg PO DAILY 01/28/14 Acetaminophen [Mapap] 650 mg PO BID 07/16/16 Mirtazapine [Remeron -] 15 mg PO HS 07/16/16 Pantoprazole Sodium 40 mg PO DAILY 07/16/16 hydrALAZINE HCL [Apresoline -] 50 mg PO TID 07/16/16 Rivaroxaban [Xarelto -] 20 mg PO DAILY 07/17/16 Hydrochlorothiazide [Hctz -] 50 mg PO DAILY #30 tablet 11/08/17 Metformin HCl [Metformin HCl ER] 500 mg PO DAILY #30 [id number] 11/08/17 Simvastatin 5 mg PO HS 11/08/17 Albuterol Sulfate Inhaler - 2 inh PO BID 11/09/17 [Ventolin Hfa Inhaler -] Aspirin 81 mg PO DAILY 11/09/17 REVIEW OF SYSTEMS CONSTITUTIONAL: Absent: fever, chills, diaphoresis, generalized weakness, malaise, loss of appetite, weight change HEENT: Absent: rhinorrhea, nasal congestion, throat pain, throat swelling, difficulty swallowing, mouth swelling, ear pain, eye pain, visual changes CARDIOVASCULAR: Absent: chest pain, syncope, palpitations, irregular heart rate, lightheadedness , peripheral edema RESPIRATORY: Pleuritic painAbsent: cough, shortness of breath, dyspnea with exertion, orthopnea, wheezing, stridor, hemoptysis GASTROINTESTINAL: Absent: abdominal pain, abdominal distension, nausea, vomiting, diarrhea, constipation, melena, hematochezia GENITOURINARY: Absent: dysuria, frequency, urgency, hesitancy, hematuria, flank pain, genital pain MUSCULOSKELETAL: Absent: myalgia, arthralgia, joint swelling, back pain, neck pain SKIN: Swelling+ Absent: rash, itching, pallor HEMATOLOGIC/IMMUNOLOGIC: Absent: easy bleeding, easy bruising, lymphadenopathy, frequent infections ENDOCRINE: Absent: unexplained weight gain, unexplained weight loss, heat intolerance, cold intolerance NEUROLOGIC: Absent: headache, focal weakness or paresthesias, dizziness, unsteady gait, seizure, mental status changes, bladder or bowel incontinence PSYCHIATRIC: Absent: anxiety, depression, suicidal or homicidal ideation, hallucinations. PHYSICAL EXAMINATION Vital Signs - 24 hr 11/09/17 11/09/17 11/09/17 09:55 10:44 14:19 Temperature 97.8 F 97.7 F Pulse Rate 82 71 Pulse Rate [ 74 Left Radial] Respiratory 22 22 Rate Blood Pressure 175/101 Blood Pressure 172/100 [Right Arm] O2 Sat by Pulse 93 L 91 L 92 L Oximetry (%) 11/09/17 14:30 Temperature Pulse Rate Pulse Rate [ Left Radial] Respiratory Rate Blood Pressure Blood Pressure [Right Arm] O2 Sat by Pulse 99 Oximetry (%) GENERAL: Awake, alert, and fully oriented, in no acute distress. HEAD: Normal obvious bleeding. 2x2cm swelling on R forehead. Non tender, non fluant, firm and non bleeding. EYES: Pupils equal, round and reactive to light, extraocular movements intact EARS, NOSE, THROAT: Moist mucous membranes. NECK: Normal range of motion, supple LUNGS: Reduced breath sounds R lung base, no wheezes. R Posterior chest apposed surgical wound (site of previous pigtail), clean dry, non tender HEART: Regular rate and rhythm, normal S1 and S2 ABDOMEN: Soft, nontender, not distended, normoactive bowel sounds, midline MUSCULOSKELETAL: Normal range of motion at all joints. No bony deformities or tenderness. No CVA tenderness. UPPER EXTREMITIES: 2+ pulses, warm, well-perfused. No cyanosis. No clubbing. No peripheral edema. LOWER EXTREMITIES: 2+ pulses, warm, well-perfused. No calf tenderness. No peripheral edema. Onychomycosis bilaterally NEUROLOGICAL: Cranial nerves II-XII intact. Normal speech. Normal gait. PSYCHIATRIC: Cooperative. Good eye contact. Appropriate mood and affect. Laboratory Results - last 24 hr 11/09/17 11/09/17 11/09/17 10:18 10:21 10:21 WBC 7.4 D RBC 4.44 Hgb 11.4 Hct 35.6 MCV 80.0 MCH 25.7 MCHC 32.2 RDW 16.6 H Plt Count 213 MPV 9.4 Neutrophils % 80.9 D Lymphocytes % 12.6 D Monocytes % 5.6 Eosinophils % 0.5 D Basophils % 0.4 PT with INR 11.70 INR 1.04 Sodium 144 Potassium 3.5 Chloride 111 H Carbon Dioxide 26 Anion Gap 7 L BUN 28 H Creatinine 1.4 H Creat Clearance w eGFR 37.74 Random Glucose 82 Calcium 9.2 Total Bilirubin 1.0 D AST 28 ALT 18 Alkaline Phosphatase 127 H Total Protein 7.1 Albumin 3.1 L Ambulatory Orders Amlodipine Besylate [Norvasc -] 10 mg PO DAILY 01/28/14 Labetalol HCl [Normodyne -] 400 mg PO Q12H 01/28/14 Levetiracetam [Levetiracetam ER] 500 mg PO BID 01/28/14 Losartan Potassium 50 mg PO DAILY 01/28/14 Acetaminophen [Mapap] 650 mg PO BID 07/16/16 Mirtazapine [Remeron -] 15 mg PO HS 07/16/16 Pantoprazole Sodium 40 mg PO DAILY 07/16/16 hydrALAZINE HCL [Apresoline -] 50 mg PO TID 07/16/16 Rivaroxaban [Xarelto -] 20 mg PO DAILY 07/17/16 Hydrochlorothiazide [Hctz -] 50 mg PO DAILY #30 tablet 11/08/17 Metformin HCl [Metformin HCl ER] 500 mg PO DAILY #30 [id number] 11/08/17 Simvastatin 5 mg PO HS 11/08/17 Albuterol Sulfate Inhaler - [Ventolin Hfa Inhaler -] 2 inh PO BID 11/09/17 Aspirin 81 mg PO DAILY 11/09/17 ASSESSMENT/PLAN: A 67 yo F with PMHx of HTN, IDDM, Schizophrenia, everyday smoker BIBEMS from [facility] ([facility] resident), DVT on xarelto with recent discharge yesterday for pneumothorax and NSTEMI presenting after a fall with R sided chest pain this am. #s/p Fall: Likely mechanical, Px was on ASA and xarelto Initial CT-No acute pathology Repeat CT head-for 6am tomorrow to R/o bleed Tylenol for pain Hold ASA and Xarelto social work request- pt wants to remain at home Would probably need a walker and not cane PT #DEZ Cr-1.4 Baseline Cr- appears to be 1.1 Gentle hydration @50/min of NS Hold hydralazine, losartan, HCTZ #HTN BP-175/101 Pt did not take home meds Will bring down gradually with home Labetalol #Depression Cont home remoron #s/p Pneumothorax CXR- improving No SOB Monitor #Dispo: Obs Visit type - Emergency Visit Emergency Visit: Yes ED Registration Date: 11/09/17 Care time: The patient presented to the Emergency Department on the above date and was hospitalized for further evaluation of their emergent condition. - New Patient This patient is new to me today: No - Critical Care Critical Care patient: No Hospitalist Screening - Colonoscopy Questionnaire Colonoscopy Questionnaire: Colonoscopy Questionnaire - Patient: 50 - 75 years old and never had a screening colonoscopy: Yes History of colon or rectal polyps, or CA: Unknown History of IBD, Crohn's disease or UC: Unknown History of abdominal radiation therapy as a child: Unknown - Relative: 1 with colon or rectal CA, or polyps at age 60 or younger: Unknown Colon or rectal CA diagnosed at age 45 or younger: Unknown Multiple relatives with colon or rectal CA: Unknown - Outcome: Screening Result: Positive Screen
--- NOTE | 2017-11-09 18:52 | HP ---
CHIEF COMPLAINT: s/p fall PCP: Kamar HISTORY OF PRESENT ILLNESS: The patient is a 67yow with PMHx HTN, DMII, Schizophrenia, DVT on Xarelto, current smoker that presented today s/p fall about 7 AM today. She woke up in her usual state of health, went to the closet and tripped. She feel on the back and doesn't remember if she hit her head. The patient stayed on the floor and was found by visiting nurse that called EMS. The patient denies feeling dizzy before the incident, denies palpitations, urination, defecation, LOC, chest pain. She was discharged from [facility] yesterday where she was admitted for s/p fall, rib fracture, complicated by pneumothorax, s/p pigtail. [facility]. Today she also states that the pain on right side of her chest were she had pigtail, is still present. She didn't take any of her medications today. ER course was notable for: (1)CBC, CMP (2)Ct head (3)EKG Recent Travel: No PAST MEDICAL HISTORY: as above PAST SURGICAL HISTORY: cardiac cath Social History: Smoking:few cigs/few days Alcohol:denies Drugs: denies Ambulate with cane. Family History: N/A Allergies No Known Allergies Allergy (Verified 11/09/17 09:55) HOME MEDICATIONS: Home Medications Medication Instructions Recorded Amlodipine Besylate [Norvasc -] 10 mg PO DAILY 01/28/14 Labetalol HCl [Normodyne -] 400 mg PO Q12H 01/28/14 Levetiracetam [Levetiracetam ER] 500 mg PO BID 01/28/14 Losartan Potassium 50 mg PO DAILY 01/28/14 Acetaminophen [Mapap] 650 mg PO BID 07/16/16 Mirtazapine [Remeron -] 15 mg PO HS 07/16/16 Pantoprazole Sodium 40 mg PO DAILY 07/16/16 hydrALAZINE HCL [Apresoline -] 50 mg PO TID 07/16/16 Rivaroxaban [Xarelto -] 20 mg PO DAILY 07/17/16 Hydrochlorothiazide [Hctz -] 50 mg PO DAILY #30 tablet 11/08/17 Metformin HCl [Metformin HCl ER] 500 mg PO DAILY #30 [id number] 11/08/17 Simvastatin 5 mg PO HS 11/08/17 Albuterol Sulfate Inhaler - 2 inh PO BID 11/09/17 [Ventolin Hfa Inhaler -] Aspirin 81 mg PO DAILY 11/09/17 REVIEW OF SYSTEMS CONSTITUTIONAL: Absent: fever, chills, diaphoresis, generalized weakness, malaise, loss of appetite, weight change HEENT: Absent: rhinorrhea, nasal congestion, throat pain, throat swelling, difficulty swallowing, mouth swelling, ear pain, eye pain, visual changes CARDIOVASCULAR: mild pain on right side of the chest Absent: chest pain, syncope, palpitations, irregular heart rate, lightheadedness , peripheral edema RESPIRATORY: Absent: cough, shortness of breath, dyspnea with exertion, orthopnea, wheezing GASTROINTESTINAL: Absent: abdominal pain, abdominal distension, nausea, vomiting, diarrhea, constipation GENITOURINARY: Absent: dysuria, frequency, urgency, hesitancy, hematuria, flank pain, genital pain MUSCULOSKELETAL: Absent: myalgia, arthralgia, joint swelling, back pain, neck pain ENDOCRINE: Absent: unexplained weight gain, unexplained weight loss, heat intolerance, cold intolerance NEUROLOGIC: Absent: headache, focal weakness or paresthesias, dizziness, unsteady gait, seizure, mental status changes, bladder or bowel incontinence PSYCHIATRIC: Absent: anxiety, depression PHYSICAL EXAMINATION Vital Signs - 24 hr 11/09/17 11/09/17 11/09/17 09:55 10:44 14:19 Temperature 97.8 F 97.7 F Pulse Rate 82 71 Pulse Rate [ 74 Left Radial] Respiratory 22 22 Rate Blood Pressure 175/101 Blood Pressure 172/100 [Right Arm] O2 Sat by Pulse 93 L 91 L 92 L Oximetry (%) 11/09/17 14:30 Temperature Pulse Rate Pulse Rate [ Left Radial] Respiratory Rate Blood Pressure Blood Pressure [Right Arm] O2 Sat by Pulse 99 Oximetry (%) GENERAL: Awake, alert, and fully oriented, in no acute distress, lying comfortably in bed. HEAD: No tenderness to palpation, 2x2 cm swelling in right forehead. EYES: Pupils equal, round and reactive to light, extraocular movements intact, sclera anicteric, conjunctiva clear. EARS, NOSE, THROAT: oropharynx clear without exudates. Moist mucous membranes. NECK: Normal range of motion, supple without lymphadenopathy, JVD, or masses. LUNGS: Breath sounds equal, clear to auscultation bilaterally. No wheezes, and no crackles. No accessory muscle use, 2 cm healing scar s/p pigtail. HEART: Regular rate and rhythm, normal S1 and S2 without murmur, rub or gallop. ABDOMEN: Soft, nontender, not distended, normoactive bowel sounds, no guarding, no rebound, no masses. No hepatomegaly or splenomegaly. MUSCULOSKELETAL: Normal range of motion at all joints. No bony deformities or tenderness. No CVA tenderness. UPPER EXTREMITIES: No peripheral edema. LOWER EXTREMITIES: 2+ pulses, warm. No peripheral edema. NEUROLOGICAL:Normal speech, no facial asymmetry, motor 5/5, sensation to light touch intact. PSYCHIATRIC: Cooperative. Good eye contact. Appropriate mood and affect. SKIN: Warm, dry, normal turgor, no rashes. Laboratory Results - last 24 hr 11/09/17 11/09/17 11/09/17 10:18 10:21 10:21 WBC 7.4 D RBC 4.44 Hgb 11.4 Hct 35.6 MCV 80.0 MCH 25.7 MCHC 32.2 RDW 16.6 H Plt Count 213 MPV 9.4 Neutrophils % 80.9 D Lymphocytes % 12.6 D Monocytes % 5.6 Eosinophils % 0.5 D Basophils % 0.4 PT with INR 11.70 INR 1.04 Sodium 144 Potassium 3.5 Chloride 111 H Carbon Dioxide 26 Anion Gap 7 L BUN 28 H Creatinine 1.4 H Creat Clearance w eGFR 37.74 Random Glucose 82 Calcium 9.2 Total Bilirubin 1.0 D AST 28 ALT 18 Alkaline Phosphatase 127 H Total Protein 7.1 Albumin 3.1 L ASSESSMENT/PLAN: The patient is a 67yow with PMHx HTN, IDDM, Schizophrenia, DVT on Xarelto, current smoker that presented today s/p fall about 7 AM today. She woke up in her usual state of health, went to the closet and tripped. She feel on the back and doesn't remember if she hit her head. The patient stayed on the floor and was found by visiting nurse that called EMS. S/p fall HTN DM Schizophrenia DEZ DVT on AC s/p pneumothorax s/p rib fracture seizure disorder We will continue to monitor the patient for possible bleeding -hold AC, Xarelto, ASA, Heparin -Will repeat CT without contrast in AM -will order neuro checks q4h -for DEZ te patient will continue NS at rate 50cc/hr -will continue ISS for DM and BGM ACHS -will continue home medications for HTN, seizures, DVT ppx: -scds F/E/N: S/no changes/Low Na/diabetic Disposition: Observation, waiting for social science analyst evaluation Full note to follow. Problem List - Problem (1) Anticoagulated Code(s): Z79.01 - RESIDENTIAL (CURRENT) USE OF ANTICOAGULANTS (2) Head injury Code(s): S09.90XA - UNSPECIFIED INJURY OF HEAD, INITIAL ENCOUNTER Qualifiers: Encounter type: initial encounter Qualified Code(s): S09.90XA - Unspecified injury of head, initial encounter (3) Unable to ambulate Code(s): R26.2 - DIFFICULTY IN WALKING, NOT ELSEWHERE CLASSIFIED (4) Acute kidney failure Code(s): N17.9 - ACUTE KIDNEY FAILURE, UNSPECIFIED (5) Hypertensive urgency Code(s): I16.0 - HYPERTENSIVE URGENCY (6) Hypoxemia Code(s): R09.02 - HYPOXEMIA (7) NSTEMI (non-ST elevated myocardial infarction) Code(s): I21.4 - NON-ST ELEVATION (NSTEMI) MYOCARDIAL INFARCTION (8) Pneumothorax Code(s): J93.9 - PNEUMOTHORAX, UNSPECIFIED (9) DJD (degenerative joint disease), lumbosacral Code(s): M51.37 - OTHER INTERVERTEBRAL DISC DEGENERATION, LUMBOSACRAL REGION (10) Hypertension Code(s): I10 - ESSENTIAL (PRIMARY) HYPERTENSION Visit type - Emergency Visit Emergency Visit: Yes ED Registration Date: 11/09/17 Care time: The patient presented to the Emergency Department on the above date and was hospitalized for further evaluation of their emergent condition. - New Patient This patient is new to me today: Yes Date on this admission: 11/09/17 - Critical Care Critical Care patient: No
[2017-11-09] MEDS ORDERED: PANTOPRAZOLE 40 MG TABLET (FP) ONE (18:55)
[2017-11-09] MEDS ORDERED: LABETALOL HCL 100 MG TABLET (FP) ONE ×2 (18:57→19:01)
[2017-11-09] MEDS: LABETALOL HCL 200 MG TABLET (FP) PO SCH ×2 (19:26→22:47)
[2017-11-09] MEDS: PANTOPRAZOLE 40 MG TABLET (FP) PO SCH (19:26)
[2017-11-09 20:20] VITALS: BMI 25.9
[2017-11-09] MEDS: INSULIN SLIDING SCALE (NOVOLOG) 1 VIAL SQ SCH (21:58)
[2017-11-09] MEDS ORDERED: ACETAMINOPHEN 650 MG/20.3 ML ORAL SOLUTION (CUPS) PO SCH (22:00)
[2017-11-09] MEDS: levETIRAcetam XR 500 MG TAB PO SCH (22:47)
[2017-11-09] MEDS: ATORVASTATIN CA 10 MG TABLET (FP) PO SCH (22:47)
[2017-11-10] MEDS: INSULIN SLIDING SCALE (NOVOLOG) 1 VIAL SQ SCH ×4 (06:08→21:34)
[2017-11-10 07:39] LABS: HEMATOCRIT 33.2 % (32.4-45.2); HEMOGLOBIN 10.9 GM/dL (10.7-15.3); MCH 26.6 pg (25.7-33.7); MCHC 32.7 g/dl (32.0-36.0); MEAN CELL VOLUME 81.4 fl (80-96); MEAN PLT VOLUME 9.2 fl (7.5-11.1); PLATELET COUNT 206 K/MM3 (134-434); RBC 4.07 M/mm3 (3.60-5.2); WHITE BLOOD COUNT 5.2 K/mm3 (4.0-10.0)
[2017-11-10 07:59] LABS: INR 1.04 (0.82-1.09); PROTHROMBIN TIME (PATIENT) 11.7 SEC (9.7-13.0)
[2017-11-10 08:00] LABS: ACTIVATED PTT 27.8 SECONDS (26.9-34.4)
[2017-11-10 08:28] LABS: CHLORIDE 113 mmol/L (98-107); POTASSIUM 3.9 mmol/L (3.5-5.1); SODIUM 146 mmol/L (136-145)
[2017-11-10] MEDS ORDERED: PT OWN MED DRAWER 7, Y5N ONE ×2 (08:54→20:56)
[2017-11-10 08:57] LABS: ALK PHOS 125 U/L (45-117); ANION GAP 7 (8-16); BILIRUBIN,TOTAL 0.8 mg/dL (0.2-1.0); BLOOD UREA NITROGEN 22 mg/dL (7-18); CALCIUM 8.7 mg/dL (8.5-10.1); CO2 26 mmol/L (21-32); CREATININE 1.3 mg/dL (0.55-1.02); GLUCOSE,RANDOM 72 mg/dL (74-106); MAGNESIUM 1.8 mg/dL (1.8-2.4); PHOSPHOROUS 3.5 mg/dL (2.5-4.9); SGOT/AST 31 U/L (15-37); SGPT/ALT 17 U/L (12-78)
[2017-11-10] MEDS: PANTOPRAZOLE 40 MG TABLET (FP) PO SCH (09:02)
[2017-11-10] MEDS: LABETALOL HCL 200 MG TABLET (FP) PO SCH ×2 (09:03→21:34)
[2017-11-10] MEDS: levETIRAcetam XR 500 MG TAB PO SCH ×2 (09:03→21:38)
--- NOTE | 2017-11-10 12:50 | PN ---
Progress Note (short form) - Note Progress Note: no complaints. denies CP, SOB, fever, chills, LAWSON, blurred vision, weakness/ numbness, N/V/C/D Current Medications Generic Name Dose Route Start Last Admin Trade Name Freq PRN Reason Stop Dose Admin Acetaminophen 650 mg 11/09/17 18:09 Tylenol - PO Q4H PRN PAIN LEVEL 1-5 Atorvastatin Calcium 10 mg 11/09/17 22:00 11/09/17 22:47 Lipitor - PO 10 mg HS LEV Administration Sodium Chloride 1,000 mls @ 50 mls/hr 11/09/17 18:30 11/09/17 19:43 Normal Saline - IV 11/10/17 18:22 50 mls/hr ASDIR LEV Administration Insulin Aspart 1 vial 11/09/17 22:00 11/10/17 06:08 Novolog Vial Sliding Scale - SQ Not Given ACHS LEV Protocol Labetalol HCl 400 mg 11/09/17 18:30 11/10/17 09:03 Normodyne - PO 400 mg BID LEV Administration Levetiracetam 500 mg 11/09/17 22:00 11/10/17 09:03 Keppra Xr - PO 500 mg BID LEV Administration Pantoprazole Sodium 40 mg 11/09/17 18:30 11/10/17 09:02 Protonix - PO 40 mg DAILY LEV Administration Last Vital Signs Temp Pulse Resp BP Pulse Ox 98.7 F 67 20 187/96 96 11/10/17 10:39 11/10/17 10:39 11/10/17 10:39 11/10/17 10:39 11/10/17 10:35 General NAD HEENT PERRL, + cataracts, ecchymosis to R sided forehead CV S1 S2 RRR no murmur/rub/gallop Lungs CTA B/L poor inspiratory effort Abdomen soft NT/ND Extremities no pedal edema Neuro CN grossly intact, strength equal in all 4 extremities CBCD WBC 5.2 K/mm3 (4.0-10.0) 11/10/17 06:00 RBC 4.07 M/mm3 (3.60-5.2) 11/10/17 06:00 Hgb 10.9 GM/dL (10.7-15.3) 11/10/17 06:00 Hct 33.2 % (32.4-45.2) 11/10/17 06:00 MCV 81.4 fl (80-96) 11/10/17 06:00 MCHC 32.7 g/dl (32.0-36.0) 11/10/17 06:00 RDW 17.0 % (11.6-15.6) H 11/10/17 06:00 Plt Count 206 K/MM3 (134-434) 11/10/17 06:00 MPV 9.2 fl (7.5-11.1) 11/10/17 06:00 CMP Sodium 146 mmol/L (136-145) H 11/10/17 06:00 Potassium 3.9 mmol/L (3.5-5.1) 11/10/17 06:00 Chloride 113 mmol/L (98-107) H 11/10/17 06:00 Carbon Dioxide 26 mmol/L (21-32) 11/10/17 06:00 Anion Gap 7 (8-16) L 11/10/17 06:00 BUN 22 mg/dL (7-18) H 11/10/17 06:00 Creatinine 1.3 mg/dL (0.55-1.02) H 11/10/17 06:00 Creat Clearance w eGFR 41.11 (>60) 11/10/17 06:00 Calcium 8.7 mg/dL (8.5-10.1) 11/10/17 06:00 Total Bilirubin 0.8 mg/dL (0.2-1.0) 11/10/17 06:00 AST 31 U/L (15-37) 11/10/17 06:00 ALT 17 U/L (12-78) 11/10/17 06:00 Alkaline Phosphatase 125 U/L (45-117) H 11/10/17 06:00 Total Protein 7.0 g/dl (6.4-8.2) 11/10/17 06:00 Albumin 3.0 g/dl (3.4-5.0) L 11/10/17 06:00 ASSESSMENT AND PLAN: 67 y/o lady with h/o HTN, DM, Schizophrenia ,DVT, NSTEMI presented to the hospital after mechanical fall 1. Mechanical fall- initial Head CT negative. will obtain repeat Head CT now. if negative will re-start asa/xarelto. PT eval. will need REJI placement 2. HTN- uncontrolled. only received labetolol. will re-start hydralazine. slowly re-start medications as needed. 3. DEZ- likely dehydration vs medication. improved. cont IVF now. hold hctz/ metformin/losartan. avoid nephrotoxic agents 4. DM- hold oral medication. cont iss, diabetic diet 5. Schizophrenia- cont remeron 6. DVT- hold xarelto until repeat CT 7. NSTEMI- hold asa until repeat CT 8. DVT ppx- SCD. would hold heparin sq until repeat CT 9. would benefit REJI. pt unsure what she wants to do. states will speak with sister regarding what she should do. asked her if there is any family member I can call and replied she will speak with them. expressed concern if she does go home as her last hospitalization lead to broken rib causing PTX. pt verbalized understanding of concern. Visit type - Emergency Visit Emergency Visit: Yes ED Registration Date: 11/09/17 Care time: The patient presented to the Emergency Department on the above date and was hospitalized for further evaluation of their emergent condition. - New Patient This patient is new to me today: No - Critical Care Critical Care patient: No - Discharge Referral Referred to [facility] Med P.C.: No
[2017-11-10] MEDS: hydrALAZINE HCL 25 MG TABLET (FP) PO SCH ×2 (14:12→21:33)
[2017-11-10] MEDS: ASPIRIN COATED 81 MG TABLET.EC PO SCH (15:48)
[2017-11-10] MEDS: RIVAROXABAN 20 MG TABLET PO SCH (17:14)
[2017-11-10] MEDS: ATORVASTATIN CA 10 MG TABLET (FP) PO SCH (21:33)
[2017-11-11] MEDS: hydrALAZINE HCL 25 MG TABLET (FP) PO SCH ×3 (06:35→21:02)
[2017-11-11] MEDS: INSULIN SLIDING SCALE (NOVOLOG) 1 VIAL SQ SCH ×4 (06:39→21:03)
[2017-11-11] MEDS ORDERED: INSULIN (NOVOLOG) ASPART 100 UNITS/ML 10ML VIAL ONE (06:42)
[2017-11-11] MEDS ORDERED: INSULIN (LEVEMIR) 100 UNITS/ML UNITS SQ ONE (06:43)
[2017-11-11] MEDS ORDERED: PT OWN MED DRAWER 7, Y5N ONE ×2 (10:47→20:24)
[2017-11-11] MEDS: ASPIRIN COATED 81 MG TABLET.EC PO SCH (10:55)
[2017-11-11] MEDS: PANTOPRAZOLE 40 MG TABLET (FP) PO SCH (10:55)
[2017-11-11] MEDS: levETIRAcetam XR 500 MG TAB PO SCH ×2 (10:55→21:02)
[2017-11-11] MEDS: LABETALOL HCL 200 MG TABLET (FP) PO SCH ×2 (10:56→21:03)
--- NOTE | 2017-11-11 11:41 | PN ---
Physical Exam: SUBJECTIVE: Patient seen and examined. She is feeling good today, no complaints. OBJECTIVE: Vital Signs Period Temp Pulse Resp BP Sys/Miller Pulse Ox Last 24 Hr 98.9 F-99.3 F 63-77 20-20 174-188/87-109 96-96 GENERAL: The patient is awake, alert, and fully oriented, in no acute distress. HEAD: Normal with no signs of trauma. EYES: extraocular movements intact, sclera anicteric, conjunctiva clear. ENT: moist mucous membranes. NECK: Trachea midline, full range of motion, supple. LUNGS: Breath sounds equal, clear to auscultation bilaterally, no wheezes, no crackles, no accessory muscle use. HEART: Regular rate and rhythm, S1, S2 without murmur, rub or gallop. EXTREMITIES: no edema. NEUROLOGICAL: Normal speech, no facia asymmetry, gait not observed. PSYCH: Normal mood, normal affect. SKIN: Warm, dry, normal turgor, no rashes. Laboratory Results - last 24 hr 11/10/17 11/11/17 16:54 06:34 POC Glucometer 107 73 Active Medications Generic Name Dose Route Start Last Admin Trade Name Freq PRN Reason Stop Dose Admin Acetaminophen 650 mg 11/09/17 18:09 Tylenol - PO Q4H PRN PAIN LEVEL 1-5 Aspirin 81 mg 11/10/17 15:30 11/11/17 10:55 Ecotrin - PO 81 mg DAILY LEV Administration Atorvastatin Calcium 10 mg 11/09/17 22:00 11/10/17 21:33 Lipitor - PO 10 mg HS LEV Administration Hydralazine HCl 50 mg 11/10/17 14:00 11/11/17 06:35 Apresoline - PO 50 mg TID LEV Administration Insulin Aspart 1 vial 11/09/17 22:00 11/11/17 06:39 Novolog Vial Sliding Scale - SQ Not Given ACHS LEV Protocol Labetalol HCl 400 mg 11/09/17 18:30 11/11/17 10:56 Normodyne - PO 400 mg BID LEV Administration Levetiracetam 500 mg 11/09/17 22:00 11/11/17 10:55 Keppra Xr - PO 500 mg BID LEV Administration Pantoprazole Sodium 40 mg 11/09/17 18:30 11/11/17 10:55 Protonix - PO 40 mg DAILY LEV Administration Rivaroxaban 20 mg 11/10/17 18:00 11/10/17 17:14 Xarelto - PO 20 mg DAILY@1800 LEV Administration ASSESSMENT/PLAN: The patient is 67 yo female with PMHx of HTN, IDDM, Schizophrenia, everyday smoker BIBEMS from [employer] DVT on xarelto with recent discharge for pneumothorax and NSTEMI presenting after a fall with R sided chest pain. s/p Fall: Likely mechanical, Px was on ASA and xarelto, we held it on admission, resumed now Initial CT-No acute pathology Repeat CT head- unchanged social work requested PT eval DEZ Cr-1.3, baseline Cr- appears to be 1.1 Hold hydralazine, losartan, HCTZ oral hydration HTN BP stable continue labetalol, Hydralazine History of seizures: -continue Keppra s/p Pneumothorax CXR- improved, no SOB, ordered new CXR today Dispo: Obs med surg, waiting for PT eval and social work follow up, placement Problem List - Problems (1) Anticoagulated Code(s): Z79.01 - AUTOMOBILE TESTER (CURRENT) USE OF ANTICOAGULANTS (2) Head injury Code(s): S09.90XA - UNSPECIFIED INJURY OF HEAD, INITIAL ENCOUNTER Qualifiers: Encounter type: initial encounter Qualified Code(s): S09.90XA - Unspecified injury of head, initial encounter (3) Unable to ambulate Code(s): R26.2 - DIFFICULTY IN WALKING, NOT ELSEWHERE CLASSIFIED (4) Acute kidney failure Code(s): N17.9 - ACUTE KIDNEY FAILURE, UNSPECIFIED (5) Hypertensive urgency Code(s): I16.0 - HYPERTENSIVE URGENCY (6) Hypoxemia Code(s): R09.02 - HYPOXEMIA (7) NSTEMI (non-ST elevated myocardial infarction) Code(s): I21.4 - NON-ST ELEVATION (NSTEMI) MYOCARDIAL INFARCTION (8) Pneumothorax Code(s): J93.9 - PNEUMOTHORAX, UNSPECIFIED (9) DJD (degenerative joint disease), lumbosacral Code(s): M51.37 - OTHER INTERVERTEBRAL DISC DEGENERATION, LUMBOSACRAL REGION (10) Hypertension Code(s): I10 - ESSENTIAL (PRIMARY) HYPERTENSION Visit type - Emergency Visit Emergency Visit: Yes ED Registration Date: 11/09/17 Care time: The patient presented to the Emergency Department on the above date and was hospitalized for further evaluation of their emergent condition. - New Patient This patient is new to me today: No - Critical Care Critical Care patient: No - Discharge Referral Referred to [facility] No
--- NOTE | 2017-11-11 14:35 | PN ---
Teaching Attending Note Name of Resident: Kitty Perkins ATTENDING PHYSICIAN STATEMENT I saw and evaluated the patient. I reviewed the resident's note and discussed the case with the resident. I agree with the resident's findings and plan as documented. SUBJECTIVE: OBJECTIVE: ASSESSMENT AND PLAN: this is a 67 y/o lady with h/o HTN, DM, Schizophrenia ,DVT, NSTEMI presented to the hospital after mechanical fall 1. Mechanical fal l- initial Head CT negative. repeat is negative for bleeding - PT eval. will need REJI placement - will restart rivaroxiban and aspirin 2. HTN- uncontrolled. only received labetolol. will re-start hydralazine. slowly re-start medications as needed. keep SBP between 140-160 3. DEZ- likely dehydration vs medication. improved. - cont IVF now. d/c hctz due to increase risk of polypharmacy, orthostatic change and hyponatremia - hold metformin - hold losartan. - avoid nephrotoxic agents 4. DM- hold oral medication. cont iss, diabetic diet 5. Schizophrenia- cont remeron 6. DVT- hold xarelto until repeat CT 7. NSTEMI- hold asa until repeat CT 8. DVT ppx- SCD. would hold heparin sq until repeat CT 9. would benefit REJI. pt unsure what she wants to do. states will speak with sister regarding what she should do. asked her if there is any family member I can call and replied she will speak with them. expressed concern if she does go home as her last hospitalization lead to broken rib causing PTX. pt verbalized understanding of concern.
[2017-11-11] MEDS: RIVAROXABAN 20 MG TABLET PO SCH (18:19)
[2017-11-11] MEDS: ATORVASTATIN CA 10 MG TABLET (FP) PO SCH (21:01)
[2017-11-12] MEDS: INSULIN SLIDING SCALE (NOVOLOG) 1 VIAL SQ SCH ×4 (06:14→21:30)
[2017-11-12] MEDS: hydrALAZINE HCL 25 MG TABLET (FP) PO SCH ×3 (06:15→21:16)
[2017-11-12 07:32] LABS: BASO % 1.2 % (0-2.0); EOS % 5.4 % (0-4.5); HEMATOCRIT 36.2 % (32.4-45.2); HEMOGLOBIN 11.7 GM/dL (10.7-15.3); LYMPH % 34.3 % (8-40); MCHC 32.3 g/dl (32.0-36.0); MEAN CELL VOLUME 80.7 fl (80-96); MEAN PLT VOLUME 9.5 fl (7.5-11.1); MONO % 8.7 % (3.8-10.2); NEUT % 50.4 % (42.8-82.8); PLATELET COUNT 219 K/MM3 (134-434); RBC 4.49 M/mm3 (3.60-5.2); RDW 17.4 % (11.6-15.6); WHITE BLOOD COUNT 5.3 K/mm3 (4.0-10.0)
[2017-11-12 08:14] LABS: ALBUMIN 2.9 g/dl (3.4-5.0); CHLORIDE 112 mmol/L (98-107); POTASSIUM 3.8 mmol/L (3.5-5.1); SODIUM 143 mmol/L (136-145)
[2017-11-12 08:19] LABS: ALK PHOS 116 U/L (45-117); ANION GAP 8 (8-16); BILIRUBIN,TOTAL 0.8 mg/dL (0.2-1.0); BLOOD UREA NITROGEN 21 mg/dL (7-18); CALCIUM 8.9 mg/dL (8.5-10.1); CO2 23 mmol/L (21-32); CREATININE 1.3 mg/dL (0.55-1.02); GLUCOSE,RANDOM 83 mg/dL (74-106); SGOT/AST 20 U/L (15-37); SGPT/ALT 16 U/L (12-78); TOT PROT 6.5 g/dl (6.4-8.2)
[2017-11-12] MEDS ORDERED: PT OWN MED DRAWER 7, Y5N ONE ×2 (09:36→18:26)
[2017-11-12] MEDS: amLODIPine BESYLATE 10 MG TABLET (FP) PO SCH (09:44)
[2017-11-12] MEDS: levETIRAcetam XR 500 MG TAB PO SCH ×2 (09:45→21:17)
[2017-11-12] MEDS: LABETALOL HCL 200 MG TABLET (FP) PO SCH ×2 (09:45→21:17)
[2017-11-12] MEDS: ASPIRIN COATED 81 MG TABLET.EC PO SCH (09:45)
[2017-11-12] MEDS: PANTOPRAZOLE 40 MG TABLET (FP) PO SCH (09:46)
--- NOTE | 2017-11-12 16:42 | PN ---
Teaching Attending Note Name of Resident: Day Godfrey ATTENDING PHYSICIAN STATEMENT I saw and evaluated the patient. I reviewed the resident's note and discussed the case with the resident. I agree with the resident's findings and plan as documented. SUBJECTIVE:asymptomatic. denies CP, SOB, fever, chills, N/V/C/D OBJECTIVE: Last Vital Signs Temp Pulse Resp BP Pulse Ox 98 F 70 20 154/86 94 L 11/12/17 14:27 11/12/17 14:27 11/12/17 14:11/12/17 14:11/12/17 11:40 General NAD ASSESSMENT AND PLAN: 67 y/o lady with h/o HTN, DM, Schizophrenia ,DVT, NSTEMI presented to the hospital after mechanical fall 1. Mechanical fall- initial and repeat Head CT negative. evaluated by PT and determined unable to ambulate safely alone and would benefit from REJI 2. HTN- uncontrolled. will start norvasc. cont labetolol and hydralazine. 3. DEZ- likely dehydration vs medication. improved. hold hctz/metformin/ losartan. avoid nephrotoxic agents 4. DM- hold oral medication. cont iss, diabetic diet 5. Schizophrenia- cont remeron 6. DVT- xarelto 7. NSTEMI- asa 8. DVT ppx- hep sq 9. expressed she wanted to go home but on further discussion is agreeable to REJI. SEAN sent. awaiting facility
[2017-11-12] MEDS: RIVAROXABAN 20 MG TABLET PO SCH (18:52)
[2017-11-12] MEDS: ATORVASTATIN CA 10 MG TABLET (FP) PO SCH (21:17)
--- NOTE | 2017-11-12 22:39 | PN ---
Physical Exam: SUBJECTIVE: Patient seen and examined. Feels much better and wants to go home. No SOB, no cough or chest pain. OBJECTIVE: Vital Signs Period Temp Pulse Resp BP Sys/Miller Pulse Ox Last 24 Hr 98 F-99.0 F 64-73 20-20 154-177/86-95 94-95 Vital Signs Temp 99 F 11/12/17 16:56 Pulse 73 11/12/17 16:56 Resp 20 11/12/17 18:00 BP 173/92 11/12/17 16:56 Pulse Ox 94 L 11/12/17 18:00 Intake & Output 11/11/17 11/12/17 11/12/17 23:59 11:59 23:59 Intake Total 440 1080 Output Total 1 Balance 440 1079 Intake: Oral 440 1080 Output: Urine 1 Void 1 Other: Voiding Method Incontinent Diaper Incontinent # Unmeasured Voids Void 2 Bowel Movement No No GENERAL: The patient is awake, alert, and fully oriented, in no acute distress. ENT: moist mucous membranes. LUNGS: Clean dressing at site of pig tail on R posterior chest. Clean and dry with well apposed edges. Reduced Breath sounds R lung base HEART: Regular rate and rhythm, S1, S2 without murmur, rub or gallop. ABDOMEN: Soft, nontender, nondistended, normoactive bowel sounds EXTREMITIES: 2+ pulses, warm, well-perfused, no edema. NEUROLOGICAL: AAo x3 Laboratory Results - last 24 hr 11/12/17 11/12/17 11/12/17 06:13 07:02 07:02 WBC 5.3 RBC 4.49 Hgb 11.7 Hct 36.2 MCV 80.7 MCH 26.0 MCHC 32.3 RDW 17.4 H Plt Count 219 MPV 9.5 Neutrophils % 50.4 D Lymphocytes % 34.3 D Monocytes % 8.7 Eosinophils % 5.4 H D Basophils % 1.2 Sodium 143 Potassium 3.8 Chloride 112 H Carbon Dioxide 23 Anion Gap 8 BUN 21 H Creatinine 1.3 H Creat Clearance w eGFR 41.11 POC Glucometer 94 Random Glucose 83 Calcium 8.9 Total Bilirubin 0.8 AST 20 ALT 16 Alkaline Phosphatase 116 Total Protein 6.5 Albumin 2.9 L Active Medications Generic Name Dose Route Start Last Admin Trade Name Freq PRN Reason Stop Dose Admin Acetaminophen 650 mg 11/09/17 18:09 Tylenol - PO Q4H PRN PAIN LEVEL 1-5 Amlodipine Besylate 10 mg 11/12/17 10:00 11/12/17 09:44 Norvasc - PO 10 mg DAILY LEV Administration Aspirin 81 mg 11/10/17 15:30 11/12/17 09:45 Ecotrin - PO 81 mg DAILY LEV Administration Atorvastatin Calcium 10 mg 11/09/17 22:00 11/12/17 21:17 Lipitor - PO 10 mg HS LEV Administration Hydralazine HCl 50 mg 11/10/17 14:00 11/12/17 21:16 Apresoline - PO 50 mg TID LEV Administration Insulin Aspart 1 vial 11/09/17 22:00 11/12/17 21:30 Novolog Vial Sliding Scale - SQ Not Given ACHS LEV Protocol Labetalol HCl 400 mg 11/09/17 18:30 11/12/17 21:17 Normodyne - PO 400 mg BID LEV Administration Levetiracetam 500 mg 11/09/17 22:00 11/12/17 21:17 Keppra Xr - PO 500 mg BID LEV Administration Pantoprazole Sodium 40 mg 11/09/17 18:30 11/12/17 09:46 Protonix - PO 40 mg DAILY LEV Administration Rivaroxaban 20 mg 11/10/17 18:00 11/12/17 18:52 Xarelto - PO 20 mg DAILY@1800 LEV Administration ASSESSMENT/PLAN: A 67 yo F with PMHx of HTN, IDDM, Schizophrenia, everyday smoker 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 #s/p Fall: Likely mechanical, Initial CT-No acute pathology Repeat CT head-no bleed Tylenol for pain Cont ASA and Xarelto PT Pt has agreed to go to a rehab since PT recommends she is unstable on her feet and is still at risk of a third fall. #DEZ Cr-1.4 Baseline Cr- appears to be 1.1 Gentle hydration @50/min of NS Resume hydralazine, cont amlodipine Hold losartan, HCTZ #HTN BP on presentation-175/101 Pt did not take home meds Cont Labetalol,hydralazine, cont amlodipine #Depression Cont home remoron #s/p Pneumothorax CXR- improving No SOB Monitor #FEN No ivf at this time Monnitor lytes Salt free diet #PPx On Xarelto Dispo For likely discharge tomorrow , if accepted at rehab Visit type - Emergency Visit Emergency Visit: Yes ED Registration Date: 11/09/17 Care time: The patient presented to the Emergency Department on the above date and was hospitalized for further evaluation of their emergent condition. - New Patient This patient is new to me today: No - Critical Care Critical Care patient: No - Discharge Referral Referred to [facility] Med P.C.: No
--- NOTE | 2017-11-13 00:08 | EKG ---
Test Reason : Blood Pressure : / mmHG Vent. Rate : 122 BPM Atrial Rate : 122 BPM P-R Int : 144 ms QRS Dur : 090 ms QT Int : 342 ms P-R-T Axes : 044 -37 104 degrees QTc Int : 487 ms SINUS TACHYCARDIA WITH OCCASIONAL PREMATURE VENTRICULAR COMPLEXES LEFT AXIS DEVIATION LEFT VENTRICULAR HYPERTROPHY WITH REPOLARIZATION ABNORMALITY ABNORMAL ECG WHEN COMPARED WITH ECG OF 09-NOV-2017 10:37, PREMATURE VENTRICULAR COMPLEXES ARE NOW PRESENT VENT. RATE HAS INCREASED BY 44 BPM Confirmed by CUCO SERRANO MD ([id number]) on 11/13/2017 12:08:34 AM Referred By: Marlen CHEN Confirmed By:CUCO SERRANO MD
--- NOTE | 2017-11-13 00:46 | EKG ---
Test Reason : Blood Pressure : / mmHG Vent. Rate : 078 BPM Atrial Rate : 078 BPM P-R Int : 154 ms QRS Dur : 100 ms QT Int : 402 ms P-R-T Axes : 042 -21 142 degrees QTc Int : 458 ms NORMAL SINUS RHYTHM VOLTAGE CRITERIA FOR LEFT VENTRICULAR HYPERTROPHY T WAVE ABNORMALITY, CONSIDER ANTEROLATERAL ISCHEMIA ABNORMAL ECG WHEN COMPARED WITH ECG OF 31-OCT-2017 15:41, T WAVE INVERSION MORE EVIDENT IN ANTEROLATERAL LEADS Confirmed by ZACH NOBLE, CUCO ([id number]) on 11/13/2017 12:45:42 AM Referred By: Confirmed By:CUCO SERRANO MD
[2017-11-13] MEDS: hydrALAZINE HCL 25 MG TABLET (FP) PO SCH ×2 (05:57→13:29)
[2017-11-13] MEDS: INSULIN SLIDING SCALE (NOVOLOG) 1 VIAL SQ SCH ×2 (06:04→11:34)
[2017-11-13 08:12] LABS: HEMOGLOBIN 10.4 GM/dL (10.7-15.3); MCH 26.1 pg (25.7-33.7); MCHC 32.4 g/dl (32.0-36.0); MEAN CELL VOLUME 80.6 fl (80-96); MEAN PLT VOLUME 9.3 fl (7.5-11.1); PLATELET COUNT 207 K/MM3 (134-434); RBC 3.97 M/mm3 (3.60-5.2); RDW 17.2 % (11.6-15.6); WHITE BLOOD COUNT 6.2 K/mm3 (4.0-10.0)
[2017-11-13 08:41] LABS: CHLORIDE 111 mmol/L (98-107); SODIUM 143 mmol/L (136-145)
[2017-11-13] MEDS ORDERED: PT OWN MED DRAWER 7, Y5N ONE (09:11)
[2017-11-13] MEDS: ASPIRIN COATED 81 MG TABLET.EC PO SCH (09:14)
[2017-11-13] MEDS: levETIRAcetam XR 500 MG TAB PO SCH (09:15)
[2017-11-13] MEDS: PANTOPRAZOLE 40 MG TABLET (FP) PO SCH (09:15)
[2017-11-13] MEDS: amLODIPine BESYLATE 10 MG TABLET (FP) PO SCH (09:15)
[2017-11-13] MEDS: LABETALOL HCL 200 MG TABLET (FP) PO SCH (09:15)
[2017-11-13 09:41] LABS: ANION GAP 9 (8-16); BLOOD UREA NITROGEN 26 mg/dL (7-18); CALCIUM 8.5 mg/dL (8.5-10.1); CO2 23 mmol/L (21-32); CREATININE 1.4 mg/dL (0.55-1.02); GLUCOSE,RANDOM 96 mg/dL (74-106); MAGNESIUM 1.9 mg/dL (1.8-2.4)
--- NOTE | 2017-11-13 13:01 | DS ---
Physical Exam: SUBJECTIVE: Patient seen and examined. Feels good this am. Wants to be discharged. No acute events overnight. No chest pain, no SOB. Willing to go to a rehab short term. OBJECTIVE: Vital Signs Period Temp Pulse Resp BP Sys/Miller Pulse Ox Last 24 Hr 98 F-99 F 61-73 20-20 151-184/78-98 94-94 Vital Signs Temp 98 F 11/13/17 08:30 Pulse 61 11/13/17 08:30 Resp 20 11/13/17 08:30 BP 159/78 11/13/17 08:30 Pulse Ox 94 L 11/13/17 02:00 Intake & Output 11/12/17 11/13/17 11/13/17 23:59 11:59 23:59 Intake Total 1080 120 Output Total 1 Balance 1079 120 Intake: Oral 1080 120 Output: Urine 1 Void 1 Other: Voiding Method Incontinent Incontinent # Unmeasured Voids Void 1 PHYSICAL EXAM GENERAL: The patient is awake, alert, and fully oriented, in no acute respiratory distress, sating well on room air. HEAD: Normal with no signs of trauma. R forehead bruise resolved EYES: PERRL, extraocular movements intact ENT: oropharynx clear without exudates, moist mucous membranes. NECK: supple. LUNGS: Reduced breath sounds R lung base. Healed pigtail incision scar on R chest posteriorly HEART: Regular rate and rhythm, S1, S2 ABDOMEN: Soft, nontender, nondistended, normoactive bowel sounds EXTREMITIES: 2+ pulses, warm, well-perfused, no edema. NEUROLOGICAL: AAOx3. No facial droop, no lateralizing signs. 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 Hospital course: Fall: The fall is likely mechanical and after PT evaluation, rehabilitation facility was recommended and accepted by patient. Pt had 2 CT heads that were negative for intracranial bleed and has resumed her xarelto for DVT. Acute Kidney Injury: Pt presented with Cr-1.4. Despite hydration and supportive mx she is being discharged on a creatinine of 1.4. Her blood pressure medications- losartan, HCTZ were held while here and are being discontinued. HTN Pt presented with BP -175/101. She had not taken her home meds. While here, she was continued on Labetalol, and amlodipine and started on hydralazine. The nurses however noted that she was not swallowing the medications, and had to ensure she did, before the blood pressure started to improve. DM: Patient was placed on insulin sliding scale while here, with her metformin held. She will be discharged to rehab to resume her metformin and continue insulin sliding scale as needed. Depression Pt was continued on her home remoron Hx of Pneumothorax Pt had R pneumothorax after a previous fall and rib fracture that resolved with pigtail. Pt was not dyspneic on room air and had improved air entry while admitted. Minutes to complete discharge: 37 Discharge Summary Reason For Visit: INJURY OF HEAD; ON ANTICOAGULANT THERAPY Current Active Problems Acute kidney failure (Acute) Anticoagulated (Acute) Fall (Acute) Hypertension (Chronic) Condition: Stable - Instructions Diet, Activity, Other Instructions: You were admitted after a fall, because we were concerned that you were on a blood thinner and could have hit you head You had 2 CT scans done of your head that did not show any bleed into the brain You were continued on your blood thinner You were accessed by physical therapy and found to still be at risk for other falls We are sending you to a rehabilitation center to strengthen your walking and help prevent more falls Follow up with your primary care provider in one week's time If you think your symptoms are getting worse, please return to the emergency Your kidney function was abnormal and your bP medications Losartan and HCTZ are being held. Recommend BMP (basic metabolic panel (blood work for kidneys) in 1 week at the SNF. Continue other medications as prescribed Incentive spirometry every hour when awake Referrals: Jose Cruz Jerez [Primary Care Provider] - 2 Weeks Disposition: [facility] - Home Medications Comprehensive Discharge Medication List: Ambulatory Orders Amlodipine Besylate [Norvasc -] 10 mg PO DAILY 01/28/14 Labetalol HCl [Normodyne -] 400 mg PO Q12H 01/28/14 Levetiracetam [Levetiracetam ER] 500 mg PO BID 01/28/14 Losartan Potassium 50 mg PO DAILY 01/28/14 Acetaminophen [Mapap] 650 mg PO BID 07/16/16 Mirtazapine [Remeron -] 15 mg PO HS 07/16/16 Pantoprazole Sodium 40 mg PO DAILY 07/16/16 hydrALAZINE HCL [Apresoline -] 50 mg PO TID 07/16/16 Rivaroxaban [Xarelto -] 20 mg PO DAILY 07/17/16 Hydrochlorothiazide [Hctz -] 50 mg PO DAILY #30 tablet 11/08/17 Metformin HCl [Metformin HCl ER] 500 mg PO DAILY #30 [id number] 11/08/17 Simvastatin 5 mg PO HS 11/08/17 Albuterol Sulfate Inhaler - [Ventolin HFA Inhaler -] 2 inh PO BID 11/09/17 Aspirin 81 mg PO DAILY 11/09/17 This patient is new to me today: No Emergency Visit: Yes ED Registration Date: 11/09/17 Care time: The patient presented to the Emergency Department on the above date and was hospitalized for further evaluation of their emergent condition. Critical Care patient: No - Discharge Referral [facility]erred to [facility] Med P.C.: No
--- NOTE | 2017-11-13 13:21 | PN ---
Teaching Attending Note Name of Resident: Day Godfrey ATTENDING PHYSICIAN STATEMENT I saw and evaluated the patient. I reviewed the resident's note and discussed the case with the resident. I agree with the resident's findings and plan as documented with exceptions below. SUBJECTIVE: Patient seen and examined, no pain or dyspnea, feels well, eager to go home. OBJECTIVE: Vital Signs Period Temp Pulse Resp BP Sys/Miller Pulse Ox Last 24 Hr 98 F-99 F 61-73 20-20 151-184/78-98 94-94 Intake & Output 11/10/17 11/11/17 11/12/17 11/13/17 23:59 23:59 23:59 23:59 Intake Total 815 617 3714 120 Output Total 1 Balance 848 871 5069 120 General: lying in bed in no acute distress Chest: decreased breath sounds right base, good air entry bilterally Abdomen: soft, NT, ND extremities: no edema Home Medication List Medication Instructions Recorded Confirmed Type Amlodipine Besylate [Norvasc -] 10 mg PO DAILY 01/28/14 11/09/17 History Labetalol HCl [Normodyne -] 400 mg PO Q12H 01/28/14 11/09/17 History Levetiracetam [Levetiracetam ER] 500 mg PO BID 01/28/14 11/09/17 History Losartan Potassium 50 mg PO DAILY 01/28/14 11/09/17 History Acetaminophen [Mapap] 650 mg PO BID 07/16/16 11/09/17 History Mirtazapine [Remeron -] 15 mg PO HS 07/16/16 11/09/17 History Pantoprazole Sodium 40 mg PO DAILY 07/16/16 11/09/17 History hydrALAZINE HCL [Apresoline -] 50 mg PO TID 07/16/16 11/09/17 History Rivaroxaban [Xarelto -] 20 mg PO DAILY 07/17/16 11/09/17 History Simvastatin 5 mg PO HS 11/08/17 11/09/17 History Albuterol Sulfate Inhaler - 2 inh PO BID 11/09/17 11/09/17 History [Ventolin HFA Inhaler -] Aspirin 81 mg PO DAILY 11/09/17 11/09/17 History Active Medications Generic Name Dose Route Start Last Admin Trade Name Freq PRN Reason Stop Dose Admin Acetaminophen 650 mg 11/09/17 18:09 Tylenol - PO Q4H PRN PAIN LEVEL 1-5 Amlodipine Besylate 10 mg 11/12/17 10:00 11/13/17 09:15 Norvasc - PO 10 mg DAILY LEV Administration Aspirin 81 mg 11/10/17 15:30 11/13/17 09:14 Ecotrin - PO 81 mg DAILY LEV Administration Atorvastatin Calcium 10 mg 11/09/17 22:00 11/12/17 21:17 Lipitor - PO 10 mg HS LEV Administration Hydralazine HCl 50 mg 11/10/17 14:00 11/13/17 05:57 Apresoline - PO 50 mg TID LEV Administration Insulin Aspart 1 vial 11/09/17 22:00 11/13/17 11:34 Novolog Vial Sliding Scale - SQ Not Given ACHS [facility] Protocol Labetalol HCl 400 mg 11/09/17 18:30 11/13/17 09:15 Normodyne - PO 400 mg BID LEV Administration Levetiracetam 500 mg 11/09/17 22:00 11/13/17 09:15 Keppra Xr - PO 500 mg BID LEV Administration Pantoprazole Sodium 40 mg 11/09/17 18:30 11/13/17 09:15 Protonix - PO 40 mg DAILY LEV Administration Rivaroxaban 20 mg 11/10/17 18:00 11/12/17 18:52 Xarelto - PO 20 mg DAILY@1800 LEV Administration Laboratory Results - last 24 hr 11/12/17 11/12/17 11/12/17 12:17 16:44 21:20 WBC RBC Hgb Hct MCV MCH MCHC RDW Plt Count MPV Sodium Potassium Chloride Carbon Dioxide Anion Gap BUN Creatinine POC Glucometer 125 115 115 Random Glucose Calcium Phosphorus Magnesium 11/13/17 11/13/17 11/13/17 05:50 06:30 07:30 WBC 6.2 RBC 3.97 Hgb 10.4 L D Hct 32.0 L MCV 80.6 MCH 26.1 MCHC 32.4 RDW 17.2 H Plt Count 207 MPV 9.3 Sodium 143 Potassium 4.0 Chloride 111 H Carbon Dioxide 23 Anion Gap 9 BUN 26 H Creatinine 1.4 H POC Glucometer 82 Random Glucose 96 Calcium 8.5 Phosphorus 4.0 Magnesium 1.9 11/13/17 11:34 WBC RBC Hgb Hct MCV MCH MCHC RDW Plt Count MPV Sodium Potassium Chloride Carbon Dioxide Anion Gap BUN Creatinine POC Glucometer 131 Random Glucose Calcium Phosphorus Magnesium ASSESSMENT AND PLAN: 67 y/o lady with h/o HTN, DM, Schizophrenia ,DVT recently admitted with PNeumothorax/NSTEMI, d/[place] home comes back the next day after mechanical fall. -Mechanical fall -HTN -DEZ vs CKD stage II, overall creatinine stable now -NIDDM -Schizophrenia -DVT -Recent NSTEMi/Pneumothorax. Plan: Doing well. CT brain x 2 neg for concerns. Creatinine stable. Hold ARB/HCTZ. continue amlodipine/labetalol/hydralazine REsume metformin, ISS at SNF. Diabetic diet. Continue xarelto, remeron, ASA. Dispo d/c to SNF today, patient agreable, plan discussed in detail, all questions answered.
[2017-11-13 15:53] VITALS: BP 115/71; PULSE 62; TEMP 97.8
== END 2017-11-13 16:00 ==
LOC: JER 09:38 → JERBED 17:32 → INTOOBSV 17:32 → UNDOADMOB 17:32 → JERBED 18:09 → J8W 19:45
PROVIDERS: ADMIT Internal Medicine; ATTEND Hospitalist
PROC: 3E0337Z Introduction of Electrolytic and Water Balance Substance into Peripheral Vein, Percutaneous Approach (ICD-10-PCS; principal; 2017-11-09)
DX: Z79.01 Long term (current) use of anticoagulants (principal); R26.2 Difficulty in walking, not elsewhere classified; S09.90XA Unspecified injury of head, initial encounter; I10 Essential (primary) hypertension; I16.0 Hypertensive urgency; I82.409 Acute embolism and thrombosis of unspecified deep veins of unspecified lower extremity; I21.4 Non-ST elevation (NSTEMI) myocardial infarction; E11.9 Type 2 diabetes mellitus without complications; F20.9 Schizophrenia, unspecified; N17.9 Acute kidney failure, unspecified; G40.909 Epilepsy, unspecified, not intractable, without status epilepticus; F17.200 Nicotine dependence, unspecified, uncomplicated; R09.02 Hypoxemia; J93.9 Pneumothorax, unspecified; M51.37 Other intervertebral disc degeneration, lumbosacral region; Z79.82 Long term (current) use of aspirin; Z79.84 Long term (current) use of oral hypoglycemic drugs; W19.XXXA Unspecified fall, initial encounter; Y93.89 Activity, other specified; Y92.122 Bedroom in nursing home as the place of occurrence of the external cause
CPT/HCPCS: 36415; 70450-TC; 71045-TC-FY; 80048; 80053; 82962; 83735; 84100; 85025; 85027; 85610; 85730; 93005; 93010; 96360; 96361; 97116-GP; 97161-GP; 99285-25; G0378; J7030